=== PATIENT | female | born 1950 | race Caucasian/White ===

== ENCOUNTER 2017-12-25 16:14 | Emergency (ER) | payer MEDICARE, SELFPAY ==
[2017-12-25 16:15] VITALS: BP 148/107; PULSE 86; RESP 20; TEMP 36.8; O2SAT 98; BMI 23.6
--- NOTE | 2017-12-25 17:33 | CT_ITS ---
CT abdomen pelvis wo con CLINICAL INDICATION: Right flank pain, history of kidney stones ITS.REASON: FLANK PAIN ORDERING PHYSICIAN: Jorge Barrow MD PATIENT AGE: 67 years COMPARISON: 07/12/2016 TECHNIQUE: Axial images obtained with sagittal and coronal reformats. PROCEDURE: Oral Contrast: None IV Contrast: None . FINDINGS: No acute finding lower chest. There is a small hiatal hernia. The liver, gallbladder, spleen, adrenal glands, and pancreas have an unremarkable unenhanced CT appearance. There is right hydronephrosis. There are multiple right renal calculi in the lower pole of the right kidney. Multiple stones are present in the proximal right ureter largest of which measures 6 mm causing moderate right hydronephrosis and proximal hydroureter. There is mild thickening of the soft tissues lateral to the proximal right ureter. The mid and distal right ureter are not dilated with no distal ureteral stones evident. There are small stone fragments present proximal to the largest stone in the proximal right ureter. There is a hyperdensity involving the cortical aspect of the left kidney posteriorly 6 mm consistent with a hyperdense cyst. There is minimal stranding of the fat around the proximal right ureter. Unremarkable appendix. No intestinal obstruction or free air. Urinary bladder decompressed. No evidence of diverticulitis. No acute bony anomalies. IMPRESSION: 6 mm proximal right ureteral stone with small stone fragments proximal to this. This is causing moderate right hydronephrosis and proximal hydroureter. Scattered small stone fragments are present in the lower pole the right kidney. The stones appear fragmented when compared to the previous study except for the larger fragment in the proximal right ureter. Has the patient had interval lithotripsy? There is soft tissue thickening lateral to the proximal right ureter. If the patient has had recent lithotripsy, this could be related to a small amount of hemorrhage. Mild stranding of the proximal ureteral fat.
[2017-12-25 17:43] LABS: Microscopic, Urine URINE MICROSCOPIC (MICROSCOPIC)
[2017-12-25 17:44] LABS: Basophils # 0.1 K/mm3 (0-0.2); Basophils % 0.3 % (0.1-2.0); Eosinophils % 0.2 % (0.1-12.0); Hematocrit 44.2 % (37.0-47.0); Hemoglobin 14.4 g/dL (12.2-16.2); Lymphocytes # 1.7 K/mm3 (0.7-4.5); Lymphocytes % 8.9 K/mm3 (10-50); Mean Corpuscular HGB Conc 32.5 g/dL (31.8-35.4); Mean Corpuscular Hemoglobin 28.3 pg (27.0-31.2); Mean Corpuscular Volume 87.1 fl (81-99); Mean Platelet Volume 7.5 fl (7.4-10.4); Monocytes # 0.6 K/mm3 (0.1-1.0); Monocytes % 3.4 % (1.7-9.3); Neutrophils # 16.4 K/mm3 (1.8-7.8); Neutrophils % 87.2 % (37.0-80.0); Platelet Count 337 K/mm3 (142-424); Red Blood Count 5.07 M/mm3 (4.20-5.40); Red Cell Distribution Width 12.8 % (11.5-17.5); White Blood Count 18.8 K/mm3 (4.8-10.8)
[2017-12-25 17:48] LABS: MANUAL DIFFERENTIAL MANUAL DIFFERENTIAL (MANUAL DIFF)
[2017-12-25 17:49] LABS: Appearance,Urine SL CLOUDY (Clear); Bilirubin,Urine Negative (Negative); Blood, Urine 2+ (Negative); Color,Urine YELLOW (Yellow); Glucose,Urine (UA) Negative (Negative); Ketones,Urine TRACE (Negative); Leukocyte Esterase,Urine 2+ (Negative); Nitrate,Urine POSITIVE (Negative); PH,Urine 6.5 (5.0-8.5); Protein,Urine 2+ (Negative); Specific Gravity, Urine 1.025 (1.005-1.030); Urobilinogen,Urine 0.2 EU/dl (0.2)
[2017-12-25 17:57] LABS: Alanine Aminotransferase 28 U/L (12-78); Albumin Level 3.9 gm/dL (3.4-5.0); Alkaline Phosphatase 148 U/L (46-116); Anion Gap 13.2 mEq/L (5-15); Aspartate Amino Transferase 12 U/L (15-37); Bilirubin,Total 0.5 mg/dL (0.2-1.0); Blood Urea Nitrogen 15 mg/dL (7-18); Calcium 8.8 mg/dL (8.5-10.1); Carbon Dioxide 26 mmol/L (21.0-32.0); Chloride 106 mmol/L (98-107); Creatinine Clearance Estimated 48 mL/min (0-300); Creatinine,Serum 0.87 mg/dL (0.55-1.02); Estimated Glomerular Filt Rate 65 ml/min (>60); GFR (African American) 78 ML/MIN (>60); Globulin 3.8 gm/dl (1.3-3.2); Glucose 111 mg/dL (74-106); Potassium 4.2 mmoL/L (3.5-5.1); Sodium 141 mmol/L (136-145); Total Protein,Serum 7.7 gm/dL (6.4-8.2)
[2017-12-25 17:57] LABS: Bacteria,Urine 3+ /lpf; RBC,Urine Occasional #/hpf (0-3); Squamous Epithelial Cell,Urine Occasional #/hpf (0-5)
[2017-12-25 18:30] LABS: Lymphocytes % 5 % (10-50); Monocytes % 1 % (2-9); Neutrophils % 94 % (42-76); Total Cells Counted 100
[2017-12-25 18:31] LABS: Platelet Estimate Normal; RBC Morphology Normal
--- NOTE | 2017-12-25 18:56 | HMH.EDGENADL ---
ED Disposition Clinical Impression: Right ureteral calculus Urinary tract infection Qualifiers: Urinary tract infection type: acute pyelonephritis Qualified Code(s): N10 - Acute pyelonephritis Disposition: Xfer Short-Term Hosp Condition on Discharge: Fair Referrals: Brooklynn Torres MD [Primary Care Provider] - - Critical Care Critical Care Time: No Attestation: On 12/25/17, the high probability of a clinically significant, sudden or life threatening deterioration of the following system(s) required my full and direct attention, intervention and personal management. The time I documented below is in addition to time spent performing reported procedures but includes the following listed in this critical care notation. Medical Decision Making Vital Signs: 12/25/17 16:15 Temperature 98.2 F Temperature Source Oral Pulse Rate [Right Radial] 86 Respiratory Rate 20 Blood Pressure [Right Arm] 148/107 Blood Pressure Mean [Right Arm] 120 Blood Pressure Source [Right Arm] Automatic Cuff Blood Pressure Position [Right Arm] Sitting 02 Sat by Pulse Oximetry 98 Oxygen Delivery Method Room Air - Lab Data Lab Results 12/25/17 17:35: WBC 18.8 H, RBC 5.07, Hgb 14.4, Hct 44.2, MCV 87.1, MCH 28.3, MCHC 32.5, RDW 12.8, Plt Count 337, MPV 7.5, Neut % (Auto) 87.2 H, Lymph % (Auto) 8.9 L, [place] % (Auto) 3.4, Eos % (Auto) 0.2, Baso % (Auto) 0.3, Neut # (Auto) 16.4 H, Lymph # (Auto) 1.7, [place] # (Auto) 0.6, Eos # (Auto) 0.0, Baso # (Auto) 0.1, Total Counted 100, Neutrophils % (Manual) 94 H, Lymphocytes % (Manual) 5 L, Monocytes % (Manual) 1 L, Platelet Estimate Normal, RBC Morphology Normal 12/25/17 17:35: Sodium 141, Potassium 4.2, Chloride 106, Carbon Dioxide 26, Anion Gap 13.2, BUN 15, Creatinine 0.87, Estimated Creat Clear 48, Estimated GFR 65, Est GFR ( Amer) 78, Glucose 111 H, Calcium 8.8, Total Bilirubin 0.5, AST 12 L, ALT 28, Alkaline Phosphatase 148 H, Total Protein 7.7, Albumin 3.9, Globulin 3.8 H, Albumin/Globulin Ratio 1.0 L 12/25/17 17:39: Urine Color Yellow, Urine Appearance Sl cloudy, Urine pH 6.5, Ur Specific [place] 1.025, Urine Protein 2+, Urine Glucose (UA) Negative, Urine Ketones Trace, Urine Blood 2+, Urine Nitrate Positive, Urine Bilirubin Negative, Urine Urobilinogen 0.2, Ur Leukocyte Esterase 2+ A, Urine RBC Occasional, Urine WBC 5-10, Ur Squamous Epith Cells Occasional, Urine Bacteria 3+ Result diagrams: 12/25/17 17:35 12/25/17 17:35 Orders (Tests/Meds): ED MEDICATIONS Discontinued Medications Generic Name Dose Route Start Last Admin Trade Name Sathishq PRN Reason Stop Dose Admin Sodium Chloride 1,000 mls @ 999 mls/hr 12/25/17 17:45 12/25/17 17:46 Sod Chlor 0.9% 1000ml Bag IV 12/25/17 18:45 999 mls/hr .Q1H1M JEANETTE Administration Ceftriaxone Sodium 1 gm/ 50 mls @ 100 mls/hr 12/25/17 19:14 12/25/17 19:30 Sodium Chloride IV 12/25/17 19:43 100 mls/hr ONCE ONE Administration Ketorolac Tromethamine 30 mg 12/25/17 17:34 12/25/17 17:46 Toradol 30mg/Ml Vial IV 12/25/17 17:35 30 mg ONCE ONE Administration Morphine Sulfate 4 mg 12/25/17 19:14 12/25/17 19:30 Morphine 4mg/Ml Syringe IV 12/25/17 19:15 4 mg ONCE ONE Administration Ondansetron HCl 4 mg 12/25/17 17:34 12/25/17 17:46 Zofran 4mg/2ml Vial IV 12/25/17 17:35 4 mg ONCE ONE Administration Ondansetron HCl 4 mg 12/25/17 19:14 12/25/17 19:30 Zofran 4mg/2ml Vial IV 12/25/17 19:15 4 mg ONCE ONE Administration ORDERS Category Date Time Status Urine Culture Stat Micro 12/25/17 17:39 Received - CT Data CT Scan: Abdomen, Pelvis Time Received: 19:[address] Reviewed: Yes: I have viewed the radiologist's interpretation Findings Narrative: 6 mm proximal right ureteral stone with small stone fragments proximal to that, moderate hydronephrosis. - Justin Inquiry Pt receiving controlled substance: Yes Justin was queried for this patient: No Reason not queried -: Emergent pt c
--- NOTE | 2017-12-25 23:22 | PC.NURSE ---
[facility] CALLED ADVISING THEY HAD A BED SAVED FOR PT, THAT THEY WOULD CALL WITHIN HR AND 1/2, THAT THEY WERE WAITING ON THE HOSPITALIST TO CONFIRM PLACEMENT.
--- NOTE | 2017-12-26 04:04 | PC.NURSE ---
[facility] called with bed placement. pt here to take her .
[2017-12-26 04:08] VITALS: BP 100/48; PULSE 54; RESP 16; TEMP 36.8
== END 2017-12-26 04:09 | disposition short-term general hospital (02) ==
PROVIDERS: Emergency Provider Emergency Medicine; PCP Family Medicine
DX: N13.6 Pyonephrosis (principal); Z87.442 Personal history of urinary calculi; F17.210 Nicotine dependence, cigarettes, uncomplicated; Z88.2 Allergy status to sulfonamides
CPT/HCPCS: 74176; 80053; 81001; 85007; 85025; 87086; 87088; 87186; 96365; 96366; 96367; 96374; 96375; 96376; 99284; J2405

== ENCOUNTER → 2018-03-06 15:29 | Outpatient (CLI) | payer MEDICARE, SELFPAY ==
[2018-03-06 15:56] LABS: Basophils # 0.1 K/mm3 (0-0.2); Basophils % 0.5 % (0.1-2.0); Eosinophils # 0.2 K/mm3 (0.0-0.4); Eosinophils % 1.3 % (0.1-12.0); Hematocrit 42.9 % (37.0-47.0); Hemoglobin 13.9 g/dL (12.2-16.2); Lymphocytes # 2.8 K/mm3 (0.7-4.5); Lymphocytes % 22.9 K/mm3 (10-50); Mean Corpuscular HGB Conc 32.3 g/dL (31.8-35.4); Mean Corpuscular Hemoglobin 28.2 pg (27.0-31.2); Mean Corpuscular Volume 87.1 fl (81-99); Mean Platelet Volume 7.4 fl (7.4-10.4); Monocytes # 0.6 K/mm3 (0.1-1.0); Monocytes % 5.2 % (1.7-9.3); Neutrophils # 8.4 K/mm3 (1.8-7.8); Neutrophils % 70.2 % (37.0-80.0); Platelet Count 314 K/mm3 (142-424); Red Blood Count 4.92 M/mm3 (4.20-5.40); Red Cell Distribution Width 12.6 % (11.5-17.5)
[2018-03-06 17:06] LABS: Free T4 (Free Thyroxine) 2.05 ng/dl (0.76-1.46)
== END ==
PROVIDERS: PCP Family Medicine; Visit Provider Otolaryngology
DX: Z01.818 Encounter for other preprocedural examination (principal); D48.5 Neoplasm of uncertain behavior of skin; E04.9 Nontoxic goiter, unspecified
CPT/HCPCS: 36415; 84439; 84443; 85025; 93005

== ENCOUNTER → 2018-05-12 13:24 | Outpatient (CLI) | payer MEDICARE, SELFPAY ==
[2018-05-12 14:38] LABS: Free T4 (Free Thyroxine) 1.64 ng/dl (0.76-1.46); Thyroid Stimulating Hormone 0.01 uIU/ml (0.358-3.740)
[2018-05-13 15:23] LABS: Triiodothyronine (T3) Free 4.4 pg/mL (2.0-4.4)
== END ==
PROVIDERS: Visit Provider Otolaryngology
DX: E05.00 Thyrotoxicosis with diffuse goiter without thyrotoxic crisis or storm (principal)
CPT/HCPCS: 36415; 84439; 84443; 84481

== ENCOUNTER → 2018-06-05 14:33 | Outpatient (CLI) | payer MEDICARE, SELFPAY ==
[2018-06-05 17:32] LABS: Free T4 (Free Thyroxine) 1.41 ng/dl (0.76-1.46); Thyroid Stimulating Hormone 0.01 uIU/ml (0.358-3.740)
== END ==
PROVIDERS: Visit Provider Otolaryngology
DX: E05.00 Thyrotoxicosis with diffuse goiter without thyrotoxic crisis or storm (principal)
CPT/HCPCS: 36415; 84439; 84443

== ENCOUNTER → 2018-09-18 14:48 | Outpatient (CLI) | payer MEDICARE, SELFPAY ==
[2018-09-18 16:42] LABS: Free T4 (Free Thyroxine) 0.96 ng/dl (0.76-1.46); Thyroid Stimulating Hormone 0.03 uIU/ml (0.358-3.740)
[2018-09-22 11:14] LABS: Triiodothyronine (T3) Free 2.6 pg/mL (2.0-4.4)
== END ==
PROVIDERS: Visit Provider Otolaryngology
DX: E05.00 Thyrotoxicosis with diffuse goiter without thyrotoxic crisis or storm (principal)
CPT/HCPCS: 36415; 84439; 84443; 84481

== ENCOUNTER → 2019-03-03 14:24 | Outpatient (CLI) | payer MEDICARE, SELFPAY ==
--- NOTE | 2019-03-03 14:28 | XR_ITS ---
XR shoulder RT min 2V HISTORY: ITS.REASON: RT SHOULDER PAIN ORDERING PHYSICIAN: Arvind Anton MD PATIENT AGE: 68 years Comparison: None FINDINGS: No fracture or dislocation. No lytic or blastic change. There is normal mineralization. There is mild subacromial stenosis which may result in rotator cuff pathology. No other significant anomalies are evident. IMPRESSION: Mild right subacromial stenosis
== END ==
PROVIDERS: PCP Family Medicine; Visit Provider Family Medicine
DX: M25.511 Pain in right shoulder (principal)
CPT/HCPCS: 73030

== ENCOUNTER 2020-08-23 09:32 | Emergency (ER) | payer MEDICARE, SELFPAY ==
[2020-08-23 09:33] VITALS: BP 135/45; PULSE 68; RESP 19; TEMP 36.9; O2SAT 98; BMI 23.6
[2020-08-23 09:54] LABS: UTC Strep Screen (Rapid) Negative (Negative)
--- NOTE | 2020-08-23 10:26 | HMH.EDUTC ---
[facility] Disposition Clinical Impression: Viral syndrome Pharyngitis Qualifiers: Pharyngitis/tonsillitis etiology: unspecified etiology Qualified Code(s): J02.9 - Acute pharyngitis, unspecified Disposition: Home, Self-Care Condition on Discharge: Good Instructions: DI for Viral Syndrome Additional Instructions: Drink plenty of fluids. Take tylenol for pain or fever. Take the medications as directed. Follow up with your regular doctor. GO TO THE ER FOR ANY WORSENING SYMPTOMS FOLLOW THE DIRECTIONS ON THE COVID-19 HAND OUT THAT WE GAVE YOU REGARDING SELF-ISOLATION UNTIL YOU KNOW YOUR COVID-19 RESULTS Prescriptions: Azithromycin [Z-Jorge 250mg Tab*] 250 mg PO UD DOSE PK #6 tab Transmission Status: Received by [facility] Referrals: Brooklynn Torres MD [Primary Care Provider] - Time of Disposition: 10:31 Medical Decision Making - Medical Records Medical records reviewed: No: I reviewed the patient's medical records. - Justin Inquiry Pt receiving controlled substance: No Vital Signs: 08/23/20 09:33 08/23/20 10:38 Temperature 98.4 F 98.4 F Temperature Source Oral Oral Pulse Rate 68 Pulse Rate [Left Radial] 68 Respiratory Rate 19 19 Blood Pressure 135/45 L Blood Pressure [Right Arm] 135/45 L Blood Pressure Mean [Right Arm] 75 Blood Pressure Source [Right Arm] Automatic Cuff Blood Pressure Position Sitting Blood Pressure Position [Right Arm] Sitting 02 Sat by Pulse Oximetry 98 Oxygen Delivery Method Room Air Room Air - Lab Data Lab results reviewed: Yes: I reviewed the patient's lab results. Lab Results 08/23/20 09:53: Strep Scn Rapid Clinic Negative Orders (Tests/Meds): ORDERS Category Date Time Status Covid-19 Nasal PCR Sendout [place] Routine Lab 08/23/20 10:08 Ordered Strep Screen Confirmation Stat Micro 08/23/20 09:53 Stop Req [facility] HPI - General Stated complaint: sore throat,headache Time Seen by Provider: 08/23/20 09:35 Mode of Arrival: Ambulatory Source of Information: Patient Limitations: No Limitations Description of Symptoms (Recalled from Triage Doc. by RN): c/o headache and sore throat since Saturday HEENT Symptoms (Recalled from RN notes): Yes Resp Symptoms (Recalled from RN notes): No Skin Symptoms (Recalled from RN notes): No MS Symptoms (Recalled from RN notes): No Functional Status (Recalled from RN notes): wnl - History of Present Illness Provider Complaint: She c/o sore throat, sinus drainage, right ear pain, head ache and feeling bad for the past 2 days. - Related Data Previous Rx's Medication Instructions Recorded methimazole 5 mg tablet 5 mg PO DAILY #90 tab 09/22/18 Azithromycin [Z-Jorge 250mg Tab*] 250 mg PO UD DOSE PK #6 tab 08/23/20 Allergies Allergy/AdvReac Type Severity Reaction Status Date / Time Sulfa (Sulfonamide Allergy Unknown Verified 06/09/18 13:43 Antibiotics) - Worker's Comp Is this a Worker's Comp case?: No [facility] History - Hepatitis A Screen Drug use history?: No High risk sexual behaviors?: No History of sexually transmitted infection?: No Currently employed?: No Childcare worker?: No Do you have indoor plumbing?: Yes Do you have electricity?: Yes Attestation statement:: This patient has been screened for Hepatitis A risk factors. I have reviewed the patient's past medical history: Yes Medical History: Reports:: Kidney Stones Denies:: Cancer, Diabetes Mellitus Type 1, Diabetes Mellitus Type 2, Internal Pacemaker, MRSA, Seizures Other Medical History: Reports: Thyroid Disease. Denies: Blood Transfusion Reaction Laterality Cases: Left: Arthroscopy Shoulder Other Surgeries: Yes: Thyroidectomy, Tubal Ligation, Other. No: Pacemaker Amputation: No Fractures: No - Social History Smoking Status: Current every day smoker Tobacco Type: cigarettes # Packs/Day (cigarettes): 1 Alcohol Intake: never Alcohol Intake Frequency:: other Substance Use Type: denies use Occupational Status
[2020-08-23 10:38] VITALS: BP 135/45; PULSE 68; RESP 19; TEMP 36.9; O2SAT 98
--- NOTE | 2020-08-24 14:08 | PC.NURSE ---
PT CALLED AND RESULTS GIVEN OF COVID TEST
== END 2020-08-23 10:39 | disposition home or self-care (01) ==
PROVIDERS: Emergency Provider Nurse Practitioner Family; PCP Family Medicine
DX: Z20.828 Contact with and (suspected) exposure to other viral communicable diseases (principal); B34.9 Viral infection, unspecified; Z88.2 Allergy status to sulfonamides; Z87.442 Personal history of urinary calculi; F17.210 Nicotine dependence, cigarettes, uncomplicated
CPT/HCPCS: G0463; 87880; 99202; U0003

== ENCOUNTER 2020-08-28 11:09 | Emergency (ER) | payer MEDICARE, SELFPAY ==
[2020-08-28 11:20] VITALS: BP 139/73; PULSE 71; RESP 17; TEMP 36.7; O2SAT 96; BMI 24.5
--- NOTE | 2020-08-28 11:26 | XR_ITS ---
PROCEDURE: XR CHEST 2V CLINICAL HISTORY: WEAKNESS Smoking history COMPARISON: CR CXR CHEST(2 VIEWS-NOT PORTABLE) from 06/24/2014 FINDINGS: The cardiomediastinal silhouette and pulmonary vascularity are within normal limits. The lungs are clear without infiltrates, suspicious nodules, or pleural effusions. There are calcified left hilar nodes. There is a total left shoulder prosthesis noted. There is prominent degenerate change of the right shoulder with high-riding humeral head and marked subacromial stenosis. No acute bony abnormalities. IMPRESSION: No acute findings. Dictated by: Dr. Ge Mclean MD 08/28/2020 14:32 Dr. Ge Mclean MD in [place] 08/28/2020 14:32
--- NOTE | 2020-08-28 11:30 | ECG_ITS ---
APPROVED REPORT Exam: Resting ECG HR:60 bpm ECG Measurements Heart Rate 60 AXES VA 158 P 54 QRSd 78 QRS 25 QT 388 T 46 QTc 388 Conclusion Normal sinus rhythm Normal ECG Electronically signed by : Alfredito Alcantara, 09/02/2020 11:35:00
--- NOTE | 2020-08-28 11:42 | HMH.EDWEAK ---
ED Disposition Clinical Impression: Acute UTI (urinary tract infection), Acute kidney injury Disposition: Home, Self-Care Condition on Discharge: Good Instructions: DI for Urinary Tract Infection (UTI) Prescriptions: cephALEXin [Keflex 500mg Cap] 500 mg PO BID #14 cap Transmission Status: Pending to [facility] Referrals: Brooklynn Torres MD [Primary Care Provider] - - Critical Care Critical Care Time: No Attestation: On 08/28/20, the high probability of a clinically significant, sudden or life threatening deterioration of the following system(s) required my full and direct attention, intervention and personal management. The time I documented below is in addition to time spent performing reported procedures but includes the following listed in this critical care notation. Medical Decision Making - Medical Records Medical records reviewed: Yes: I reviewed the patient's medical records. - Justin Inquiry Pt receiving controlled substance: No Vital Signs: 08/28/20 11:20 Temperature 98.0 F Temperature Source Oral Pulse Rate [Right Radial] 71 Respiratory Rate 17 Blood Pressure [Right Arm] 139/73 Blood Pressure Mean [Right Arm] 95 02 Sat by Pulse Oximetry 96 Oxygen Delivery Method Room Air - Lab Data Lab Results 08/28/20 11:39: Urine Color Yellow, Urine Appearance Cloudy, Urine pH 6.0, Ur Specific [place] 1.025, Urine Protein Negative, Urine Glucose (UA) Negative, Urine Ketones Negative, Urine Blood Trace-l, Urine Nitrate Positive, Urine Bilirubin Negative, Urine Urobilinogen 0.2, Ur Leukocyte Esterase 2+ A, Urine RBC 3-5, Urine WBC 20-50, Ur Squamous Epith Cells 3-5, Amorphous Sediment 1+, Urine Bacteria 2+, Hyaline Casts Occasional, Urine Mucus 2+ 08/28/20 11:40: Troponin I < 0.01, TSH 0.87 08/28/20 11:40: WBC 16.5 H, RBC 5.21, Hgb 15.7, Hct 47.2 H, MCV 90.6, MCH 30.2, MCHC 33.3, RDW 13.1, Plt Count 367, MPV 7.8, Neut % (Auto) 78.2, Lymph % (Auto) 14.9, [place] % (Auto) 4.8, Eos % (Auto) 1.2, Baso % (Auto) 0.8, Neut # (Auto) 12.9 H, Lymph # (Auto) 2.5, [place] # (Auto) 0.8, Eos # (Auto) 0.2, Baso # (Auto) 0.1, Total Counted 100, Neutrophils % (Manual) 65, Lymphocytes % (Manual) 23, Monocytes % (Manual) 10 H, Eosinophils % (Manual) 2, Platelet Estimate Normal, RBC Morphology Normal 08/28/20 11:40: Sodium 139, Potassium 3.8, Chloride 104, Carbon Dioxide 27, Anion Gap 11.8, BUN 19 H, Creatinine 1.10 H, Estimated Creat Clear 44, Estimated GFR 49 L, Est GFR ( Amer) 59, Glucose 99, Calcium 9.9, Total Bilirubin 0.6, AST 28, ALT 26, Alkaline Phosphatase 121, Total Protein 7.7, Albumin 4.5, Globulin 3.2, Albumin/Globulin Ratio 1.4 08/28/20 11:40: Free T4 1.55 Result diagrams: 08/28/20 11:40 08/28/20 11:40 Orders (Tests/Meds): ED MEDICATIONS Generic Name Dose Route Start Last Admin Trade Name Freq PRN Reason Stop Dose Admin Ceftriaxone Sodium 1 gm/ 50 mls @ 100 mls/hr 08/28/20 12:15 08/28/20 12:18 Sodium Chloride IV 09/11/20 12:14 100 mls/hr Q24H JEANETTE Administration Protocol Discontinued Medications Generic Name Dose Route Start Last Admin Trade Name Freq PRN Reason Stop Dose Admin Sodium Chloride 1,000 mls @ 999 mls/hr 08/28/20 11:30 08/28/20 11:39 Sod Chlor 0.9% 1000ml Bag IV 08/28/20 12:30 999 mls/hr .Q1H1M JEANETTE Administration ORDERS Category Date Time Status XR chest 2V Stat Exams 08/28/20 11:26 Taken Troponin I Q3H Lab 08/28/20 14:30 Ordered Troponin I Q3H Lab 08/28/20 17:30 Ordered Urine Culture Stat Micro 08/28/20 11:39 Received - Radiology Data #1 Image(s): Chest Image Reviewed: Yes I reviewed the patient's radiology results, Yes I reviewed the patient's radiology image Preliminary Findings: Normal/NAD - ECG Data Tracing #1 Normal ventricular rate of 60 bpm. Normal TX interval. Normal QTC. Consultation was normal sinus rhythm with no ST changes. ECG initial impression date: 08/28/20 ECG initial impression time: 11:32 No
[2020-08-28 11:46] LABS: Microscopic, Urine URINE MICROSCOPIC (MICROSCOPIC)
[2020-08-28 11:48] LABS: Basophils # 0.1 K/mm3 (0-0.2); Basophils % 0.8 % (0.1-2.0); Eosinophils # 0.2 K/mm3 (0.0-0.4); Eosinophils % 1.2 % (0.1-12.0); Hematocrit 47.2 % (37.0-47.0); Hemoglobin 15.7 g/dL (12.2-16.2); Lymphocytes # 2.5 K/mm3 (0.7-4.5); Lymphocytes % 14.9 % (10-50); Mean Corpuscular HGB Conc 33.3 g/dL (31.8-35.4); Mean Corpuscular Hemoglobin 30.2 pg (27.0-31.2); Mean Corpuscular Volume 90.6 fl (81-99); Mean Platelet Volume 7.8 fl (7.4-10.4); Monocytes # 0.8 K/mm3 (0.1-1.0); Monocytes % 4.8 % (1.7-9.3); Neutrophils # 12.9 K/mm3 (1.8-7.8); Neutrophils % 78.2 % (37.0-80.0); Platelet Count 367 K/mm3 (142-424); Red Blood Count 5.21 M/mm3 (4.20-5.40); Red Cell Distribution Width 13.1 % (11.5-17.5); White Blood Count 16.5 K/mm3 (4.8-10.8)
[2020-08-28 11:48] LABS: Appearance,Urine CLOUDY (Clear); Bilirubin,Urine Negative (Negative); Blood, Urine TRACE-L (Negative); Color,Urine YELLOW (Yellow); Glucose,Urine (UA) Negative (Negative); Ketones,Urine Negative (Negative); Leukocyte Esterase,Urine 2+ (Negative); Nitrate,Urine POSITIVE (Negative); Protein,Urine Negative (Negative); Specific Gravity, Urine 1.025 (1.005-1.030); Urobilinogen,Urine 0.2 EU/dl (0.2)
[2020-08-28 11:52] LABS: MANUAL DIFFERENTIAL MANUAL DIFFERENTIAL (MANUAL DIFF)
[2020-08-28 11:53] LABS: Chloride 104 mmol/L (98-107); Potassium 3.8 mmoL/L (3.5-5.1); Sodium 139 mmol/L (136-145)
[2020-08-28 11:55] LABS: Blood Urea Nitrogen 19 mg/dl (7-17); Creatinine Clearance Estimated 44 mL/min (50-200); Estimated Glomerular Filt Rate 49 ml/min (>60); GFR (African American) 59 ML/MIN (>60)
[2020-08-28 11:56] LABS: Alanine Aminotransferase 26 U/L (12-78); Albumin Level 4.5 g/dl (3.5-5.0); Albumin/Globulin Ratio 1.4 (1.1-1.8); Alkaline Phosphatase 121 U/L (38-126); Anion Gap 11.8 mEq/L (5-15); Aspartate Amino Transferase 28 U/L (14-36); Bilirubin,Total 0.6 mg/dl (0.2-1.3); Calcium 9.9 mg/dl (8.4-10.2); Carbon Dioxide 27 mmol/L (22.0-30.0); Globulin 3.2 g/dL (1.3-3.2); Glucose 99 mg/dl (74-100); Total Protein,Serum 7.7 g/dl (6.3-8.2)
[2020-08-28 11:57] LABS: Amorphous Sediment,Urine 1+ /lpf; Bacteria,Urine 2+ /lpf; Hyaline Casts,Urine Occasional #/lpf (0); Mucus,Urine 2+ /lpf; WBC,Urine 20-50 #/hpf (0-3)
[2020-08-28 12:00] LABS: Eosinophils % 2 % (0-3); Lymphocytes % 23 % (10-50); Monocytes % 10 % (2-9); Neutrophils % 65 % (42-76); Platelet Estimate Normal; RBC Morphology Normal; Total Cells Counted 100
[2020-08-28 12:14] LABS: Troponin I < 0.01 ng/ml (0.00-0.034)
[2020-08-28 12:26] LABS: Free T4 (Free Thyroxine) 1.55 ng/dl (0.78-2.19)
[2020-08-28 12:27] LABS: Thyroid Stimulating Hormone 0.87 uIU/mL (0.465-4.68)
[2020-08-28 12:59] VITALS: BP 153/74; PULSE 75; RESP 15; TEMP 36.8; O2SAT 98
== END 2020-08-28 13:05 | disposition home or self-care (01) ==
PROVIDERS: Emergency Medicine; Emergency Provider Nurse Practitioner Family; PCP Family Medicine
DX: N30.00 Acute cystitis without hematuria (principal); N17.9 Acute kidney failure, unspecified; F17.210 Nicotine dependence, cigarettes, uncomplicated
CPT/HCPCS: 71046; 80053; 81001; 84439; 84443; 84484; 85007; 85025; 87086; 87088; 87186; 93005; 96365; 96367; 99283

== ENCOUNTER 2021-10-25 17:49 | Inpatient (IN) | payer MEDICARE, SELFPAY ==
[2021-10-25] VITALS (8 sets, daily range): BP systolic 123–156; BP diastolic 59–109; PULSE 59–75; RESP 16–18; TEMP 36.7–36.8; O2SAT 94–99; BMI 24.5; BMI 24.7
--- NOTE | 2021-10-25 18:06 | CT_ITS ---
PROCEDURE INFORMATION: Exam: CT Abdomen And Pelvis With Contrast Exam date and time: 10/25/2021 6:06 PM Age: 71 years old Clinical indication: Abdominal pain; Generalized TECHNIQUE: Imaging protocol: Computed tomography of the abdomen and pelvis with contrast. Radiation optimization: All CT scans at this facility use at least one of these dose optimization techniques: automated exposure control; mA and/or kV adjustment per patient size (includes targeted exams where dose is matched to clinical indication); or iterative reconstruction. Contrast material: ISOVUE; Contrast volume: 75 ml; Contrast route: IV; COMPARISON: ABDPELWO CT abdomen pelvis wo con 12/25/2017 5:44 PM FINDINGS: Lungs: Calcified granuloma at the left lung base. Mediastinal space: Small hiatal hernia with potential wall thickening lower esophagus. Liver: Normal. No mass. Gallbladder and bile ducts: No calcified stones. No ductal dilation. Pancreas: Normal enhancement. No ductal dilation. Spleen: Wedge-shaped hypodensity involving the mid spleen measuring approximately 4.2 x 6.5 cm with serpiginous hyperdensity near the hilum. Adrenal glands: No mass. Kidneys and ureters: Renal cysts measuring up to 11 mm. 18 mm nonobstructing right lower pole renal calcification. Stomach and bowel: No obstruction. No mucosal thickening. Appendix: No evidence of appendicitis. Intraperitoneal space: No free air. No significant fluid collection. Vasculature: No abdominal aortic aneurysm. Lymph nodes: No enlarged lymph nodes. Urinary bladder: No acute abnormality. Reproductive: No acute abnormality. Bones/joints: No acute fracture. Soft tissues: No soft tissue swelling. IMPRESSION: 1. Wedge-shaped hypodensity involving the mid spleen compatible with splenic infarction with serpiginous hyperdensity near the hilum which which I favor represents opacified vessels over active extravasation. 2. Small hiatal hernia with potential wall thickening lower esophagus which can be seen with infectious or infiltrating processes. Consider correlation with direct inspection. 3. 18 mm nonobstructing right lower pole renal calcification.
--- NOTE | 2021-10-25 18:26 | HMH.EDABDPAI ---
ED Disposition <Collin Johnson - Last Filed: 10/25/21 19:37> Condition on Discharge: Good - Critical Care Critical Care Time: No <Jaime Byrd - Last Filed: 10/25/21 20:57> Clinical Impression: Infarction of spleen, Tobacco use Disposition: Admitted As Inpatient Attestation: On 10/25/21, the high probability of a clinically significant, sudden or life threatening deterioration of the following system(s) required my full and direct attention, intervention and personal management. The time I documented below is in addition to time spent performing reported procedures but includes the following listed in this critical care notation. Medical Decision Making - Medical Records Medical records reviewed: Yes: I reviewed the patient's medical records. - Lab Data Lab results reviewed: Yes: I reviewed the patient's lab results. Result diagrams: 10/25/21 18:17 10/25/21 18:17 <Collin Johnson - Last Filed: 10/25/21 19:37> - Justin Inquiry Pt receiving controlled substance: No - Lab Data Result diagrams: 10/25/21 18:17 10/25/21 18:17 - CT Data CT Scan: Abdomen, Pelvis Time Received: 20:[address] Reviewed: Yes: I have viewed the radiologist's interpretation Preliminary Findings: Abnormal (spleenic infart) - ECG Data Tracing #1 Normal Sinus Rhythm: Yes Ischemic changes: non-specific ST-T wave changes - Physician Consults Physician Consulted: natividad Reason -: Admission <Jaime Byrd - Last Filed: 10/25/21 20:57> Vital Signs: 10/25/21 17:58 Temperature 98.3 F Temperature Source Oral Pulse Rate [Right Radial] 75 Respiratory Rate 16 Blood Pressure [Right Arm] 156/73 H Blood Pressure Mean [Right Arm] 100 Blood Pressure Source [Right Arm] Automatic Cuff Blood Pressure Position [Right Arm] Sitting 02 Sat by Pulse Oximetry 98 Oxygen Delivery Method Room Air - Lab Data Lab Results 10/25/21 18:17: WBC 13.7 H, RBC 5.14, Hgb 15.6, Hct 48.5 H, MCV 94.3, MCH 30.4, MCHC 32.2, RDW 13.1, Plt Count 330, MPV 8.3, Neut % (Auto) 75.6, Lymph % (Auto) 16.3, [place] % (Auto) 5.1, Eos % (Auto) 1.0, Baso % (Auto) 1.9, Neut # (Auto) 10.4 H, Lymph # (Auto) 2.3, [place] # (Auto) 0.7, Eos # (Auto) 0.1, Baso # (Auto) 0.3 H 10/25/21 18:17: PT 11.1, INR 0.98, APTT 24.3 10/25/21 18:17: Sodium 137, Potassium 3.7, Chloride 103, Carbon Dioxide 26, Anion Gap 11.7, BUN 16, Creatinine 1.00, Estimated Creat Clear 47, Estimated GFR 55 L, Est GFR ( Amer) 66, Glucose 127 H, Calcium 10.3 H, Total Bilirubin 1.0, AST 38 H, ALT 16, Alkaline Phosphatase 91, Total Protein 7.6, Albumin 4.5, Globulin 3.1, Albumin/Globulin Ratio 1.5 10/25/21 18:17: Lactate 1.3 10/25/21 20:06: Urine Color Yellow, Urine Appearance Sl cloudy, Urine pH 6.0, Ur Specific [place] 1.010, Urine Protein Negative, Urine Glucose (UA) Negative, Urine Ketones Negative, Urine Blood 1+, Urine Nitrate Positive, Urine Bilirubin Negative, Urine Urobilinogen 0.2, Ur Leukocyte Esterase 2+ A Orders (Tests/Meds): ED MEDICATIONS Generic Name Dose Route Start Last Admin Trade Name Freq PRN Reason Stop Dose Admin Sodium Chloride 1,000 mls @ 999 mls/hr 10/25/21 20:30 Sod Chlor 0.9% 1000ml Bag IV 10/25/21 21:30 .Q1H1M JEANETTE Discontinued Medications Generic Name Dose Route Start Last Admin Trade Name Freq PRN Reason Stop Dose Admin Iopamidol 75 ml 10/25/21 19:22 10/25/21 19:23 Iopamidol-370 (76%);100ml Bottle IV 10/25/21 19:23 75 ml ONCE ONE Administration Morphine Sulfate 4 mg 10/25/21 18:07 10/25/21 18:21 Morphine 4mg/Ml Syringe IV 10/25/21 18:08 4 mg ONCE ONE Administration Ondansetron HCl 4 mg 10/25/21 18:07 10/25/21 18:21 Ondansetron 4mg/2ml Vial IV 10/25/21 18:08 4 mg ONCE ONE Administration Sodium Chloride 10 ml 10/25/21 19:22 10/25/21 19:23 Sodium Chloride 0.9% 10ml Syr (Rad Only) IV 10/25/21 19:23 10 ml ONCE ONE Administration ORDERS Category Date Time Status Antiphosphatidylserine I
[2021-10-25 18:30] LABS: Basophils # 0.3 K/mm3 (0-0.2); Basophils % 1.9 % (0.1-2.0); Eosinophils # 0.1 K/mm3 (0.0-0.4); Hematocrit 48.5 % (37.0-47.0); Hemoglobin 15.6 g/dL (12.2-16.2); Lymphocytes # 2.3 K/mm3 (0.7-4.5); Lymphocytes % 16.3 % (10-50); Mean Corpuscular HGB Conc 32.2 g/dL (31.8-35.4); Mean Corpuscular Hemoglobin 30.4 pg (27.0-31.2); Mean Corpuscular Volume 94.3 fl (81-99); Mean Platelet Volume 8.3 fl (7.4-10.4); Monocytes # 0.7 K/mm3 (0.1-1.0); Monocytes % 5.1 % (1.7-9.3); Neutrophils # 10.4 K/mm3 (1.8-7.8); Neutrophils % 75.6 % (37.0-80.0); Platelet Count 330 K/mm3 (142-424); Red Blood Count 5.14 M/mm3 (4.20-5.40); Red Cell Distribution Width 13.1 % (11.5-17.5); White Blood Count 13.7 K/mm3 (4.8-10.8)
[2021-10-25 18:38] LABS: Activated Partial Thrombo Time 24.3 seconds (22.8-30.6); INR 0.98 (0.9-1.1); Prothrombin Time 11.1 seconds (10.1-12.5)
[2021-10-25 18:41] LABS: Alanine Aminotransferase 16 U/L (12-78); Albumin Level 4.5 g/dl (3.5-5.0); Albumin/Globulin Ratio 1.5 (1.1-1.8); Alkaline Phosphatase 91 U/L (38-126); Anion Gap 11.7 mEq/L (5-15); Aspartate Amino Transferase 38 U/L (14-36); Blood Urea Nitrogen 16 mg/dl (7-17); Calcium 10.3 mg/dl (8.4-10.2); Carbon Dioxide 26 mmol/L (22.0-30.0); Chloride 103 mmol/L (98-107); Creatinine Clearance Estimated 47 mL/min (50-200); Estimated Glomerular Filt Rate 55 ml/min (>60); GFR (African American) 66 ML/MIN (>60); Globulin 3.1 g/dL (1.3-3.2); Glucose 127 mg/dl (74-100); Lactic Acid 1.3 mmol/L (0.7-2.1); Potassium 3.7 mmoL/L (3.5-5.1); Sodium 137 mmol/L (136-145); Total Protein,Serum 7.6 g/dl (6.3-8.2)
--- NOTE | 2021-10-25 20:14 | PC.NURSE ---
Carson speaking with MICHAEL at this time.
[2021-10-25 20:22] LABS: Microscopic, Urine URINE MICROSCOPIC (MICROSCOPIC)
[2021-10-25 20:28] LABS: Coronavirus 19, PCR Not Detected (NotDetected); Influenza A, PCR Not Detected (NotDetected); Influenza B, PCR Not Detected (NotDetected)
--- NOTE | 2021-10-25 20:31 | PC.NURSE ---
Carson speaking with at this time.
--- NOTE | 2021-10-25 20:36 | ECG_ITS ---
APPROVED REPORT Exam: Resting ECG HR:50 bpm ECG Measurements Heart Rate 50 AXES NE 166 P 72 QRSd 76 QRS 59 QT 428 T 65 QTc 390 Conclusion Sinus bradycardia Otherwise normal ECG Electronically signed by : Jame Peoples MD 10/27/2021 12:38:13
[2021-10-25 20:45] LABS: Appearance,Urine SL CLOUDY (Clear); Bilirubin,Urine Negative (Negative); Blood, Urine 1+ (Negative); Color,Urine YELLOW (Yellow); Glucose,Urine (UA) Negative (Negative); Ketones,Urine Negative (Negative); Leukocyte Esterase,Urine 2+ (Negative); Nitrate,Urine POSITIVE (Negative); Protein,Urine Negative (Negative); Urobilinogen,Urine 0.2 EU/dl (0.2)
--- NOTE | 2021-10-25 21:02 | XR_ITS ---
PROCEDURE INFORMATION: Exam: XR Chest Exam date and time: 10/25/2021 9:02 PM Age: 71 years old Clinical indication: Abnormal findings; Patient HX: Spleen issue found on cat scan a few minutes ago. Cat scan was abdomen/pelvis. ; Additional info: Pain TECHNIQUE: Imaging protocol: XR of the chest. Views: 1 view. COMPARISON: CR XR CHEST 2V 08/28/2020 11:38 AM FINDINGS: Lungs: Chronic appearing interstitial coarsening. No consolidation. Pleural spaces: No pneumothorax. Heart/Mediastinum: No cardiomegaly. Bones/joints: Postsurgical changes to the left shoulder. No acute abnormality. IMPRESSION: No acute findings.
[2021-10-25 21:14] LABS: Amylase 115 U/L (30-110); Lipase 70 U/L (23-300)
[2021-10-25 21:21] LABS: INR 0.99 (0.9-1.1); Prothrombin Time 11.2 seconds (10.1-12.5)
[2021-10-25 21:28] LABS: Bacteria,Urine 1+ /lpf
--- NOTE | 2021-10-25 23:11 | PC.NURSE ---
PT ARRIVED TO [facility] VIA W/C FROM ED W/STAFF @ 1386
--- NOTE | 2021-10-26 | CA_ITS ---
APPROVED REPORT Bilateral Upper Extremity Venous Study for DVT. 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 Normal flow, augmentation and compression is seen. No evidence of Deep Vein Thrombosis. No abnormalities are demonstrated. SCV (R): Normal phasic flow is seen. Normal flow, augmentation and compression is seen. No evidence of Deep Vein Thrombosis. No abnormalities are demonstrated. Axillary (R): Normal phasic flow is seen. Normal flow, augmentation and compression is seen. No evidence of Deep Vein Thrombosis. No abnormalities are demonstrated. Brachial (R): Normal phasic flow is seen. Normal flow, augmentation and compression is seen. No evidence of Deep Vein Thrombosis. No abnormalities are demonstrated. Basilic (R): Normal phasic flow is seen. Normal flow, augmentation and compression is seen. No evidence of Deep Vein Thrombosis. No abnormalities are demonstrated. Cephalic (R): Normal phasic flow is seen. Normal flow, augmentation and compression is seen. No evidence of Deep Vein Thrombosis. No abnormalities are demonstrated. Radial (R): Normal phasic flow is seen. Normal flow, augmentation and compression is seen. No evidence of Deep Vein Thrombosis. No abnormalities are demonstrated. Ulnar (R): Normal phasic flow is seen. Normal flow, augmentation and compression is seen. No evidence of Deep Vein Thrombosis. No abnormalities are demonstrated. IJV (L): Normal phasic flow is seen. Normal flow, augmentation and compression is seen. No evidence of Deep Vein Thrombosis. No abnormalities are demonstrated. SCV (L): Normal phasic flow is seen. Normal flow, augmentation and compression is seen. No evidence of Deep Vein Thrombosis. No abnormalities are demonstrated. Axillary (L): Normal phasic flow is seen. Normal flow, augmentation and compression is seen. No evidence of Deep Vein Thrombosis. No abnormalities are demonstrated. Brachial (L): Normal phasic flow is seen. Normal flow, augmentation and compression is seen. No evidence of Deep Vein Thrombosis. No abnormalities are demonstrated. Basilic (L): Normal phasic flow is seen. Normal flow, augmentation and compression is seen. No evidence of Deep Vein Thrombosis. No abnormalities are demonstrated. Cephalic (L): Normal phasic flow is seen. Normal flow, augmentation and compression is seen. No evidence of Deep Vein Thrombosis. No abnormalities are demonstrated. Radial (L): Normal phasic flow is seen. Normal flow, augmentation and compression is seen. No evidence of Deep Vein Thrombosis. No abnormalities are demonstrated. Ulnar (L): Normal phasic flow is seen. Normal flow, augmentation and compression is seen. No evidence of Deep Vein Thrombosis. No abnormalities are demonstrated. Findings Imaging reveals a widely patent Internal Jugular Vein, Deep Venous System and Superficial Venous System bilaterally. No evidence of intraluminal venous thrombosis bilaterally. Spontaneous phasic flow is visualized. Negative for DVT. Conclusion Imaging reveals a widely patent Internal Jugular Vein, Deep Venous System and Superficial Venous System bilaterally. No evidence of intraluminal venous thrombosis bilaterally. Spontaneous phasic flow is visualized. Negative for DVT. Electronically signed by : Rahul Polanco MD 10/26/2021 14:30:51
--- NOTE | 2021-10-26 | CA_ITS ---
APPROVED REPORT EXAM: Comprehensive 2D, Doppler, and color-flow Echocardiogram Spring Fitter: Danika Maldonado RT(R) Ht: 5 ft 1 in Wt: 131lbs BSA: 1.58 BP: 147/47 mmHg Indications: Splenic infarct, smoker 2D Dimensions LVOT 1.83 cm (M/F) 1.5-2.5 LA Volume 38.80 mL LA Volume Index 24.71 mL/m2 (M/F) 16-34 M-Mode Dimensions RVDd 2.35 cm (0.9-2.6) LA Diam 2.98 cm (1.9-4.0) LVDd 4.41 cm (3.5-5.7) Ao Diam 2.33 cm (2.0-3.7) LVDs 3.80 cm (3.5-5.7) IVSd 0.65 cm (0.6-1.1) PWd 0.84 cm (0.6-1.1) EF (Teich) 55.60% FS 13.80% EDV (Teich) 88.20 mL ESV (Teich) 62.00 mL LV Diastology E Decel Time 180.00 (160-240 msec) E/A Ratio 1.0 MED E' 7.60 (< 7 cm/sec) E'/MED E' Ratio 11.64 (>14) LAT E' 9.50 (<10 cm/sec) E/LAT E' Ratio 9.32 (>14) Mitral Valve MV E Max Morales. 88.00 (40-130 cm/s) MV A Velocity 92.00 (40-130 cm/s) E/A Ratio 0.96 MV Decel. Time 180.00 (160-240 ms) MV PHT 53.00 ms Tricuspid Valve TR P. Velocity 268.00 cm/s RAP Estimate 10.00 mmHg RVSP 38.80 mmHg Left Ventricle Left atrium is mildly enlarged, left ventricle is normal size, visually estimated ejection fraction 55% with no regional wall motion abnormality, diastolic parameters are inconclusive. Right Ventricle Right atrium and right ventricle are normal size and contractility. Aortic Valve Aortic valve is minimally thickened and fibrosed, there is no aortic stenosis or aortic insufficiency. Mitral Valve Mitral valve grossly normal, there is trace mitral regurgitation. Tricuspid Valve Tricuspid valve grossly normal, there is trace tricuspid regurgitation, tricuspid regurgitation jet velocity is inadequate for calculation of the right ventricular systolic pressure. Pulmonic Valve Pulmonic valve is poorly visualized. Great Vessels Aortic root is normal size. Inferior vena cava is poorly visualized Pericardium No significant pericardial effusion noted. Conclusion 1. Mildly enlarged left atrium, normal left ventricular size, visually estimated ejection fraction 55% with no regional wall motion abnormality, diastolic parameters are inconclusive. 2. Trace mitral and tricuspid regurgitation. 3. No significant pericardial effusion noted. Electronically signed by : Anuj Sorto MD 10/26/2021 18:49:58
--- NOTE | 2021-10-26 | CA_ITS ---
APPROVED REPORT Bilateral Lower Extremity Venous Study for DVT. Commercial Lawn Specialist: LOTTIE Indications Current Smoker splenic infarct, abdominal pain, smoker Risk Factors Current Smoker Vein Imaging CFV (R): compressive, spontaneous, phasic, augmentation FEM (R): compressive, spontaneous, phasic, augmentation POP (R): compressive, spontaneous, phasic, augmentation PTV (R): Compressible GSV (R): compressive, spontaneous, phasic, augmentation Peroneals (R):Compressible CFV (L): compressive, spontaneous, phasic, augmentation FEM (L): compressive, spontaneous, phasic, augmentation POP (L): compressive, spontaneous, phasic, augmentation PTV (L): Compressible GSV (L): compressive, spontaneous, phasic, augmentation Peroneals (L):Compressible Findings No evidence of DVT or superficial thrombophlebitis in the veins scanned of the right lower extremity. No evidence of DVT or superficial thrombophlebitis in the veins scanned of the left lower extremity. Conclusion No evidence of DVT or superficial thrombophlebitis in the veins scanned of the right lower extremity. No evidence of DVT or superficial thrombophlebitis in the veins scanned of the left lower extremity. Electronically signed by : Rahul Polanco MD 10/26/2021 14:29:18
[2021-10-26 04:00] VITALS: BP 147/47; PULSE 63; RESP 16; TEMP 36.8; O2SAT 98
[2021-10-26 05:00] VITALS: BMI 24.7
--- NOTE | 2021-10-26 05:41 | PC.NURSE ---
Pt has c/o of pain x2 in abdomen, admin meds per MAR with relief. Pt is A/O x3, can ambulate to bathroom to void. No c/o of N/V thus far in shift. Call light within reach.
--- NOTE | 2021-10-26 06:27 | PC.NURSE ---
DR REESE NOTIFIED OF CONSULT.
[2021-10-26 06:46] LABS: Basophils # 0.1 K/mm3 (0-0.2); Basophils % 0.5 % (0.1-2.0); Eosinophils # 0.2 K/mm3 (0.0-0.4); Eosinophils % 1.3 % (0.1-12.0); Hematocrit 42.5 % (37.0-47.0); Lymphocytes # 2.5 K/mm3 (0.7-4.5); Lymphocytes % 19.2 % (10-50); Mean Corpuscular HGB Conc 31.9 g/dL (31.8-35.4); Mean Corpuscular Hemoglobin 30.5 pg (27.0-31.2); Mean Corpuscular Volume 95.7 fl (81-99); Mean Platelet Volume 9.9 fl (7.4-10.4); Monocytes # 0.9 K/mm3 (0.1-1.0); Monocytes % 7.3 % (1.7-9.3); Neutrophils # 9.2 K/mm3 (1.8-7.8); Neutrophils % 71.6 % (37.0-80.0); Platelet Count 271 K/mm3 (142-424); Red Blood Count 4.44 M/mm3 (4.20-5.40); Red Cell Distribution Width 13.2 % (11.5-17.5); White Blood Count 12.8 K/mm3 (4.8-10.8)
--- NOTE | 2021-10-26 06:49 | HMH.GSCON ---
*Admission Date: 10/25/21 *Reason for consult:: Splenic infarction *History of present illness: This is a 71-year-old female who presented to emergency department with increasing abdominal pain. CT scan revealed changes consistent with splenic infarct and the surgical service was consulted. Review of Systems - Constitutional Denies chills - *Cardiovascular Denies chest pain - *Respiratory Denies cough - *Gastrointestinal Reports abdominal pain [facility] History Medical History: Reports:: Kidney Stones Denies:: Cancer, Diabetes Mellitus Type 1, Diabetes Mellitus Type 2, Internal Pacemaker, MRSA, Seizures *Have you ever received a pneumonia vaccine?: No *Have you received a flu vaccine this season?: No Other Medical History: Reports: Thyroid Disease. Denies: Blood Transfusion Reaction Laterality Cases: Left: Arthroscopy Shoulder Other Surgeries: Yes: Thyroidectomy, Tubal Ligation, Other. No: Pacemaker Amputation: No Fractures: No - *Social History Smoking Status: Current every day smoker Tobacco Type: cigarettes # Packs/Day (cigarettes): 1 Alcohol Intake: never Alcohol Intake Frequency:: other Substance Use Type: denies use *Occupational Status:: retired Housing: house Household Members: spouse *Travel in the last 8 weeks: None Family Hx:: No significant family history Meds Allergies Allergy/AdvReac Type Severity Reaction Status Date / Time Sulfa (Sulfonamide Allergy Unknown Verified 10/26/21 01:17 Antibiotics) Exam Vital signs and Labs for Last 24 Hours: Temp Pulse Resp BP Pulse Ox 98.2 F 63 16 147/47 H 98 10/26/21 04:00 10/26/21 04:00 10/26/21 04:00 10/26/21 04:00 10/26/21 04:00 Laboratory Results - last 24 hr 10/25/21 18:17: WBC 13.7 H, RBC 5.14, Hgb 15.6, Hct 48.5 H, MCV 94.3, MCH 30.4, MCHC 32.2, RDW 13.1, Plt Count 330, MPV 8.3, Neut % (Auto) 75.6, Lymph % (Auto) 16.3, [place] % (Auto) 5.1, Eos % (Auto) 1.0, Baso % (Auto) 1.9, Neut # (Auto) 10.4 H, Lymph # (Auto) 2.3, [place] # (Auto) 0.7, Eos # (Auto) 0.1, Baso # (Auto) 0.3 H 10/25/21 18:17: PT 11.1, INR 0.98, APTT 24.3 10/25/21 18:17: Sodium 137, Potassium 3.7, Chloride 103, Carbon Dioxide 26, Anion Gap 11.7, BUN 16, Creatinine 1.00, Estimated Creat Clear 47, Estimated GFR 55 L, Est GFR ( Amer) 66, Glucose 127 H, Calcium 10.3 H, Total Bilirubin 1.0, AST 38 H, ALT 16, Alkaline Phosphatase 91, Total Protein 7.6, Albumin 4.5, Globulin 3.1, Albumin/Globulin Ratio 1.5 10/25/21 18:17: Lactate 1.3 10/25/21 18:17: Amylase 115 H, Lipase 70 10/25/21 20:06: Urine Color Yellow, Urine Appearance Sl cloudy, Urine pH 6.0, Ur Specific [place] 1.010, Urine Protein Negative, Urine Glucose (UA) Negative, Urine Ketones Negative, Urine Blood 1+, Urine Nitrate Positive, Urine Bilirubin Negative, Urine Urobilinogen 0.2, Ur Leukocyte Esterase 2+ A, Urine RBC 3-5, Urine WBC 5-10, Ur Squamous Epith Cells 3-5, Urine Bacteria 1+ 10/25/21 20:15: SARS-CoV-2 (PCR) Not detected, Influenza A Untype (PCR) Not detected, Influenza Type B (PCR) Not detected 10/25/21 20:48: PT 11.2, INR 0.99 I & O for Last 24 hours: Intake & Output 10/23/21 10/24/21 10/25/21 10/26/21 11:59 11:59 11:59 11:59 Intake Total 1000 / 1000 Balance 1000 / 1000 Weight 131 lb 1.601 oz - Constitutional no acute distress - *Routine Respiratory Exam Absent: respiratory distress - *Routine Cardiovascular Exam Present: RRR - *Routine Abdominal Exam Present: tenderness Results - Labs 10/25/21 18:17 10/25/21 18:17 Laboratory Results - last 24 hr 10/25/21 18:17: WBC 13.7 H, RBC 5.14, Hgb 15.6, Hct 48.5 H, MCV 94.3, MCH 30.4, MCHC 32.2, RDW 13.1, Plt Count 330, MPV 8.3, Neut % (Auto) 75.6, Lymph % (Auto) 16.3, [place] % (Auto) 5.1, Eos % (Auto) 1.0, Baso % (Auto) 1.9, Neut # (Auto) 10.4 H, Lymph # (Auto) 2.3, [place] # (Auto) 0.7, Eos # (Auto) 0.1, Baso # (Auto) 0.3 H 10/25/21 18:17: PT 11.1, INR 0.98, APTT 24.3 10/25/21 18:17: Sodium 137, Potassium 3.7, Chloride 103, Car
[2021-10-26 06:51] LABS: Chloride 110 mmol/L (98-107); Potassium 3.8 mmoL/L (3.5-5.1); Sodium 138 mmol/L (136-145)
[2021-10-26 06:54] LABS: Amylase 102 U/L (30-110); Anion Gap 10.8 mEq/L (5-15); Blood Urea Nitrogen 11 mg/dl (7-17); Calcium 8.3 mg/dl (8.4-10.2); Carbon Dioxide 21 mmol/L (22.0-30.0); Creatinine Clearance Estimated 48 mL/min (50-200); Estimated Glomerular Filt Rate 62 ml/min (>60); GFR (African American) 74 ML/MIN (>60); Glucose 102 mg/dl (74-100); HDL Cholesterol 49 mg/dl (40-60); Lipase 77 U/L (23-300)
[2021-10-26 06:55] LABS: Chol/HDL Ratio 3.1 (1-3.5); Cholesterol 152 mg/dl (140-200); Triglycerides 93 mg/dl (30-150); VLDL Cholesterol 19 mg/dL (0-40)
[2021-10-26 07:06] LABS: Direct LDL Cholesterol 87.11 mg/dL (100-129); Hemoglobin 13.6 g/dL (12.2-16.2)
[2021-10-26 08:00] VITALS: BP 126/59; PULSE 63; RESP 16; TEMP 36.7; O2SAT 96
--- NOTE | 2021-10-26 08:38 | HMH.HP ---
*Admission Date: 10/25/21 <GeneGe osheaa 10/26/21 09:17> *Chief complaint: Splenic Infarct <GeneDayan 10/26/21 09:17> *History of present illness: Mrs. Price is a 71yo white female with history of thyroidectomy in 2016 and kidney stones. She reports being fairly healthy since she was last seen in the office of [facility] in February of 2019. She has had no recent infections or health concerns. She presented to the [facility] ED yesterday evening with complaint of abdominal pain which had started the night before. She described the pain as starting on the left side and progressing to diffuse abdominal pain which was associated with nausea. The pain was constant and she had been unable to get any relief, and so when she began to notice some abdominal distention, she decided to seek evaluation. Upon arrival, bloodwork showed elevated WBC of 13.7. BUN and Creatinine were normal with EGFR of 55. Amylase was mildly elevated at 115 and Lipase was normal. UA showed 1+ blood, 2+ leuks, and was positive for nitrates. There were no acute findings on CXR. CT of the abdomen and pelvis with contrast showed: wedge-shaped hypodensity involving the mid spleen compatible with splenic infarction with serpiginous hyperdensity near the hilum which which is favored to represent opacified vessels over active extravasation; small hiatal hernia with potential wall thickening of the lower esophagus which can be seen with infectious or infiltrating processes, consider correlation with direct inspection; and an 18 mm non-obstructing right lower pole renal calcification. She was admitted for further evaluation and management and surgery was consulted. She is currently resting comfortably with and daughter at the bedside. She continues with diffuse abdominal pain which she reports is tolerable with prn pain medication. She remains nauseated although she does not feel any urge to vomit. She is thirsty and would like some water. <Dayan Mills 10/26/21 09:17> [facility] History Medical History: Reports:: Kidney Stones Denies:: Cancer, Diabetes Mellitus Type 1, Diabetes Mellitus Type 2, Internal Pacemaker, MRSA, Seizures <Dayan Mills 10/26/21 09:17> *Have you ever received a pneumonia vaccine?: No <Dayan Mills 10/26/21 09:17> *Have you received a flu vaccine this season?: No <Ge Mills10/26/21 09:17> Other Medical History: Reports: Thyroid Disease. Denies: Blood Transfusion Reaction <GeneDayan - 10/26/21 09:17> Laterality Cases: Left: Arthroscopy Shoulder <GeneDayan - 10/26/21 09:17> Other Surgeries: Yes: Thyroidectomy, Tubal Ligation, Other. No: Pacemaker <Ge Mills10/26/21 09:17> Amputation: No <Ge Mills10/26/21 09:17> Fractures: No <Ge Mills10/26/21 09:17> - *Social History Smoking Status: Current every day smoker <Ge Mills10/26/21 09:17> Tobacco Type: cigarettes <Gene10/26/21 09:17> # Packs/Day (cigarettes): 1 <Ge Mills10/26/21 09:17> Alcohol Intake: never <Ge Mills10/26/21 09:17> Alcohol Intake Frequency:: other <Gene10/26/21 09:17> Substance Use Type: denies use <Gene10/26/21 09:17> *Occupational Status:: retired <Ge Mills10/26/21 09:17> Housing: house <Gene10/26/21 09:17> Household Members: spouse <Ge Mills10/26/21 09:17> *Travel in the last 8 weeks: None <Ge Mills10/26/21 09:17> Family Hx:: No significant family history <Ge Mills10/26/21 09:17> Review of Systems - Constitutional Denies body ache(s), Denies chills, Denies fatigue, Denies fever(s), Denies headache(s) <Dayan Mills 10/26/21 09:17> - Eyes Denies change in vision <Dayan Mills 10/26/21 09:17> - ENT Denies headache(s), Denies nasal congestion, Denies sore throat <Dayan Mills 10/26/21 09:17> - *Cardiovascular Denies chest pain, Denies chest pain with activity, Denies shortness of breath, Denies shortness of breath with activity, Denies generalized swe
--- NOTE | 2021-10-26 10:31 | HMH.PHAINT ---
MEDICATION RECONCILIATION COMPLETE. PATIENT STATES SHE DOES NOT TAKE ANYTHING AT HOME, BUT IS A PATIENT OF DR ZAPATA.
--- NOTE | 2021-10-26 10:32 | P.CONPHA_ITS ---
[facility] Pharmacy VTE Monitoring - Patient Demographics Admission date: 10/25/21 Report Date: 10/26/21 Time: 10:32 Allergies/Adverse Reactions: Patient Allergies Sulfa (Sulfonamide Antibiotics) Allergy (Unknown, Verified 10/26/21 01:17) Height: 1.55 m Weight: 59.466 kg Patient Problems: Current Active Problems Right ureteral calculus (Acute) Acute UTI (urinary tract infection) (Acute) Infarction of spleen (Acute) Tobacco use (Acute) Abnormal CT scan, esophagus (Acute) Elevated blood pressure reading (Acute) - VTE Risk Labs: VTE Related Lab Results Hgb 13.6 g/dL (12.2-16.2) D 10/26/21 06:04 Hct 42.5 % (37.0-47.0) 10/26/21 06:04 Plt Count 271 K/mm3 (142-424) 10/26/21 06:04 PT 11.2 seconds (10.1-12.5) 10/25/21 20:48 INR 0.99 (0.9-1.1) 10/25/21 20:48 APTT 24.3 seconds (22.8-30.6) 10/25/21 18:17 BUN 11 mg/dl (7-17) D 10/26/21 06:04 Creatinine 0.90 mg/dl (0.52-1.04) 10/26/21 06:04 Estimated Creat Clear 48 mL/min (50-200) 10/26/21 06:04 Was VTE Risk Assessment Performed: Yes VTE Score: 1 VTE Risk Level: Very Low Risk Clinical Trial Participant: No - Prophylaxis VTE Prophylaxis Ordered?: Yes Types of VTE Prophylaxis: TEDS Knee High Location of Applied Device: Bilateral Lower Extremeties
[2021-10-26 16:00] VITALS: BP 146/73; PULSE 68; RESP 18; TEMP 36.7; O2SAT 95
[2021-10-26 20:00] VITALS: BP 113/53; PULSE 78; RESP 16; TEMP 37; O2SAT 95
[2021-10-27 04:00] VITALS: BP 127/51; PULSE 65; RESP 16; TEMP 36.9; O2SAT 96
--- NOTE | 2021-10-27 04:43 | PC.NURSE ---
pt has rested well this shift, has complained of abdominal pain one time this shift and was treated per JAN, has ambulated with standby assist to bathroom, remains on room air with O2 sats 95-96%
[2021-10-27 05:11] VITALS: BMI 25.0
[2021-10-27 06:52] LABS: Basophils # 0.1 K/mm3 (0-0.2); Basophils % 0.7 % (0.1-2.0); Eosinophils # 0.2 K/mm3 (0.0-0.4); Eosinophils % 1.3 % (0.1-12.0); Hematocrit 39.8 % (37.0-47.0); Hemoglobin 12.3 g/dL (12.2-16.2); Lymphocytes # 2.1 K/mm3 (0.7-4.5); Lymphocytes % 15.2 % (10-50); Mean Corpuscular Hemoglobin 30.1 pg (27.0-31.2); Mean Corpuscular Volume 96.9 fl (81-99); Mean Platelet Volume 8.7 fl (7.4-10.4); Monocytes # 0.8 K/mm3 (0.1-1.0); Monocytes % 5.9 % (1.7-9.3); Neutrophils # 10.6 K/mm3 (1.8-7.8); Neutrophils % 76.9 % (37.0-80.0); Platelet Count 265 K/mm3 (142-424); Red Cell Distribution Width 13.2 % (11.5-17.5); White Blood Count 13.8 K/mm3 (4.8-10.8)
[2021-10-27 06:58] LABS: Chloride 112 mmol/L (98-107); Sodium 138 mmol/L (136-145)
[2021-10-27 06:59] LABS: Potassium 3.7 mmoL/L (3.5-5.1)
[2021-10-27 07:01] LABS: Blood Urea Nitrogen 9 mg/dl (7-17); Creatinine Clearance Estimated 48 mL/min (50-200); Estimated Glomerular Filt Rate 62 ml/min (>60); GFR (African American) 74 ML/MIN (>60); Glucose 87 mg/dl (74-100)
[2021-10-27 07:15] LABS: Anion Gap 8.7 mEq/L (5-15); Carbon Dioxide 21 mmol/L (22.0-30.0)
[2021-10-27 08:00] VITALS: BP 119/59; PULSE 66; RESP 18; TEMP 36.6; O2SAT 95
--- NOTE | 2021-10-27 08:27 | HMH.ACPN2 ---
<Marilu Walker - Last Filed: 10/27/21 08:27> Internal Medicine - PN: Subj *Date: 10/27/21 *Time: 08:27 Interval history: Patient states she feels well as long as she has pain medication. When the medicine wears off she begins having pain in her left upper quadrant that radiates across her abdomen to the right. She states she was able to sleep and did eat a small amount of food this morning. Exam Vital signs and Labs for Last 24 Hours: Temp Pulse Resp BP Pulse Ox 98.5 F 65 16 127/51 L 96 10/27/21 04:00 10/27/21 04:00 10/27/21 04:00 10/27/21 04:00 10/27/21 04:00 Laboratory Results - last 24 hr 10/25/21 20:06: Urine Color Yellow, Urine Appearance Sl cloudy, Urine pH 6.0, Ur Specific [place] 1.010, Urine Protein Negative, Urine Glucose (UA) Negative, Urine Ketones Negative, Urine Blood 1+, Urine Nitrate Positive, Urine Bilirubin Negative, Urine Urobilinogen 0.2, Ur Leukocyte Esterase 2+ A, Urine RBC 3-5, Urine WBC 5-10, Ur Squamous Epith Cells 3-5, Urine Bacteria 1+ 10/27/21 06:04: WBC 13.8 H, RBC 4.10 L, Hgb 12.3, Hct 39.8, MCV 96.9, MCH 30.1, MCHC 31.0 L, RDW 13.2, Plt Count 265, MPV 8.7, Neut % (Auto) 76.9, Lymph % (Auto) 15.2, [place] % (Auto) 5.9, Eos % (Auto) 1.3, Baso % (Auto) 0.7, Neut # (Auto) 10.6 H, Lymph # (Auto) 2.1, [place] # (Auto) 0.8, Eos # (Auto) 0.2, Baso # (Auto) 0.1 10/27/21 06:04: Sodium 138, Potassium 3.7, Chloride 112 H, Carbon Dioxide 21 L, Anion Gap 8.7, BUN 9, Creatinine 0.90, Estimated Creat Clear 48, Estimated GFR 62, Est GFR ( Amer) 74, Glucose 87, Calcium 8.0 L I & O for Last 24 hours: Intake & Output 10/24/21 10/25/21 10/26/21 10/27/21 11:59 11:59 11:59 11:59 Intake Total 1000 / 1000 931 / 931 Balance 1000 / 1000 931 / 931 Weight 131 lb 1.601 oz 132 lb 3.2 oz Microbiology Reports for the Last 24 Hours: Microbiology 10/25/21 20:06 Urine,Clean Catch Urine Culture - Preliminary Gram Negative Rods - Constitutional no acute distress - *Routine Respiratory Exam Present: CTA bilaterally - *Routine Cardiovascular Exam Present: RRR - *Routine Abdominal Exam Present: soft, normoactive bowel sounds, tenderness (Left upper quadrant) - *Routine Extremities Exam Absent: cyanosis ( left upper quadrant), clubbing, edema - *Routine Skin Exam Present: warm. Absent: rash - *Routine Neurological Exam Present: alert, oriented X3 Assessment and Plan (1) Infarction of spleen Status: Acute Category: Medical Code(s): D73.5 - Infarction of spleen (2) Acute UTI (urinary tract infection) Status: Acute Category: Medical Code(s): N39.0 - Urinary tract infection, site not specified (3) Elevated blood pressure reading Status: Acute Category: Medical Code(s): R03.0 - Elevated blood-pressure reading, without diagnosis of hypertension (4) Right ureteral calculus Status: Acute Category: Medical Code(s): N20.1 - Calculus of ureter (5) Abnormal CT scan, esophagus Status: Acute Category: Medical Code(s): R93.3 - Abnormal findings on diagnostic imaging of other parts of digestive tract - Assessment and plan all Dx Assessment and Plan for all problems:: Still awaiting urine culture results. We will continue IV antibiotics. Venous Dopplers were negative and echo showed an EF of 55% with trace mitral and tricuspid regurgitation. Will discuss further care with Dr. Anton. <Arvind Anton - Last Filed: 10/27/21 08:47> Internal Medicine - PN: Subj *Date: 10/27/21 *Time: 08:46 Exam Vital signs and Labs for Last 24 Hours: Temp Pulse Resp BP Pulse Ox 98.5 F 65 16 127/51 L 96 10/27/21 04:00 10/27/21 04:00 10/27/21 04:00 10/27/21 04:00 10/27/21 04:00 Laboratory Results - last 24 hr 10/25/21 20:06: Urine Color Yellow, Urine Appearance Sl cloudy, Urine pH 6.0, Ur Specific [place] 1.010, Urine Protein Negative, Urine Glucose (UA) Negative, Urine Ketones Negative, Urine Blood 1+, Urine
[2021-10-27 08:29] LABS: Homocyst(e)ine 15.8 umol/L (0.0-19.2)
--- NOTE | 2021-10-27 09:32 | P.PN_ITS ---
Subjective Patient reports: no new complaints, feels better Progress Note: A&P (1) Infarction of spleen Status: Acute Assessment and plan: She states that she feels better and is expecting to be discharged today. She plans to follow-up with her primary care provider. Hypercoagulable work-up pending Decision with regard to anticoagulation as per primary service (2) Acute UTI (urinary tract infection) Status: Acute (3) Elevated blood pressure reading Status: Acute (4) Right ureteral calculus Status: Acute (5) Abnormal CT scan, esophagus Status: Acute Exam Vital signs and Labs for Last 24 Hours: Temp Pulse Resp BP Pulse Ox 98.5 F 65 16 127/51 L 96 10/27/21 04:00 10/27/21 04:00 10/27/21 04:00 10/27/21 04:00 10/27/21 04:00 Laboratory Results - last 24 hr 10/25/21 20:06: Urine Color Yellow, Urine Appearance Sl cloudy, Urine pH 6.0, Ur Specific [place] 1.010, Urine Protein Negative, Urine Glucose (UA) Negative, Urine Ketones Negative, Urine Blood 1+, Urine Nitrate Positive, Urine Bilirubin Negative, Urine Urobilinogen 0.2, Ur Leukocyte Esterase 2+ A, Urine RBC 3-5, Urine WBC 5-10, Ur Squamous Epith Cells 3-5, Urine Bacteria 1+ 10/25/21 20:43: Homocysteine 15.8 10/27/21 06:04: WBC 13.8 H, RBC 4.10 L, Hgb 12.3, Hct 39.8, MCV 96.9, MCH 30.1, MCHC 31.0 L, RDW 13.2, Plt Count 265, MPV 8.7, Neut % (Auto) 76.9, Lymph % (Auto) 15.2, [place] % (Auto) 5.9, Eos % (Auto) 1.3, Baso % (Auto) 0.7, Neut # (Auto) 10.6 H, Lymph # (Auto) 2.1, [place] # (Auto) 0.8, Eos # (Auto) 0.2, Baso # (Auto) 0.1 10/27/21 06:04: Sodium 138, Potassium 3.7, Chloride 112 H, Carbon Dioxide 21 L, Anion Gap 8.7, BUN 9, Creatinine 0.90, Estimated Creat Clear 48, Estimated GFR 62, Est GFR ( Amer) 74, Glucose 87, Calcium 8.0 L I & O for Last 24 hours: Intake & Output 10/24/21 10/25/21 10/26/21 10/27/21 11:59 11:59 11:59 11:59 Intake Total 1000 / 1000 931 / 931 Balance 1000 / 1000 931 / 931 Weight 131 lb 1.601 oz 132 lb 3.2 oz Microbiology Reports for the Last 24 Hours: Microbiology 10/25/21 20:06 Urine,Clean Catch Urine Culture - Preliminary Gram Negative Rods - Constitutional no acute distress - *Routine Respiratory Exam Absent: respiratory distress - *Routine Cardiovascular Exam Absent: tachycardia - *Routine Abdominal Exam Present: soft, tenderness
[2021-10-28 05:07] LABS: Anti-Thrombin III Antigen 81 % (72-124); Antithrombin Activity 93 % (75-135); Factor VIII Activity 188 % (56-140); Protein C Functional 114 % (73-180); Protein S, Free 93 % (61-136); Protein S, Total 86 % (60-150); Protein S-Functional 75 % (63-140)
--- NOTE | 2021-11-01 22:01 | HMH.DCSUM ---
General - General Admission date:: 10/25/21 Discharge date: 10/27/21 HPI HPI: Mrs. Price is a 71yo white female with history of thyroidectomy in 2016 and kidney stones. She reports being fairly healthy since she was last seen in the office of [facility] in February of 2019. She has had no recent infections or health concerns. She presented to the [facility] ED yesterday evening with complaint of abdominal pain which had started the night before. She described the pain as starting on the left side and progressing to diffuse abdominal pain which was associated with nausea. The pain was constant and she had been unable to get any relief, and so when she began to notice some abdominal distention, she decided to seek evaluation. Upon arrival, bloodwork showed elevated WBC of 13.7. BUN and Creatinine were normal with EGFR of 55. Amylase was mildly elevated at 115 and Lipase was normal. UA showed 1+ blood, 2+ leuks, and was positive for nitrates. There were no acute findings on CXR. CT of the abdomen and pelvis with contrast showed: wedge-shaped hypodensity involving the mid spleen compatible with splenic infarction with serpiginous hyperdensity near the hilum which which is favored to represent opacified vessels over active extravasation; small hiatal hernia with potential wall thickening of the lower esophagus which can be seen with infectious or infiltrating processes, consider correlation with direct inspection; and an 18 mm non-obstructing right lower pole renal calcification. She was admitted for further evaluation and management and surgery was consulted. She is currently resting comfortably with and daughter at the bedside. She continues with diffuse abdominal pain which she reports is tolerable with prn pain medication. She remains nauseated although she does not feel any urge to vomit. She is thirsty and would like some water. Hospital Course Hospital Course: There was no clear etiology for her splenic infarct. An echo and venous Dopplers were both ordered. She was started on Rocephin for UTI and oral pain medication. Surgery was consulted and she was seen by Dr. Torres. He recommended doing a hypercoagulable work-up, but did not feel any need for acute surgical intervention. He felt she may require radiographic drainage if she developed an abscess. The patient did well as long as she had pain medication. She was able to rest and eat. Her venous Dopplers were negative and her echo showed an EF of 55% with trace mitral and tricuspid regurgitation. She was stable to be discharged home on oral antibiotics, a daily aspirin, and Balm for pain control. She will follow-up in the office in 2 weeks. Of note, her urine grew out E. coli which was sensitive to cephalosporins. Her hypercoagulable work-up did reveal an elevated factor VIII activity level but was otherwise negative. Objective Vital signs: Temp Pulse Resp BP Pulse Ox 98 F 66 18 119/59 L 95 10/27/21 08:00 10/27/21 08:00 10/27/21 08:00 10/27/21 08:00 10/27/21 08:00 Narrative: - Constitutional no acute distress - *Routine Respiratory Exam Present: CTA bilaterally - *Routine Cardiovascular Exam Present: RRR - *Routine Abdominal Exam Present: soft, normoactive bowel sounds, tenderness (Left upper quadrant) - *Routine Extremities Exam Absent: cyanosis ( left upper quadrant), clubbing, edema - *Routine Skin Exam Present: warm. Absent: rash - *Routine Neurological Exam Present: alert, oriented X3 Results Labs on day of discharge: Labs from last 24 hours 10/25/21 20:43 Factor V Leiden Interp Comment DS: Diagnosis - Discharge Diagnosis (1) Infarction of spleen Status: Acute (2) Acute UTI (urinary tract infection) Status: Acute (3) Elevated blood pressure reading Status: Acute (4) Right ureteral calculus Status: Acute (5) Abnormal CT scan, esophagus Status: Acute Discharge
[2021-11-24 06:26] LABS: Protein C Antigen 97 % (60-150)
== END 2021-10-27 09:37 | disposition home or self-care (01) | DRG 815 ==
LOC: ER 18:14 → 2ND 20:53
PROVIDERS: Emergency Medicine; Admitting Provider Family Medicine; Emergency Provider Emergency Medicine; PCP Family Medicine; Visit Provider Family Medicine
DX: D73.5 Infarction of spleen (principal); N39.0 Urinary tract infection, site not specified; N20.1 Calculus of ureter; Z20.822 Contact with and (suspected) exposure to COVID-19; F17.210 Nicotine dependence, cigarettes, uncomplicated; Z87.442 Personal history of urinary calculi; R93.3 Abnormal findings on diagnostic imaging of other parts of digestive tract
CPT/HCPCS: 36415; 71045; 74177; 80048; 80053; 80061; 81001; 81241; 82150; 83090; 83605; 83690; 85025; 85240; 85300; 85301; 85302; 85305; 85306; 85610; 85730; 86148; 87086; 87088; 87186; 93005; 93306; 93970; 96365; 96375; 99284; C9803; J2405; Q9967; U0003; U0005

== ENCOUNTER → 2021-11-15 10:37 | Outpatient (CLI) | payer MEDICARE, SELFPAY ==
--- NOTE | 2021-11-15 10:51 | US_ITS ---
FINAL REPORT CLINICAL HISTORY: SPLENIC INFARCT COMPARISON: CT dated October 25, 2021 FINDINGS: Ultrasound images of the left upper quadrant were obtained. The left kidney measures 9.6 cm in length. There is an hypoechoic area in the mid spleen measuring 3.8 x 3.2 cm worrisome for an infarct. IMPRESSION: 3.8 x 3.2 cm hypoechoic area in the mid spleen worrisome for infarct. Reviewed, Interpreted and Dictated by Matt Chakraborty III, MD Transcribed by Dontrell Emery Authenticated by Matt Chakraborty III, MD on 11/15/2021 01:43:41 PM [facility]
== END ==
PROVIDERS: PCP Family Medicine; Visit Provider Family Medicine
DX: R09.89 Other specified symptoms and signs involving the circulatory and respiratory systems (principal)
CPT/HCPCS: 76705; 93880

== ENCOUNTER → 2021-12-20 12:12 | Outpatient (CLI) | payer MEDICARE, SELFPAY ==
[2021-12-20 17:46] LABS: Anion Gap 16.1 mEq/L (5-15); Blood Urea Nitrogen 17 mg/dl (7-17); Carbon Dioxide 26 mmol/L (22.0-30.0); Chloride 103 mmol/L (98-107); Estimated Glomerular Filt Rate 62 ml/min (>60); GFR (African American) 74 ML/MIN (>60); Glucose 98 mg/dl (74-100); Potassium 4.1 mmoL/L (3.5-5.1); Sodium 141 mmol/L (136-145)
[2021-12-20 17:57] LABS: Basophils # 0.2 K/mm3 (0-0.2); Eosinophils # 0.2 K/mm3 (0.0-0.4); Eosinophils % 1.5 % (0.1-12.0); Hemoglobin 16.6 g/dL (12.2-16.2); Lymphocytes # 3.2 K/mm3 (0.7-4.5); Lymphocytes % 20.4 % (10-50); Mean Corpuscular HGB Conc 33.8 g/dL (31.8-35.4); Mean Corpuscular Hemoglobin 30.6 pg (27.0-31.2); Mean Corpuscular Volume 90.4 fl (81-99); Mean Platelet Volume 7.6 fl (7.4-10.4); Monocytes # 0.7 K/mm3 (0.1-1.0); Monocytes % 4.5 % (1.7-9.3); Neutrophils # 11.5 K/mm3 (1.8-7.8); Neutrophils % 72.7 % (37.0-80.0); Platelet Count 407 K/mm3 (142-424); Red Blood Count 5.42 M/mm3 (4.20-5.40); Red Cell Distribution Width 12.9 % (11.5-17.5); White Blood Count 15.8 K/mm3 (4.8-10.8)
[2021-12-20 18:00] LABS: MANUAL DIFFERENTIAL MANUAL DIFFERENTIAL (MANUAL DIFF)
[2021-12-20 21:23] LABS: Eosinophils % 1 % (0-3); Lymphocytes % 26 % (10-50); Neutrophils % 72 % (42-76); Platelet Estimate Normal; Stomatocytes 1+; Total Cells Counted 100
== END ==
PROVIDERS: Internal Medicine Cardiovascular Disease; PCP Family Medicine; Visit Provider Internal Medicine
DX: D73.5 Infarction of spleen (principal); I34.0 Nonrheumatic mitral (valve) insufficiency; I74.9 Embolism and thrombosis of unspecified artery; R94.31 Abnormal electrocardiogram [ECG] [EKG]; Z72.0 Tobacco use; Z01.812 Encounter for preprocedural laboratory examination; Z11.52 Encounter for screening for COVID-19
CPT/HCPCS: 80048; 85007; 85025; C9803; U0003; U0005

== ENCOUNTER 2021-12-22 07:19 | Day surgery (SDC) | payer MEDICARE, SELFPAY ==
[2021-12-22] VITALS (7 sets, daily range): BP systolic 95–173; BP diastolic 53–103; PULSE 50–83; RESP 18–19; O2SAT 92–96; BMI 24.5
--- NOTE | 2021-12-22 07:25 | CA_ITS ---
APPROVED REPORT EXAM: Comprehensive 2D, Doppler, and color-flow Echocardiogram Strip Picker: RT Dinora(R) Ht: 5 ft 1 in Wt: 130lbs BSA: 1.57 BP: 140/86 mmHg Indications: splenic infarct, smoker, abn EKG Procedure After obtaining informed consent, patient underwent transesophageal echo in the [facility]. Type of Sedation : Conscious Sedation Sedation was administered by Bryce Cartwright C.R.N.A. Transesophageal probe was inserted and advanced into esophagus without difficulty by Dr. Milagros Mario. The MARILYN was performed without complications. Throughout the procedure, the blood pressure, pulse oximetry, cardiac rhythm, and rate were monitored. The patient tolerated the procedure without adverse effects. Recovery from conscious sedation was uneventful and vital signs were stable. Left Ventricle Left ventricle is normal size, visually estimated ejection fraction 55% in the obtained views. Right Ventricle Right ventricle is mildly enlarged with normal contractility. Atria Left atrium is mildly enlarged, left atrial appendage free of thrombus. There is poor appendage flow by spectral Doppler. Agitated saline contrast study did not identify intracardiac shunt. Right atrium is mildly enlarged. Intra-atrial septum is intact Aortic Valve Aortic valve is minimally thickened and fibrosed, there is no aortic stenosis or aortic insufficiency Mitral Valve Mitral valve grossly normal, there is mild mitral regurgitation. Pulmonary vein Doppler is normal. Tricuspid Valve Tricuspid valve is grossly normal, there is mild tricuspid regurgitation. Pulmonic Valve Pulmonic valve is grossly normal, there is trace pulmonic insufficiency. Great Vessels Aortic root is normal size. Ascending, arch and descending thoracic aorta there is no aneurysm or dissection, nonmobile atheromatous plaque seen in the descending thoracic aorta. Inferior vena cava is poorly visualized. Pericardium No significant pericardial effusion noted. Conclusion 1. Normal left ventricular size preserved left ventricular systolic function, visually estimated ejection fraction 55% with no obvious regional wall motion abnormality. 2. Agitated saline contrast study did not identify intracardiac shunt. 3. Mild mitral and tricuspid regurgitation. 4. No significant pericardial effusion noted. 5. Nonmobile atheromatous plaque seen in the descending thoracic aorta. 6. Mildly enlarged right ventricle with normal contractility. Electronically signed by : Anuj Sorto MD 12/22/2021 10:43:55
--- NOTE | 2021-12-22 08:59 | SUR.PHASEII ---
see loop chart for post procedure charting
--- NOTE | 2021-12-22 09:28 | P.PCN_ITS ---
[facility] Loop Recorder Date: 12/22/21 Time: 09:30 Procedure Performed:: Implantation of loop recorder Indication:: History of splenic infarct Evaluate for atrial fibrillation Palpitations Technique:: Patient was brought to the cardiac Change Release Manager. After informed consent obtained, 1% lidocaine with epinephrine was used to anesthetize the site along the left anterior aspect of the chest near the sternal border. Using the preformed scalpel, an incision was made and using the supplied preloaded apparatus, the loop recorder was placed subcutaneously without difficulty. Following the deployment of the loop recorder interrogation of the device was performed to ensure appropriate voltage was being detected (0.19 mV). Once this was verified, Steri-Strips were placed over the incision and the patient was prepped to discharge home. Patient tolerated the procedure well with minimal discomfort. Impression:: Successful implantation of loop recorder Serial Number:: [employer]ous [id number] Serial #[id number] Plan:: Routine postop care
--- NOTE | 2021-12-22 11:48 | P.PN_ITS ---
[facility] Anesthesia Checklist - Patient Identification Patient Identification: Arm Band, Verbal (Name & ) - Structural Data Admitted From: Home Planned Operative Procedure/s: MARILYN Consent for Planned Operative Procedure(s) Verified: Yes Verified Documents: Surgical Consent - NPO Status Verified Time NPO: 00:00 - Additional verifications Anesthesia Reactions: No Hx Blood Transfusions: No Blood Transfusion Reaction: No - Airway Assessment C-Spine Mobility Assessed: Yes TMJ Mobility Assessed: Yes Dentition: Partials - Neurological Assessment Level of Consciousness: Awake, Alert, Appropriate - Anesthesia Plan Anesthesia Risk discussed: Yes ASA Class: III Anesthesia Type: MAC [facility] History I have reviewed the patient's past medical history: Yes Medical History: Reports:: Coronary Artery Disease, Hyperlipidemia, Hypertension, Kidney Stones Denies:: Cancer, Diabetes Mellitus Type 1, Diabetes Mellitus Type 2, Internal Pacemaker, MRSA, Seizures *Have you ever received a pneumonia vaccine?: No *Have you received a flu vaccine this season?: No Other Medical History: Reports: Thyroid Disease. Denies: Blood Transfusion R eaction Anesthesia experience/problems:: none Laterality Cases: Left: Arthroscopy Shoulder Other Surgeries: Yes: Thyroidectomy, Tubal Ligation, Other. No: Pacemaker Amputation: No Fractures: No - *Social History Smoking Status: Current every day smoker Tobacco Type: cigarettes # Packs/Day (cigarettes): 1 Alcohol Intake: never Alcohol Intake Frequency:: other Substance Use Type: denies use *Occupational Status:: retired Housing: house Household Members: spouse *Travel in the last 8 weeks: None Family Hx:: Diabetes, Stroke
== END 2021-12-22 10:28 | disposition home or self-care (01) ==
LOC: CATHLAB 07:20
PROVIDERS: Internal Medicine; PCP Family Medicine; Visit Provider Internal Medicine Cardiovascular Disease
DX: D73.5 Infarction of spleen (principal); E78.5 Hyperlipidemia, unspecified; I34.0 Nonrheumatic mitral (valve) insufficiency; R94.31 Abnormal electrocardiogram [ECG] [EKG]; F17.210 Nicotine dependence, cigarettes, uncomplicated; Z79.899 Other long term (current) drug therapy
CPT/HCPCS: 33285; 93312; J2704

== ENCOUNTER → 2022-07-04 09:00 | Outpatient (CLI) | payer MEDICARE, SELFPAY ==
[2022-07-04 10:03] LABS: Basophils # 0.1 K/mm3 (0-0.2); Basophils % 1.1 % (0.1-2.0); Eosinophils # 0.3 K/mm3 (0.0-0.4); Eosinophils % 2.8 % (0.1-12.0); Hematocrit 48.6 % (37.0-47.0); Hemoglobin 14.7 g/dL (12.2-16.2); Lymphocytes # 3.2 K/mm3 (0.7-4.5); Lymphocytes % 30.9 % (10-50); Mean Corpuscular HGB Conc 30.4 g/dL (31.8-35.4); Mean Corpuscular Hemoglobin 29.1 pg (27.0-31.2); Mean Corpuscular Volume 95.7 fl (81-99); Mean Platelet Volume 8.2 fl (7.4-10.4); Monocytes # 0.5 K/mm3 (0.1-1.0); Monocytes % 4.5 % (1.7-9.3); Neutrophils # 6.3 K/mm3 (1.8-7.8); Neutrophils % 60.6 % (37.0-80.0); Platelet Count 353 K/mm3 (142-424); Red Blood Count 5.08 M/mm3 (4.20-5.40); Red Cell Distribution Width 13.4 % (11.5-17.5); White Blood Count 10.4 K/mm3 (4.8-10.8)
[2022-07-04 11:34] LABS: Thyroid Stimulating Hormone 3.73 uIU/mL (0.465-4.68)
[2022-07-04 12:50] LABS: Albumin Level 4.2 g/dl (3.5-5.0); Alkaline Phosphatase 112 U/L (38-126); Anion Gap 11.6 mEq/L (5-15); Aspartate Amino Transferase 30 U/L (14-36); Bilirubin,Direct 0.3 mg/dl (0.0-0.4); Bilirubin,Indirect 0.3 mg/dL (0.0-0.9); Bilirubin,Total 0.6 mg/dl (0.2-1.3); Bilirubin,Unconjugated 0.3 mg/dL (0.0-1.1); Blood Urea Nitrogen 16 mg/dl (7-17); Calcium 9.6 mg/dl (8.4-10.2); Carbon Dioxide 26 mmol/L (22.0-30.0); Chloride 107 mmol/L (98-107); Chol/HDL Ratio 2.5 (1-3.5); Cholesterol 138 mg/dl (140-200); Estimated Glomerular Filt Rate 54 ml/min (>60); GFR (African American) 66 ML/MIN (>60); Glucose 92 mg/dl (74-100); HDL Cholesterol 55 mg/dl (40-60); Potassium 4.6 mmoL/L (3.5-5.1); Sodium 140 mmol/L (136-145); Total Protein,Serum 7.1 g/dl (6.3-8.2); Triglycerides 149 mg/dl (30-150); VLDL Cholesterol 30 mg/dL (0-40)
[2022-07-04 13:04] LABS: Alanine Aminotransferase 20 U/L (12-78)
[2022-07-04 13:05] LABS: Free T4 (Free Thyroxine) 1.14 ng/dl (0.78-2.19)
[2022-07-05 09:02] LABS: Direct LDL Cholesterol 54 mg/dL (100-129)
== END ==
PROVIDERS: PCP Family Medicine; Visit Provider Physician Assistant
DX: D73.5 Infarction of spleen (principal); R06.00 Dyspnea, unspecified; Z72.0 Tobacco use; Z95.818 Presence of other cardiac implants and grafts; I11.9 Hypertensive heart disease without heart failure; E11.9 Type 2 diabetes mellitus without complications; I63.9 Cerebral infarction, unspecified
CPT/HCPCS: 36415; 80048; 80061; 80076; 84439; 84443; 85025

== ENCOUNTER → 2022-07-10 09:19 | Outpatient (CLI) | payer MEDICARE, SELFPAY ==
--- NOTE | 2022-07-10 09:19 | US_ITS ---
FINAL REPORT CLINICAL HISTORY: hx of partial thyroidectomy COMPARISON: April 29, 2017 FINDINGS: THYROID ULTRASOUND There is a small right thyroid consistent with history of partial right thyroidectomy. The left lobe of the thyroid is somewhat enlarged with a heterogeneous echotexture and measures 4.3 x 2.5 x 1.9 cm. There is an 8 x 7 x 5 mm solid, hypoechoic TI-RADS 4 nodule in the left lobe of the thyroid. There is a 16 x 14 x 13 mm solid, isoechoic TI-RADS 3 poorly marginated nodule in the left lobe of the thyroid. Direct comparison to the prior exam is difficult but findings appear stable. IMPRESSION: Partial right thyroidectomy. Somewhat enlarged left thyroid with 2 nodules as described. Findings are stable as compared to prior. Recommend follow-up ultrasound in 12 months. Reviewed, Interpreted and Dictated by Matt Chakraborty III, MD Transcribed by Dontrell Emery Authenticated and [facility]
== END ==
PROVIDERS: PCP Family Medicine; Visit Provider Physician Assistant
DX: E89.0 Postprocedural hypothyroidism (principal)
CPT/HCPCS: 76536

== ENCOUNTER 2022-09-09 13:08 | Emergency (ER) | payer MEDICARE, SELFPAY ==
[2022-09-09] VITALS (20 sets, daily range): BP systolic 104–173; BP diastolic 44–88; PULSE 43–96; RESP 15–20; TEMP 36.8–37.2; O2SAT 96–100; BMI 25.4
--- NOTE | 2022-09-09 13:31 | CT_ITS ---
PROCEDURE INFORMATION: Exam: CT Abdomen And Pelvis Without Contrast Exam date and time: 09/09/2022 2:36 PM Age: 72 years old Clinical indication: Abdominal pain; Flank; Right upper quadrant (ruq); Additional info: Concern for nephrolitiasis TECHNIQUE: Imaging protocol: Computed tomography of the abdomen and pelvis without contrast. Radiation optimization: All CT scans at this facility use at least one of these dose optimization techniques: automated exposure control; mA and/or kV adjustment per patient size (includes targeted exams where dose is matched to clinical indication); or iterative reconstruction. COMPARISON: CT ABDOMEN PELVIS W CON 10/25/2021 7:11 PM FINDINGS: Lungs: Visualized portions of the lung bases are normal. Liver: Normal. No mass. Gallbladder and bile ducts: Normal. No calcified stones. No ductal dilation. Pancreas: Normal. No ductal dilation. Spleen: Normal. No splenomegaly. Adrenal glands: Normal. No mass. Kidneys and ureters: Large staghorn calcification within the distended renal pelvis on the right measuring nearly 10 mm. Hydronephrosis related to 2 calcifications proximal right ureter measuring approximately 7 mm and 7 mm. Probable cortical cyst left kidney posteriorly. Stomach and bowel: Moderate amount stool within the large bowel. Appendix: Appendix normal. Intraperitoneal space: No acute intra-abdominal process. No inflammatory process. No obstruction. No free fluid within the pelvis or within the dependent portions of the peritoneum. Vasculature: Unremarkable. No abdominal aortic aneurysm. Lymph nodes: Unremarkable. No enlarged lymph nodes. Urinary bladder: Unremarkable as visualized. Reproductive: Unremarkable as visualized. Bones/joints: Osseous structures are unremarkable. No fracture. Soft tissues: Unremarkable. IMPRESSION: 1. Large staghorn calcification within the distended renal pelvis on the right measuring nearly 10 mm. Hydronephrosis related to 2 calcifications proximal right ureter measuring approximately 7 mm and 7 mm. 2. No acute intra-abdominal process. No inflammatory process. No obstruction. 3. No free fluid within the pelvis or within the dependent portions of the peritoneum. 4. Moderate amount stool within the large bowel. 5. Appendix normal. COMMENTS: Consistent with the [employer]'s Incidental Findings Committee white paper (J Am Keo Radiol 2018): Any incidental renal lesion less than 1 cm or classified as too small to characterize, or any incidental cystic renal lesion characterized as simple-appearing, is likely benign. No follow-up imaging is recommended for these lesions per consensus recommendations based on imaging criteria.
--- NOTE | 2022-09-09 13:32 | HMH.EDGENADL ---
Discharge Plan Disposition Patient Disposition: Xfer Short-Term Hosp Prescriptions Prescriptions: No Action clopidogrel 75 mg tablet 75 mg PO DAILY rosuvastatin 20 mg tablet 20 mg PO DAILY coenzyme Q10 [Co Q-10] 200 mg capsule 200 mg PO DAILY aspirin [Adult Low Dose Aspirin] 81 mg tablet,delayed release (DR/EC) 81 mg PO DAILY Qty: 30 2RF Referrals Follow up/Referrals: Brooklynn Torres MD [Primary Care Provider] - See instructions Clinical Impressions Clinical Impression: Right ureteral calculus, Pyelonephritis Stand Alone Forms Stand Alone Forms: Transfer Record - ED Discharge ED Provider: Arian Ragland General Adult HPI General Chief complaint: PAIN Stated complaint: Right side pain Time Seen by Provider: 09/09/22 13:15 Mode of Arrival: Ambulatory Source of Information: Patient Limitations: No Limitations Description of Symptoms (Recalled from ER Triage Doc. by RN): c/o right side pain with nausea that started yesterday History of Present Illness HPI narrative: Patient is a 72-year-old female with past medical history of nephrolithiasis who presents with concern for right-sided flank pain. She says that she has been having a dull pain on the right side for the last few days but says that last night it got substantially worse. She says that it feels now like a stabbing pain. She denies any hematuria. Denies any dysuria or frequency. The pain does not radiate from the right side. She says that it is located more in her abdomen as opposed to her back like it was during her previous kidney stones. She says that she does feel little bit nauseous. Denies any vomiting. Denies any constipation or diarrhea. Related Data Home Medications Medication Instructions Recorded Confirmed clopidogrel 75 mg tablet 75 mg PO DAILY 12/11/21 07/03/22 coenzyme Q10 200 mg capsule (Co 200 mg PO DAILY 12/11/21 07/03/22 Q-10) rosuvastatin 20 mg tablet 20 mg PO DAILY 12/11/21 07/03/22 Previous Rx's Medication Instructions Recorded aspirin 81 mg tablet,delayed 81 mg PO DAILY #30 tabs 12/11/21 release (Adult Low Dose Aspirin) Allergies Allergy/AdvReac Type Severity Reaction Status Date / Time Sulfa (Sulfonamide Allergy Unknown Verified 07/03/22 11:26 Antibiotics) [facility] Medical History Abnormal electrocardiography Mitral regurgitation Family History Other No significant family history Social History (Updated 07/03/22 @ 12:15 by LUCY Dos Santos) Smoking Status: Current every day smoker tobacco type: cigarettes packs per day: 1 second hand exposure: Yes alcohol intake: never counseling provided: none substance use type: denies use current occupational status: retired Travel in the last 8 weeks: Inside the [place] household members: spouse housing: house current occupational exposures/hazards: No caffeine: No ROS Obtained: Yes All systems reviewed & no additional complaints except as documented A 14 point review of system was obtained otherwise negative except per HPI Physical Exam General General appearance: alert and in no apparent distress Head Head exam: atraumatic, normocephalic and normal inspection Eye Eye exam: Present normal appearance, PERRL and EOMI ENT ENT exam: Present normal exam, normal oropharynx, mucous membranes moist, TM's normal bilaterally and normal external ear exam Neck Neck exam: Present normal inspection, full ROM and trachea midline; Absent meningismus or lymphadenopathy Chest Chest inspection: Present normal inspection and symmetric chest wall rise; Absent tenderness Respiratory Respiratory exam: Present normal lung sounds bilaterally; Absent respiratory distress Cardiovascular Cardiovascular exam: Present regular rate and normal rhythm; Absent JVD Abdominal Exam Abdominal exam: Present soft and
--- NOTE | 2022-09-09 13:54 | PC.NURSE ---
Anabela Pacheco RN called rad for them to powershare the images to [facility] of pt's CT
[2022-09-09 14:04] LABS: Basophils # 0.1 K/mm3 (0-0.2); Basophils % 1.3 % (0.1-2.0); Eosinophils # 0.3 K/mm3 (0.0-0.4); Eosinophils % 2.8 % (0.1-12.0); Hematocrit 46.4 % (37.0-47.0); Hemoglobin 14.8 g/dL (12.2-16.2); Lymphocytes # 2.6 K/mm3 (0.7-4.5); Lymphocytes % 26.5 % (10-50); Mean Corpuscular Hemoglobin 29.4 pg (27.0-31.2); Mean Corpuscular Volume 92.1 fl (81-99); Mean Platelet Volume 7.9 fl (7.4-10.4); Monocytes # 0.6 K/mm3 (0.1-1.0); Monocytes % 5.6 % (1.7-9.3); Neutrophils # 6.3 K/mm3 (1.8-7.8); Neutrophils % 63.7 % (37.0-80.0); Platelet Count 353 K/mm3 (142-424); Red Blood Count 5.04 M/mm3 (4.20-5.40); Red Cell Distribution Width 13.4 % (11.5-17.5); White Blood Count 9.9 K/mm3 (4.8-10.8)
[2022-09-09 14:09] LABS: Chloride 105 mmol/L (98-107); Sodium 142 mmol/L (136-145)
[2022-09-09 14:10] LABS: Potassium 4.2 mmoL/L (3.5-5.1)
[2022-09-09 14:11] LABS: Microscopic, Urine URINE MICROSCOPIC (MICROSCOPIC)
[2022-09-09 14:12] LABS: Alanine Aminotransferase 12 U/L (12-78); Albumin Level 4.4 g/dl (3.5-5.0); Albumin/Globulin Ratio 1.3 (1.1-1.8); Alkaline Phosphatase 116 U/L (38-126); Anion Gap 15.2 mEq/L (5-15); Aspartate Amino Transferase 26 U/L (14-36); Bilirubin,Total 0.7 mg/dl (0.2-1.3); Blood Urea Nitrogen 20 mg/dl (7-17); Calcium 9.5 mg/dl (8.4-10.2); Carbon Dioxide 26 mmol/L (22.0-30.0); Creatinine Clearance Estimated 48 mL/min (50-200); Estimated Glomerular Filt Rate 54 ml/min (>60); GFR (African American) 66 ML/MIN (>60); Globulin 3.3 g/dL (1.3-3.2); Glucose 90 mg/dl (74-100); Lipase 66 U/L (23-300); Total Protein,Serum 7.7 g/dl (6.3-8.2)
[2022-09-09 14:15] LABS: Bilirubin,Urine Negative (Negative); Blood, Urine 2+ (Negative); Color,Urine YELLOW (Yellow); Glucose,Urine (UA) Negative (Negative); Ketones,Urine Negative (Negative); Leukocyte Esterase,Urine 3+ (Negative); Nitrate,Urine POSITIVE (Negative); Protein,Urine 1+ (Negative); Specific Gravity, Urine 1.025 (1.005-1.030); Urobilinogen,Urine 0.2 EU/dl (0.2)
[2022-09-09 14:16] LABS: Appearance,Urine Cloudy (Clear)
[2022-09-09 14:27] LABS: Bacteria,Urine 4+ /lpf; Squamous Epithelial Cell,Urine Occasional #/hpf (0-5)
--- NOTE | 2022-09-09 14:44 | PC.NURSE ---
call out to [facility] to speak with urology. [facility] reports they will call back
--- NOTE | 2022-09-09 14:51 | PC.NURSE ---
[facility] returned call, speaking with SHERWIN at this time.
--- NOTE | 2022-09-09 15:01 | PC.NURSE ---
[facility] HERN[facility]NDEZ spoke with , they are requesting a cath urine specimen and for a return call with results.
[2022-09-09 16:26] LABS: Microscopic, Urine URINE MICROSCOPIC (MICROSCOPIC)
[2022-09-09 16:34] LABS: Appearance,Urine SL CLOUDY (Clear); Bilirubin,Urine Negative (Negative); Blood, Urine 2+ (Negative); Color,Urine YELLOW (Yellow); Glucose,Urine (UA) Negative (Negative); Ketones,Urine Negative (Negative); Leukocyte Esterase,Urine 2+ (Negative); Nitrate,Urine POSITIVE (Negative); PH,Urine 5.5 (5.0-8.5); Protein,Urine 2+ (Negative); Specific Gravity, Urine >= 1.030 (1.005-1.030); Urobilinogen,Urine 0.2 EU/dl (0.2)
[2022-09-09 16:47] LABS: Bacteria,Urine 4+ /lpf; WBC,Urine 20-50 #/hpf (0-3)
--- NOTE | 2022-09-09 18:24 | PC.NURSE ---
contacted lab to see about 3rd repeat urine specimen for pt.
[2022-09-09 18:31] LABS: Microscopic, Urine URINE MICROSCOPIC (MICROSCOPIC)
[2022-09-09 18:46] LABS: Appearance,Urine CLEAR (Clear); Bilirubin,Urine Negative (Negative); Blood, Urine 2+ (Negative); Color,Urine YELLOW (Yellow); Glucose,Urine (UA) Negative (Negative); Ketones,Urine TRACE (Negative); Leukocyte Esterase,Urine 3+ (Negative); Nitrate,Urine POSITIVE (Negative); Protein,Urine TRACE (Negative); Urobilinogen,Urine 0.2 EU/dl (0.2)
--- NOTE | 2022-09-09 19:15 | PC.NURSE ---
Was informed during report that [facility] advised they are on divert at this time
--- NOTE | 2022-09-09 19:34 | PC.NURSE ---
Waiting for call back from Dr. Elkins with [facility]
--- NOTE | 2022-09-09 19:51 | PC.NURSE ---
[facility] advised that had no beds available at this time but would page urology and give us a call back
--- NOTE | 2022-09-09 19:53 | PC.NURSE ---
Spoke with [facility]. Was advised they would give us a call back when they have the hospitalist on the line but the only availability would be [facility].
--- NOTE | 2022-09-09 20:12 | PC.NURSE ---
Dr. Ragland speaking with Dr. Elkins with [facility]
--- NOTE | 2022-09-09 20:24 | PC.NURSE ---
Dr. Ragland speaking with Aliyah, PIPE ASSEMBLY WORKER with [facility]
--- NOTE | 2022-09-09 20:28 | PC.NURSE ---
Pt accepted at [facility] by hospitalist. Waiting on return call from urology. Dr. Ragland updating family.
--- NOTE | 2022-09-09 20:42 | PC.NURSE ---
Dr. Ragland speaking with urologist at [facility]
== END 2022-09-09 22:56 | disposition short-term general hospital (02) ==
PROVIDERS: Emergency Provider Student in an Organized Health Care Education/Training Program; PCP Family Medicine
DX: N13.6 Pyonephrosis (principal); R94.31 Abnormal electrocardiogram [ECG] [EKG]; R11.0 Nausea; I34.0 Nonrheumatic mitral (valve) insufficiency; F17.210 Nicotine dependence, cigarettes, uncomplicated; Z79.02 Long term (current) use of antithrombotics/antiplatelets; Z79.82 Long term (current) use of aspirin; Z79.899 Other long term (current) drug therapy; Z88.2 Allergy status to sulfonamides
CPT/HCPCS: 51702; 74176; 80053; 81001; 83690; 85025; 87086; 87088; 87186; 96361; 96374; 96375; 99284; J0696; J2405

== ENCOUNTER 2023-01-29 12:00 | Emergency (ER) | payer MEDICARE, SELFPAY ==
[2023-01-29 12:07] VITALS: BP 131/106; PULSE 59; RESP 18; TEMP 36.8; O2SAT 98; BMI 25.6
--- NOTE | 2023-01-29 12:13 | XR_ITS ---
FINAL REPORT CLINICAL HISTORY: left sided rib pain FINDINGS: 4 views of the left ribs were obtained. There is no acute fracture. The visualized lungs are clear. No pneumothorax is identified. IMPRESSION: No rib fracture or pneumothorax identified. Reviewed, Interpreted and Dictated by Liberty Ivory MD Transcribed by Dontrell Emery Authenticated and [facility]
--- NOTE | 2023-01-29 12:21 | PC.NURSE ---
Called radiology regarding scans not being read; they are going to look for preliminary reports at this time
--- NOTE | 2023-01-29 12:53 | HMH.EDGENADL ---
Discharge Plan Disposition Patient Disposition: Home, Self-Care Condition: Good Prescriptions Prescriptions: New hydrocodone-acetaminophen 5-325 mg tablet 1 tab PO Q6H PRN (Reason: pain) Qty: 14 0RF No Action clopidogrel 75 mg tablet 75 mg PO DAILY rosuvastatin 20 mg tablet 20 mg PO DAILY coenzyme Q10 [Co Q-10] 200 mg capsule 200 mg PO DAILY aspirin [Adult Low Dose Aspirin] 81 mg tablet,delayed release (DR/EC) 81 mg PO DAILY Qty: 30 2RF Referrals Follow up/Referrals: Brooklynn Torres MD [Primary Care Provider] - See instructions Activity Restrictions/Add. Instructions Additional Instructions/Restrictions: [place] as needed for pain. Additional instructions for RIB INJURIES: See your physician as soon as possible for further evaluation. Hold a pillow against your injured ribs to help with pain when coughing or sneezing. Sleep with several pillows to help support you in the most comfortable position. Take deep breaths frequently. Use incentive spirometer 4-5 times a day. Return immediately if shortness of breath, intolerable pain, coughing of blood, abdominal pain or vomiting. Additional instructions for CONTROLLED SUBSTANCES: You have been prescribed a medication that is a controlled substance. Controlled substances include pain medications known as opiates and sedative nerve medications known as benzodiazepines. Tramadol, fioricet, and gabapentin are also controlled substances. Some common opiates include: Codeine (such as Tylenol #3) Hydrocodone (Vicodin, Lortab, Lorcet, [place]) Oxycodone (Percocet, Percodan, Oxycodone, Oxy IR) Some common benzodiazepines include: Diazepam (Valium) Lorazepam (Ativan) Alprazolam (Xanax) Clonazepam (Klonopin) Oxazepam (Serax) All of these controlled substances are highly addictive and frequently abused. Misuse can and frequently does lead to addiction as well as overdose and . Medication should be stored in a locked cabinet or other secure storage unit. Do not store the medication in a motor vehicle. Short term supplies, 3 days or less, are prescribed because of the highly addictive nature of the medication. Any of the controlled substance medication NOT taken should be disposed of properly and NOT SAVED. The recommended method of disposing of unused medications is: Place the medicines in a sealable plastic bag. If the medicine is a solid, crush it or add water to dissolve it. Add something undesirable (cat litter, coffee grounds, etc.) Dispose of sealed bag in household trash Do not flush or pour unused medicines down a sink or drain. Controlled substances should not be shared, given away or sold. Because of the addictive nature and frequent abuse, these medications are sometimes stolen. These medications should be kept in a safe place where they cannot be stolen. Do not keep them in your car or purse. Lost or stolen prescriptions for controlled substances WILL NOT BE REFILLED in this emergency department, regardless of whether a police report was filed. Clinical Impressions Clinical Impression: Rib injury Discharge ED Provider: Jorge Barrow General Adult HPI General Chief complaint: PAIN Stated complaint: AO@home 01/28 LT rib pain Time Seen by Provider: 01/29/23 12:46 Mode of Arrival: Ambulatory Source of Information: Patient Limitations: No Limitations Description of Symptoms (Recalled from ER Triage Doc. by RN): pt presents to ED c/o left sided rib pain. pt states that she leaned over the crib last night to put a baby to bed and hurt her left ribs. History of Present Illness HPI narrative: Patient states that last night she bent over a crib and leaned on and injured her left anterior lower inframammary ribs on the edge of the crib. She says it felt like something moved in her ribs. Since then she has pain in that area. Could not sleep last night. Says that sometimes it hurts to move, sometim
[2023-01-29 13:10] VITALS: BP 155/67; PULSE 57; RESP 18; TEMP 36.6; O2SAT 97
== END 2023-01-29 13:10 | disposition home or self-care (01) ==
PROVIDERS: Emergency Provider Emergency Medicine; PCP Family Medicine
DX: R07.81 Pleurodynia (principal); X50.9XXA Other and unspecified overexertion or strenuous movements or postures, initial encounter
CPT/HCPCS: 71101; 99284

== ENCOUNTER → 2023-07-16 12:21 | Outpatient (CLI) | payer MEDICARE, SELFPAY ==
[2023-07-16 12:29] LABS: Microscopic, Urine URINE MICROSCOPIC (MICROSCOPIC)
--- NOTE | 2023-07-16 12:37 | XR_ITS ---
FINAL REPORT CLINICAL HISTORY: KIDNEY STONE-- rt side pain COMPARISON: None FINDINGS: SINGLE VIEW ABDOMEN A single view of the abdomen was obtained. There is a nonobstructive bowel gas pattern. There are no abnormally dilated loops of small bowel. There is a 39 mm right renal stone present. There is a moderate amount of stool present in the colon. IMPRESSION: Nonobstructive bowel gas pattern. 39 mm right renal stone present. Reviewed, Interpreted and Dictated by Matt Chakraborty III, MD Transcribed by Monique Douglas Authenticated and [facility]
[2023-07-16 13:12] LABS: Appearance,Urine CLEAR (Clear); Bilirubin,Urine Negative (Negative); Blood, Urine 1+ (Negative); Color,Urine YELLOW (Yellow); Glucose,Urine (UA) Negative (Negative); Ketones,Urine Negative (Negative); Leukocyte Esterase,Urine 3+ (Negative); Nitrate,Urine POSITIVE (Negative); Protein,Urine TRACE (Negative); Urobilinogen,Urine 0.2 EU/dl (0.2)
[2023-07-16 13:25] LABS: Bacteria,Urine 3+ /lpf; WBC,Urine TNTC #/hpf (0-3)
== END ==
PROVIDERS: PCP Family Medicine; Visit Provider Urology
DX: N20.0 Calculus of kidney (principal); B95.2 Enterococcus as the cause of diseases classified elsewhere
CPT/HCPCS: 74018; 81001; 87086; 87088; 87186

== ENCOUNTER → 2023-07-29 12:51 | Outpatient (CLI) | payer MEDICARE, SELFPAY ==
--- NOTE | 2023-07-29 12:54 | XR_ITS ---
FINAL REPORT CLINICAL HISTORY: RENAL STONE F/U, SURGERY 1 WEEK AGO FINDINGS: A single supine view of the abdomen was obtained. There is no prior for comparison. The bowel gas pattern is nonspecific but nonobstructive. A right ureteral stent is in place. There are large stones in the inferior pole of the right kidney. Largest stone measures up to 2.7 cm. There is a conglomerate of stones adjacent to the proximal aspect of the stent measuring 2.3 cm. There are likely small stones adjacent to the distal stent. There are no left renal stones. IMPRESSION: Right nephrolithiasis with right ureteral stent in place. Reviewed, Interpreted and Dictated by Liberty Ivory MD Transcribed by Dontrell Emery Authenticated and [facility]
== END ==
PROVIDERS: PCP Family Medicine; Visit Provider Urology
DX: N20.0 Calculus of kidney (principal)
CPT/HCPCS: 74018

== ENCOUNTER → 2023-08-12 11:33 | Outpatient (CLI) | payer MEDICARE, SELFPAY ==
--- NOTE | 2023-08-12 11:40 | XR_ITS ---
FINAL REPORT CLINICAL HISTORY: RENAL STONE COMPARISON: 07/29/2023 FINDINGS: ABDOMEN SINGLE VIEW / KUB A single view of the abdomen was obtained with a coned down view of the pelvis. There is a nonspecific bowel gas pattern. There is a large stone in the lower pole the right kidney measuring 23 mm. There are several smaller right renal stones measuring less than 5 mm. Right ureteral stent is present. IMPRESSION: Several right renal stones, largest measuring 23 mm. Reviewed, Interpreted and Dictated by Matt Chakraborty III, MD Transcribed by Rosemary Mackenzie Authenticated and [facility][1]
== END ==
PROVIDERS: PCP Family Medicine; Visit Provider Urology
DX: N20.0 Calculus of kidney (principal)
CPT/HCPCS: 74018

== ENCOUNTER → 2023-08-20 15:16 | Outpatient (CLI) | payer MEDICARE, SELFPAY ==
[2023-08-20 15:25] LABS: Microscopic, Urine URINE MICROSCOPIC (MICROSCOPIC)
--- NOTE | 2023-08-20 15:37 | XR_ITS ---
FINAL REPORT TECHNIQUE: Chest PA & Lateral CLINICAL HISTORY: PRE OP TESTING, surgery 20th for kidney stones FINDINGS: 2 views of the chest were performed. A loop recorder device is present. The heart size is normal. The mediastinum is within normal limits. There is no acute cardiopulmonary process. There are no pleural effusions. There is no pneumothorax. There is postoperative change involving the left shoulder. IMPRESSION: No acute cardiopulmonary process. Reviewed, Interpreted and Dictated by Matt Chakraborty III, MD Transcribed by Dontrell Emery Authenticated and [facility]
[2023-08-20 16:02] LABS: Basophils # 0.1 K/mm3 (0-0.2); Basophils % 0.8 % (0.1-2.0); Eosinophils # 0.3 K/mm3 (0.0-0.4); Eosinophils % 2.9 % (0.1-12.0); Hematocrit 42.7 % (37.0-47.0); Hemoglobin 14.3 g/dL (12.2-16.2); Lymphocytes # 2.9 K/mm3 (0.7-4.5); Mean Corpuscular HGB Conc 33.4 g/dL (31.8-35.4); Mean Corpuscular Hemoglobin 31.3 pg (27.0-31.2); Mean Corpuscular Volume 93.6 fl (81-99); Mean Platelet Volume 8.4 fl (7.4-10.4); Monocytes # 0.4 K/mm3 (0.1-1.0); Monocytes % 3.7 % (1.7-9.3); Neutrophils # 7.3 K/mm3 (1.8-7.8); Neutrophils % 66.5 % (37.0-80.0); Platelet Count 307 K/mm3 (142-424); Red Blood Count 4.57 M/mm3 (4.20-5.40); Red Cell Distribution Width 13.4 % (11.5-17.5); White Blood Count 10.9 K/mm3 (4.8-10.8)
--- NOTE | 2023-08-20 16:10 | ECG_ITS ---
APPROVED REPORT Exam: Resting ECG HR:57 bpm ECG Measurements Heart Rate 57 AXES IL 164 P 75 QRSd 82 QRS 61 QT 386 T 48 QTc 381 Conclusion SINUS BRADYCARDIA BORDERLINE ECG UNCONFIRMED REPORT Electronically signed by : Jame Peoples MD 08/21/2023 07:53:57
[2023-08-20 16:28] LABS: Appearance,Urine CLEAR (Clear); Bilirubin,Urine Negative (Negative); Blood, Urine 3+ (Negative); Color,Urine YELLOW (Yellow); Glucose,Urine (UA) Negative (Negative); Ketones,Urine TRACE (Negative); Leukocyte Esterase,Urine 2+ (Negative); Nitrate,Urine POSITIVE (Negative); Protein,Urine 2+ (Negative); Specific Gravity, Urine >= 1.030 (1.005-1.030)
[2023-08-20 16:29] LABS: Chloride 103 mmol/L (98-107); Potassium 4.3 mmoL/L (3.5-5.1); Sodium 138 mmol/L (136-145)
[2023-08-20 16:31] LABS: Blood Urea Nitrogen 20 mg/dl (7-17); Estimated Glomerular Filt Rate 34 ml/min (>60); GFR (African American) 41 ML/MIN (>60)
[2023-08-20 16:32] LABS: Alanine Aminotransferase 23 U/L (12-78); Albumin Level 4.5 g/dl (3.5-5.0); Albumin/Globulin Ratio 1.6 (1.1-1.8); Alkaline Phosphatase 85 U/L (38-126); Anion Gap 16.3 mEq/L (5-15); Aspartate Amino Transferase 27 U/L (14-36); Bilirubin,Total 0.5 mg/dl (0.2-1.3); Calcium 9.5 mg/dl (8.4-10.2); Carbon Dioxide 23 mmol/L (22.0-30.0); Globulin 2.8 g/dL (1.3-3.2); Glucose 123 mg/dl (74-100); Total Protein,Serum 7.3 g/dl (6.3-8.2)
[2023-08-20 16:40] LABS: RBC,Urine 50-100 #/hpf (0-3); WBC,Urine 20-50 #/hpf (0-3)
[2023-08-20 16:41] LABS: Bacteria,Urine 2+ /lpf
== END ==
PROVIDERS: PCP Family Medicine; Visit Provider Urology
DX: N20.0 Calculus of kidney (principal); Z01.818 Encounter for other preprocedural examination
CPT/HCPCS: 36415; 71046; 80053; 81001; 85025; 87086; 93005

== ENCOUNTER 2023-08-29 13:40 | Emergency (ER) | payer MEDICARE, SELFPAY ==
[2023-08-29] VITALS (7 sets, daily range): BP systolic 100–153; BP diastolic 47–73; PULSE 57–92; RESP 17–19; TEMP 36.7–36.8; O2SAT 96–99; BMI 26.6
--- NOTE | 2023-08-29 13:56 | CT_ITS ---
PROCEDURE INFORMATION: Exam: CT Abdomen And Pelvis With Contrast Exam date and time: 08/29/2023 3:16 PM Age: 73 years old Clinical indication: Abdominal pain; Generalized; Additional info: Kidney stone S/P stent, b/l flank pain TECHNIQUE: Imaging protocol: Computed tomography of the abdomen and pelvis with contrast. Radiation optimization: All CT scans at this facility use at least one of these dose optimization techniques: automated exposure control; mA and/or kV adjustment per patient size (includes targeted exams where dose is matched to clinical indication); or iterative reconstruction. Contrast material: ISOVUE 370; Contrast volume: 75 ml; Contrast route: IV; REPORTING DATA: Count of CT and Cardiac NM exams in prior 12 months: This patient has received [address] and 0 known cardiac nuclear medicine studies in the 12 months prior to the current study. COMPARISON: CT ABDOMEN PELVIS WO CON 09/09/2022 2:[address] abdomen and pelvis dated 10/25/2021 FINDINGS: Lungs: Lung bases are unremarkable. Liver: No focal hepatic lesions. Gallbladder and bile ducts: Gallbladder is distended without radiopaque cholelithiasis. No biliary ductal dilation. Pancreas: No peripancreatic fluid stranding. No main pancreatic ductal dilation. Spleen: Small triangular hypodensity in the lower pole of the spleen suspicious for splenic infarct. A similar, but larger infarct was present on CT abdomen and pelvis dated 10/25/2021 Adrenal glands: The adrenal glands are normal. Kidneys and ureters: Interval placement of right ureteral stent. Nephrograms are symmetric. Staghorn right nephrolithiasis noted. No hydroureteronephrosis on either side. No solid lesions. Stomach and bowel: No bowel wall thickening or distention. Appendix: A normal appendix is identified. Intraperitoneal space: There is no evidence of free intraperitoneal or pelvic fluid. Vasculature: Unremarkable. No abdominal aortic aneurysm. Lymph nodes: No lymphadenopathy. Urinary bladder: Punctate calcifications layering in the urinary bladder. Reproductive: Unremarkable as visualized. Bones/joints: No acute osseous abnormality. Soft tissues: Unremarkable. IMPRESSION: 1. Triangular hypodensity in the lower pole of the spleen suspicious for splenic infarct. A similar, but larger infarct was present on CT abdomen and pelvis dated 10/25/2021 2. Interval placement of right ureteral stent. Right staghorn calculus is not substantially changed. Previously seen right ureteral calculi are now layering in the urinary bladder
--- NOTE | 2023-08-29 13:58 | HMH.EDGENADL ---
Discharge Plan Disposition Patient Disposition: Home, Self-Care Prescriptions Prescriptions: New Eliquis 5 mg tablet 5 mg PO BID 30 Days Qty: 60 0RF cefdinir 300 mg capsule 300 mg PO BID 10 Days Qty: 20 0RF No Action clopidogrel 75 mg tablet 75 mg PO DAILY rosuvastatin 20 mg tablet 20 mg PO DAILY coenzyme Q10 [Co Q-10] 200 mg capsule 200 mg PO DAILY aspirin [Adult Low Dose Aspirin] 81 mg tablet,delayed release (DR/EC) 81 mg PO DAILY Qty: 30 2RF hydrocodone-acetaminophen 5-325 mg tablet 1 tab PO Q6H PRN (Reason: pain) Qty: 14 0RF Referrals Follow up/Referrals: Brooklynn Torres MD [Primary Care Provider] - See instructions Activity Restrictions/Add. 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 We will presume that this is new and you will still need to be on anticoagulation. Please do not start retaking your aspirin or Plavix until you discuss further with Dr. Torres and only take your Eliquis for anticoagulation purposes. We have added Omnicef onto your antibiotic regimen please follow-up with your urine culture with Dr. Torres in 2 to 3 days. If you start having worsening right-sided pain associated with your recent stent placement please follow-up with your urologist in [place]. Clinical Impressions Clinical Impression: Splenic infarct, UTI (urinary tract infection), Flank pain Discharge ED Provider: Scotty Enciso General Adult HPI <Scotty Enciso MD - Last Filed: 08/29/23 14:51> General Chief complaint: Abdominal Pain Stated complaint: side pain, no accident Time Seen by Provider: 08/29/23 13:42 Mode of Arrival: Ambulatory Source of Information: Patient and Relative Limitations: No Limitations Description of Symptoms (Recalled from ER Triage Doc. by RN): 73 yo F presents to ED with c/o left sided pain. symptoms began yesterday. pt has hx of kidney stones and kidney infections. History of Present Illness HPI narrative: Patient is a 73-year-old female with past medical history of innumerable ureterolithiasis status post multiple interventions who presents emergency department for evaluation of flank pain. Patient had a ureteral stent placed on the right on Saturday due to having multiple ureterolithiasis on the right. Patient has been prescribed Flomax and Augmentin for which she has been compliant. Over the last 24 hours patient has had worsening bilateral flank pain left greater than right. No other acute complaints at this time. Related Data Home Medications Medication Instructions Recorded Confirmed clopidogrel 75 mg tablet 75 mg PO DAILY 12/11/21 07/03/22 coenzyme Q10 200 mg capsule (Co 200 mg PO DAILY 12/11/21 07/03/22 Q-10) rosuvastatin 20 mg tablet 20 mg PO DAILY 12/11/21 07/03/22 Previous Rx's Medication Instructions Recorded aspirin 81 mg tablet,delayed 81 mg PO DAILY #30 tabs 12/11/21 release (Adult Low Dose Aspirin) hydrocodone 5 mg-acetaminophen 325 1 tab PO Q6H PRN pain #14 tabs 01/29/23 mg tablet apixaban 5 mg tablet (Eliquis) 5 mg PO BID 30 days #60 tabs 08/29/23 cefdinir 300 mg capsule 300 mg PO BID 10 days #20 caps 08/29/23 Allergies Allergy/AdvReac Type Severity Reaction Status Date / Time Sulfa (Sulfonamide Allergy Unknown Verified 08/29/23 13:55 Antibiotics) [facility] <Scotty Enciso MD - Last Filed: 08/29/23 14:51> [facility] Disclaimer: The information contained in this section may have been updated after the patient was seen, as this information can be updated by other users. Medical History Abnormal electrocardiography Mitral regurgitation Family History Other No significant family history Social History (Reviewed
[2023-08-29 14:01] LABS: Microscopic, Urine URINE MICROSCOPIC (MICROSCOPIC)
[2023-08-29 14:03] LABS: Appearance,Urine CLEAR (Clear); Blood, Urine 3+ (Negative); Color,Urine YELLOW (Yellow); Glucose,Urine (UA) Negative (Negative); Ketones,Urine Negative (Negative); Leukocyte Esterase,Urine 2+ (Negative); Nitrate,Urine Negative (Negative); Protein,Urine 2+ (Negative); Specific Gravity, Urine >= 1.030 (1.005-1.030); Urobilinogen,Urine 0.2 EU/dl (0.2)
--- NOTE | 2023-08-29 14:06 | PC.NURSE ---
Pt provided with warm blanket and pillow
[2023-08-29 14:10] LABS: Bilirubin,Urine 1+ (Negative)
[2023-08-29 14:16] LABS: Basophils # 0.1 K/mm3 (0-0.2); Basophils % 0.6 % (0.1-2.0); Eosinophils # 0.2 K/mm3 (0.0-0.4); Eosinophils % 1.6 % (0.1-12.0); Hematocrit 41.8 % (37.0-47.0); Hemoglobin 14.4 g/dL (12.2-16.2); Lymphocytes % 25.7 % (10-50); Mean Corpuscular HGB Conc 34.6 g/dL (31.8-35.4); Mean Corpuscular Hemoglobin 31.4 pg (27.0-31.2); Mean Platelet Volume 7.9 fl (7.4-10.4); Monocytes # 0.5 K/mm3 (0.1-1.0); Monocytes % 4.5 % (1.7-9.3); Neutrophils # 7.9 K/mm3 (1.8-7.8); Neutrophils % 67.6 % (37.0-80.0); Platelet Count 360 K/mm3 (142-424); Red Cell Distribution Width 13.5 % (11.5-17.5); White Blood Count 11.6 K/mm3 (4.8-10.8)
[2023-08-29 14:24] LABS: Alanine Aminotransferase 23 U/L (12-78); Albumin Level 4.2 g/dl (3.5-5.0); Albumin/Globulin Ratio 1.4 (1.1-1.8); Alkaline Phosphatase 87 U/L (38-126); Anion Gap 14.8 mEq/L (5-15); Aspartate Amino Transferase 28 U/L (14-36); Bilirubin,Total 0.5 mg/dl (0.2-1.3); Blood Urea Nitrogen 17 mg/dl (7-17); Calcium 9.1 mg/dl (8.4-10.2); Carbon Dioxide 23 mmol/L (22.0-30.0); Chloride 106 mmol/L (98-107); Creatinine Clearance Estimated 53 mL/min (50-200); Estimated Glomerular Filt Rate 49 ml/min (>60); GFR (African American) 59 ML/MIN (>60); Globulin 2.9 g/dL (1.3-3.2); Glucose 113 mg/dl (74-100); Lipase 128 U/L (23-300); Potassium 3.8 mmoL/L (3.5-5.1); Sodium 140 mmol/L (136-145); Total Protein,Serum 7.1 g/dl (6.3-8.2)
[2023-08-29 14:28] LABS: RBC,Urine 20-50 #/hpf (0-3); Squamous Epithelial Cell,Urine Occasional #/hpf (0-5)
[2023-08-29 14:29] LABS: Bacteria,Urine Trace /lpf
--- NOTE | 2023-08-29 15:40 | PC.NURSE ---
rounded on pt at this time, updated pt on POC. pt resting in bed comfortably. call mcarthur in [place].
--- NOTE | 2023-08-29 16:19 | PC.NURSE ---
dr. brasher speaking with dr. león
--- NOTE | 2023-08-29 16:35 | PC.NURSE ---
attempted to call the office for followup appointment for pt, no answer.
--- NOTE | 2023-08-29 16:39 | PC.NURSE ---
dr romelia clemens for confirmation of d/c appointment
== END 2023-08-29 17:16 | disposition home or self-care (01) ==
PROVIDERS: Emergency Provider Emergency Medicine; PCP Family Medicine
DX: D73.5 Infarction of spleen (principal); N39.0 Urinary tract infection, site not specified; R10.30 Lower abdominal pain, unspecified; M54.59 Other low back pain; F17.210 Nicotine dependence, cigarettes, uncomplicated
CPT/HCPCS: 74177; 80053; 81001; 83690; 85025; 96361; 96365; 96375; 99285; J0131; J0696; J2405; Q9967

== ENCOUNTER → 2023-10-01 15:41 | Outpatient (CLI) | payer MEDICARE, SELFPAY ==
[2023-10-01 15:54] LABS: Microscopic, Urine URINE MICROSCOPIC (MICROSCOPIC)
--- NOTE | 2023-10-01 16:03 | XR_ITS ---
FINAL REPORT CLINICAL HISTORY: RENAL STONE, right stone COMPARISON: None FINDINGS: The visualized intestinal gas pattern appears unremarkable without evidence to suggest obstruction. There are lower pole nodes present in the right kidney measuring up to 8 mm in size. There is right pelvic calcification identified likely phleboliths. No calcifications are seen overlying the left kidney. IMPRESSION: Right renal nephrolithiasis. Reviewed, Interpreted and Dictated by Brooklynn Thompson MD Transcribed by Monique Douglas Authenticated and [facility]
[2023-10-01 16:53] LABS: Appearance,Urine CLEAR (Clear); Bilirubin,Urine Negative (Negative); Blood, Urine Negative (Negative); Color,Urine YELLOW (Yellow); Glucose,Urine (UA) Negative (Negative); Ketones,Urine Negative (Negative); Leukocyte Esterase,Urine TRACE (Negative); Nitrate,Urine Negative (Negative); Protein,Urine Negative (Negative); Specific Gravity, Urine 1.025 (1.005-1.030); Urobilinogen,Urine 0.2 EU/dl (0.2)
[2023-10-01 17:54] LABS: Squamous Epithelial Cell,Urine Occasional #/hpf (0-5)
== END ==
PROVIDERS: PCP Family Medicine; Visit Provider Urology
DX: N20.0 Calculus of kidney (principal)
CPT/HCPCS: 74018; 81001

== ENCOUNTER 2024-01-22 15:14 | Outpatient (CLI) | payer MEDICARE, SELFPAY ==
[2024-01-22 15:42] LABS: Chloride 106 mmol/L (98-107); Sodium 140 mmol/L (136-145)
[2024-01-22 15:43] LABS: Potassium 4.2 mmoL/L (3.5-5.1)
[2024-01-22 15:45] LABS: Alanine Aminotransferase 20 U/L (12-78); Albumin Level 4.4 g/dl (3.5-5.0); Alkaline Phosphatase 98 U/L (38-126); Anion Gap 9.2 mEq/L (5-15); Aspartate Amino Transferase 27 U/L (14-36); Bilirubin,Direct 0.1 mg/dl (0.0-0.4); Bilirubin,Indirect 0.7 mg/dL (0.0-0.9); Bilirubin,Total 0.8 mg/dl (0.2-1.3); Bilirubin,Unconjugated 0.6 mg/dL (0.0-1.1); Blood Urea Nitrogen 19 mg/dl (7-17); Carbon Dioxide 29 mmol/L (22.0-30.0); Cholesterol 217 mg/dl (140-200); Estimated Glomerular Filt Rate 44 ml/min (>60); GFR (African American) 53 ML/MIN (>60); Triglycerides 177 mg/dl (30-150); VLDL Cholesterol 35 mg/dL (0-40)
[2024-01-22 15:46] LABS: Calcium 9.9 mg/dl (8.4-10.2); Chol/HDL Ratio 3.5 (1-3.5); Glucose 100 mg/dl (74-100); HDL Cholesterol 62 mg/dl (40-60)
[2024-01-22 16:21] LABS: Direct LDL Cholesterol 110.89 mg/dL (100-129)
== END 2024-01-22 23:59 ==
LOC: LAB 15:14
PROVIDERS: PCP Family Medicine; Visit Provider Nurse Practitioner
DX: D73.5 Infarction of spleen (principal); R06.00 Dyspnea, unspecified; I10 Essential (primary) hypertension; E78.5 Hyperlipidemia, unspecified; Z79.899 Other long term (current) drug therapy
CPT/HCPCS: 36415; 80048; 80061; 80076

== ENCOUNTER 2024-02-12 13:49 | Outpatient (CLI) | payer MEDICARE, SELFPAY ==
--- NOTE | 2024-02-12 13:56 | US_ITS ---
FINAL REPORT TECHNIQUE: Ultrasound images of the thyroid were obtained. CLINICAL HISTORY: thyroid nodule FINDINGS: The right lobe of the thyroid is surgically absent. The left lobe of the thyroid measures 4.09 x 2.66 x 1.81 cm. It is normal in echogenicity. There is an 8 x 6 x 5 cm solid, hypoechoic lesion in the left lobe which is stable from prior exam, TI-RADS category 4. There is enlargement of the lower pole of the left lobe with a poorly defined nodule measuring 20 x 16 mm which was not well-visualized on prior exam but likely stable. This is solid and isoechoic, TR 3. IMPRESSION: TI-RADS category 3 and 4 left lobe nodules. Recommend follow-up. Reviewed, Interpreted and Dictated by Matt Chakraborty III, MD Transcribed by Jessi Thornton Authenticated and . [facility]
--- NOTE | 2024-02-12 14:34 | CA_ITS ---
APPROVED REPORT EXAM: Comprehensive 2D, Doppler, and color-flow Echocardiogram Equipment Sales Specialist: Sandhya Almonte, RCS, RVS Ht: 5 ft 1 in Wt: 127lbs BSA: 1.56 HR: 45 bpm BP: 127/55 mmHg Rhythm: Bradycardia Indications: Loop recoeder, Abn EKG, Dyspnea, Smoker, HTN, Murmurs 2D Dimensions Aortic Root 2.86 cm F: 2.7 - 3.3 LA Volume 50.20 mL Left Atrium 3.23 cm F: 2.7 - 3.8 LA Volume Index 32.18 mL/m2 (M/F) 16-34 RVID Base (AP4) 3.68 cm (M/F) 2.5-4.1 EF AP4 61.90 % LVOT 1.66 cm (M/F) 1.5-2.5 GL Strain -22.3 % M-Mode Dimensions RVDd 2.34 cm (0.9-2.6) LVDd 5.12 cm (3.5-5.7) Ao Diam 2.96 cm (2.0-3.7) LVDs 3.35 cm (3.5-5.7) IVSd 0.84 cm (0.6-1.1) PWd 0.87 cm (0.6-1.1) EF (Teich) 63.30% EPSs 0.44 cm FS 34.60% EDV (Teich) 124.90 mL TAPSE 1.94 (<1.7) ESV (Teich) 45.80 mL LV Diastology E Decel Time 197 (160-240 msec) E/A Ratio 1.3 MED E' 7.8 (>= 7 cm/sec) MED A' 7.20 cm/s E'/MED E' Ratio 12.54 (<= 14) LAT E' 9.4 (>= 10 cm/sec) LAT A' 5.00 cm/s E/LAT E' Ratio 10.40 (<= 14) Aortic Valve LVOT Max 101.0 (70-110 cm/s) ORION Index 1.25 cm2/m2 LVOT VTI 26.53 cm AoV Peak Morales. 121.0 (50-130 cm/s) AI PHT 674.00 ms AO Mean GR. 2.60 (<5 mmHg) AO VTI 29.5 (18-25 cm) ORION (VTI) 1.95 (2.5-4.5 cm2) Mitral Valve MV E Max Morales. 98.0 (40-130 cm/s) MV A Velocity 73.0 (40-130 cm/s) E/A Ratio 1.34 MV Decel. Time 197 (160-240 ms) MV Mean Gr. 1.00 (<2mmHg) Pulmonary Valve MA End VMAX 168.0 cm/s Tricuspid Valve TR P. Velocity 247.00 cm/s RAP Estimate 10.00 mmHg RVSP 34.40 mmHg Left Ventricle The left ventricle is normal size. The left ventricular systolic function is normal. The left ventricular ejection fraction is within the normal range. There is normal left ventricular wall thickness. There is normal LV segmental wall motion. The left ventricular diastolic function is normal. LVEF is 60%. Right Ventricle The right ventricle is normal size. The right ventricular systolic function is normal. Atria Left atrium is mildly dilated. Right atrium is mildly dilated. There is no Doppler evidence of interatrial shunt. Aortic Valve The aortic valve is mildly thickened. Mild aortic regurgitation. There is no aortic valvular stenosis. Mitral Valve The mitral valve leaflets are mildly thickened. No evidence of mitral valve stenosis. Mild mitral regurgitation. Tricuspid Valve The tricuspid valve leaflets are thin and pliable. Mild tricuspid regurgitation. RVSP is 25-30 mmHg. Pulmonic Valve The pulmonary valve is normal in structure. Trace pulmonic regurgitation. Great Vessels The aortic root is normal in size. The ascending aorta is normal in size. IVC is normal in size and collapses >50% with inspiration. Pericardium Trivial, anterior pericardial effusion present. There are no echo indications of tamponade. Other Information Study Quality: Fair Conclusion Normal biventricular systolic function. Mild biatrial dilation. Mild MR, mild AI, mild TR. Trivial, anterior pericardial effusion present. There are no echo indications of tamponade. Electronically signed by : Faina Arguello MD 02/15/2024 00:36:20
== END 2024-02-12 23:59 ==
LOC: RAD 13:50
PROVIDERS: PCP Family Medicine; Visit Provider Nurse Practitioner
DX: D73.5 Infarction of spleen (principal); R06.00 Dyspnea, unspecified; I10 Essential (primary) hypertension; E04.1 Nontoxic single thyroid nodule
CPT/HCPCS: 76536; 93306

== ENCOUNTER 2024-03-24 15:08 | Outpatient (CLI) | payer MEDICARE, SELFPAY ==
[2024-03-24 15:20] LABS: Basophils # 0.1 K/mm3 (0-0.2); Basophils % 1.2 % (0.1-2.0); Eosinophils # 0.2 K/mm3 (0.0-0.4); Eosinophils % 1.8 % (0.1-12.0); Hematocrit 46.1 % (37.0-47.0); Lymphocytes # 3.5 K/mm3 (0.7-4.5); Lymphocytes % 28.8 % (10-50); Mean Corpuscular HGB Conc 32.5 g/dL (31.8-35.4); Mean Corpuscular Hemoglobin 30.9 pg (27.0-31.2); Mean Corpuscular Volume 95.1 fl (81-99); Mean Platelet Volume 8.2 fl (7.4-10.4); Monocytes # 0.5 K/mm3 (0.1-1.0); Monocytes % 4.3 % (1.7-9.3); Neutrophils # 7.7 K/mm3 (1.8-7.8); Platelet Count 338 K/mm3 (142-424); Red Blood Count 4.84 M/mm3 (4.20-5.40); Red Cell Distribution Width 13.8 % (11.5-17.5)
[2024-03-24 16:22] LABS: Alanine Aminotransferase 17 U/L (12-78); Albumin Level 4.5 g/dl (3.5-5.0); Alkaline Phosphatase 90 U/L (38-126); Anion Gap 13.7 mEq/L (5-15); Aspartate Amino Transferase 27 U/L (14-36); Bilirubin,Direct 0.2 mg/dl (0.0-0.4); Bilirubin,Indirect 0.6 mg/dL (0.0-0.9); Bilirubin,Total 0.8 mg/dl (0.2-1.3); Bilirubin,Unconjugated 0.7 mg/dL (0.0-1.1); Blood Urea Nitrogen 17 mg/dl (7-17); Calcium 9.8 mg/dl (8.4-10.2); Carbon Dioxide 27 mmol/L (22.0-30.0); Chloride 103 mmol/L (98-107); Estimated Glomerular Filt Rate 54 ml/min (>60); GFR (African American) 66 ML/MIN (>60); Glucose 88 mg/dl (74-100); Magnesium 1.9 mg/dl (1.6-2.3); Potassium 4.7 mmoL/L (3.5-5.1); Sodium 139 mmol/L (136-145); Total Protein,Serum 7.4 g/dl (6.3-8.2)
== END 2024-03-24 23:59 | disposition home or self-care (01) ==
LOC: LAB 15:09
PROVIDERS: PCP Family Medicine; Visit Provider Internal Medicine
DX: I10 Essential (primary) hypertension (principal); R06.00 Dyspnea, unspecified; D73.5 Infarction of spleen; Z95.818 Presence of other cardiac implants and grafts; E04.1 Nontoxic single thyroid nodule; F17.210 Nicotine dependence, cigarettes, uncomplicated
CPT/HCPCS: 36415; 80048; 80076; 83735; 85025

== ENCOUNTER 2024-08-07 12:56 | Outpatient (CLI) | payer MEDICARE, SELFPAY ==
--- NOTE | 2024-08-07 13:05 | XR_ITS ---
FINAL REPORT CLINICAL HISTORY: RT FLANK PAIN, HX OF KIDNEY STONES FINDINGS: A single view of the abdomen was obtained. There is a nonobstructive bowel gas pattern. There are no abnormally dilated loops of small bowel. There is a moderate amount of retained stool. IMPRESSION: 1. Nonobstructive bowel gas pattern. 2. Moderate amount of retained stool. Reviewed, Interpreted and Dictated by Red Chacon MD Transcribed by Jessi Thornton Authenticated and [facility]
== END 2024-08-07 23:59 | disposition home or self-care (01) ==
LOC: RAD 12:57
PROVIDERS: PCP Family Medicine; Visit Provider Urology
DX: N20.0 Calculus of kidney (principal)
CPT/HCPCS: 74018

== ENCOUNTER 2025-01-18 17:13 | Emergency (ER) | payer MEDICARE, SELFPAY ==
[2025-01-18 17:58] VITALS: BP 102/74; PULSE 52; RESP 16; TEMP 36.8; O2SAT 99; BMI 24.5
[2025-01-18 18:00] VITALS: BP 143/73; PULSE 60; O2SAT 97
[2025-01-18 18:15] VITALS: BP 143/73; PULSE 52; O2SAT 97
[2025-01-18 18:21] LABS: Coronavirus 19, PCR Not Detected (NotDetected); Influenza A, PCR Not Detected (NotDetected); Influenza B, PCR Not Detected (NotDetected)
--- NOTE | 2025-01-18 18:24 | ED_ITS ---
<Statement entered by Elham Willett MD - 01/18/25 23:36> I was consulted by the BRAYDON, and we discussed the complexity of the problems being addressed. I approved the treatment and management plan for this patient's care in the emergency department, thus performing a substantive portion of the medical decision making. Elham Willett MD, NARENDRA, FACEP Discharge Plan Disposition Patient Disposition: Home, Self-Care Condition: Good Prescriptions Prescriptions: New doxycycline hyclate 100 mg capsule 100 mg PO BID 10 Days Qty: 20 0RF prednisone 50 mg tablet 50 mg PO DAILY 5 Days Qty: 5 0RF albuterol sulfate 90 mcg/actuation HFA aerosol inhaler 1 inh inhalation Q4H PRN (Reason: shortness of breath or wheezing) Qty: 8.5 0RF bslzseyarjhhuac-xpukjyfvc-VT [Bromfed DM] 2-30-10 mg/5 mL syrup 5 ml PO Q4H PRN (Reason: sinus symptoms) Qty: 118 0RF No Action Eliquis 5 mg tablet 5 mg PO BID 90 Days Qty: 180 3RF Referrals Follow up/Referrals: Brooklynn Torres MD [Primary Care Provider] - See instructions Activity Restrictions/Add. Instructions Additional Instructions/Restrictions: As we discussed I have sent in steroids a metered-dose inhaler antibiotics and a cough medicine. Please take antibiotics till they are gone. If you have continued new or worsening signs or symptoms follow-up with your PCP within 48 hours or return to the ER as needed. Clinical Impressions Clinical Impression: Respiratory tract infection, Acute exacerbation of chronic obstructive pulmonary disease Print Language Print Language: Palauan Discharge ED Provider: Elham Willett General Adult HPI General Chief complaint: Weakness Stated complaint: Cough,congestion,wheezing,poor eyesight Time Seen by Provider: 01/18/25 18:24 Mode of Arrival: Ambulatory Source of Information: Patient Description of Symptoms (Recalled from ER Triage Doc. by RN): Pt. presents to the ED with weakness, fatigue, cough, runny nose, and wheezing. She states her grandson had the flu last week and she suspects she had the flu but is unable to get her energy back and feels her weakness is getting worse. Denies known fevers and pain. History of Present Illness HPI narrative: Patient presents for evaluation of 1 week of cough congestion wheezing. Patient reports that her grandson had the flu last week and suspects that she may have had an acute infection however she is not feeling better. Patient does smoke does not have a known diagnosis of COPD she states. She denies a chest pain hemoptysis hematochezia melena nausea vomiting or diarrhea. Related Data Previous Rx's ?Medication ?Instructions ?Recorded apixaban 5 mg tablet (Eliquis) 5 mg PO BID 90 days #180 tabs 02/25/24 albuterol sulfate 90 mcg/actuation 1 inh inhalation Q4H PRN shortness 01/18/25 aerosol inhaler of breath or wheezing #8.5 grams tsxrgsadouojtta-danvkhwwbgqreuk-IE 5 ml PO Q4H PRN sinus symptoms 01/18/25 2 mg-30 mg-10 mg/5 mL oral syrup #118 mL (Bromfed DM) doxycycline hyclate 100 mg capsule 100 mg PO BID 10 days #20 caps 01/18/25 prednisone 50 mg tablet 50 mg PO DAILY 5 days #5 tabs 01/18/25 Allergies Allergy/AdvReac Type Severity Reaction Status Date / Time Sulfa (Sulfonamide Allergy Unknown Unknown Verified 01/18/25 17:56 Antibiotics) allergy reaction [facility] Disclaimer: The information contained in this section may have been updated after the patient was seen, as this information can be updated by other users. Medical History Mitral regurgitation Abnormal electrocardiography Family History Other No significant family history Social History Smoking Status: Never smoker second hand exposure: Yes alcohol intake: never counseling provided: none substance use type: denies use current occupational status: retired Travel in the last 8 weeks: Inside the [place] household members: spouse housing: house current occupational exposures/hazards: No caffeine: No Have you lived/traveled outside US in past 30 days?: No Contact w/someone who lives/traveled outside US past 30 days?: No Exposure to someone with infectious disease in past 14 days?: No Do you have a fever (greater than 100.4 F or 38 C)?: No Have you tested positive for COVID-19: No Exposed to someone with COVID-19 in past 14 days?: No Do you have a sore throat?: No Do you have a cough?: No Do you have any weakness?: No Do you have any diarrhea?: No Are you experiencing any unusual bleeding?: No Do you have any muscle aches/pain?: No Do you have any abdominal pain?: No Are you experiencing loss of taste or smell?: No Other Medical History Have you received the Flu Vaccine for this season: No Have you received the Pneumonia Vaccine: No ROS Obtained: Yes Systems reviewed as appropriate & no additional complaints except as documented Physical Exam General General appearance: alert and in no apparent distress Respiratory Respiratory exam: Present normal lung sounds bilaterally Cardiovascular Cardiovascular exam: Present regular rate Neurological Exam Neurological exam: Present alert and oriented X3 Medical Decision Making Medical Records Medical records reviewed: Yes I reviewed the patient's medical records. Screening: Per USPSTF and CDC recommendations, given the prevalence of disease in our region, it is our hospital?s policy to screen for HIV and viral Hepatitis for all patients aged 18 and over and those with ongoing risk factors. Justin Inquiry Pt receiving controlled substance: No Vital Signs: 01/18/25 17:58 01/18/25 18:00 01/18/25 18:15 Temperature 98.2 F Temperature Source Oral Pulse Rate 60 52 L Pulse Rate [Right Brachial] 52 L Respiratory Rate 16 Blood Pressure 143/73 H 143/73 H Blood Pressure [Right Arm] 102/74 L Blood Pressure Mean 96 Blood Pressure Mean [Right Arm] 83 Blood Pressure Source [Right Arm] Automatic Cuff Blood Pressure Position [Right Arm] Sitting 02 Sat by Pulse Oximetry 99 97 97 Oxygen Delivery Method Room Air 01/18/25 19:53 Temperature 98.3 F Temperature Source Oral Pulse Rate 70 Pulse Rate [Right Brachial] Respiratory Rate 18 Blood Pressure 143/73 H Blood Pressure [Right Arm] Blood Pressure Mean Blood Pressure Mean [Right Arm] Blood Pressure Source [Right Arm] Blood Pressure Position [Right Arm] 02 Sat by Pulse Oximetry Oxygen Delivery Method Room Air Lab Data Lab results reviewed: Yes I reviewed the patient's lab results. Lab Results 01/18/25 17:49: SARS-CoV-2 (PCR) Not detected, Influenza A Untype (PCR) Not detected, Influenza Type B (PCR) Not detected 01/18/25 18:27: WBC 8.5, RBC 4.72, Hgb 14.2, Hct 42.3, MCV 89.6, MCH 30.1, MCHC 33.6, RDW 13.2, Plt Count 278, MPV 10.4, Neut % (Auto) 57.2, Lymph % (Auto) 36.4, [place] % (Auto) 5.1, Eos % (Auto) 0.1, Baso % (Auto) 0.6, Neut # (Auto) 4.8, Lymph # (Auto) 3.1, [place] # (Auto) 0.4, Eos # (Auto) 0.0, Baso # (Auto) 0.1, PT 10.5, INR 0.93, Sodium 141, Potassium 4.3, Chloride 110 H, Carbon Dioxide 25, Anion Gap 10.3, BUN 18 H, Creatinine 0.90, Estimated Creat Clear 45, Estimated GFR 61, Est GFR ( Amer) 74, Glucose 105 H, Calcium 8.7, Total Bilirubin 0.7, AST 25, ALT 19, Alkaline Phosphatase 72, NT-Pro-B Natriuret Pep 261, Total Protein 6.8, Albumin 4.1, Globulin 2.7, Albumin/Globulin Ratio 1.5, Procalcitonin 0.045 01/18/25 18:43: VBG pH 7.39, VBG pCO2 39.3, VBG pO2 40.6 H, VBG HCO3 23.4, VBG Total CO2 24.6, VBG O2 Saturation 78.9 H, VBG Base Excess -1.6, VBG Lactic Acid 1.2 01/18/25 18:27 01/18/25 18:27 Orders (Tests/Meds): ED MEDICATIONS Discontinued Medications Generic Name Dose Route Start Last Admin Trade Name Sathishq PRN Reason Stop Dose Admin Albuterol/Ipratropium 9 ml 01/18/25 18:30 01/18/25 19:14 Ipratropium/Albuterol 3 Ml Neb IH 01/18/25 18:31 9 ml ONCE ONE Administration Dexamethasone Sodium Phosphate 10 mg 01/18/25 18:30 01/18/25 19:14 Dexamethasone 4mg/Ml 5ml Mdv IV 01/18/25 18:31 10 mg ONCE ONE Administration Magnesium Sulfate 2 gm in 50 mls @ 50 mls/hr 01/18/25 19:34 01/18/25 20:03 Magnesium Sulfate 2gm/50ml Premix IV 01/18/25 20:33 Not Given ONCE ONE ORDERS Category Date Time Status Chest XR 2 view (NOT portable) [XR chest 2V] Stat Exams 01/18/25 18:31 Completed BNP [NT Pro Brain Natriuretic Pep.] Stat Lab 01/18/25 18:27 Completed CBC w/Auto Diff [Complete Blood Count Auto Diff] Stat Lab 01/18/25 18:27 Completed CMP [Comprehensive Metabolic Panel] Stat Lab 01/18/25 18:27 Completed INR [Prothrombin Time INR] Stat Lab 01/18/25 18:27 Completed Procalcitonin Stat Lab 01/18/25 18:27 Completed Rapid PCR Covid and Flu A/B Stat Lab 01/18/25 17:49 Completed VBG [Venous Blood Gas] Stat RT 01/18/25 18:43 Completed Medical Decision Narrative: In summary patient is a 74-year-old female who presents to the emergency department for evaluation of cough congestion and malaise. Patient is hemodynamically stable upon arrival, afebrile. Zickel exam is remarkable for a well-nourished well-developed 74-year-old female who does not currently appear to be in acute distress. Patient actually has end expiratory wheezes in all 4 frye however she has air entry heard to the bases. She has no increased work of breathing or accessory muscle use. Heart sounds are normal patient is normal sinus rhythm on the bedside monitor abdomen soft nontender no rebound or guarding or rigidity. There is no dependent edema noted.. Differential diagnosis includes COPD exacerbation versus viral or bacterial respiratory tract infection etc. Initial workup will be conducted with hematologic labs respiratory panel plain film chest x-ray. Initial interventions include DuoNeb Decadron 2 g of IV magnesium. Initial workup reviewed by me and shows that her white count is normal with no neutrophilic shift normal H&H INR VBG shows a pH of 7.39 with a pCO2 of 39.3 and the remainder of her hematologic labs are nonactionable. Respiratory panel is negative for COVID and flu. My informal interpretation of her plain film chest x-ray shows no acute processes.. Upon repeat evaluation patient actually reports improvement in her cough and reauscultation of her lung shows no wheezing now with clear breath sounds. Given this I had a shared decision-making discussion with the patient regarding her GARZA findings, suggestions and I have offered the patient a prednisone metered-dose inhaler and an antibiotic to cover for atypical infection given the length of time she been having symptoms. Patient is verbalizing understanding and agreement given that patient to be prescribed doxycycline and short course of steroids and metered-dose inhaler with close follow-up with her PCP within 48 hours if she has continued new or worsening signs or symptoms. Critical Care Critical Care Time Critical Care Time: Yes Attestation: On 01/18/25, the high probability of a clinically significant, sudden or life threatening deterioration of the following system(s) required my full and direct attention, intervention and personal management. The time I documented below is in addition to time spent performing reported procedures but includes the following listed in this critical care notation. Total Time Total Critical Care Time: 35
--- NOTE | 2025-01-18 18:31 | XR_ITS ---
PROCEDURE INFORMATION: Exam: XR Chest Exam date and time: 01/18/2025 6:46 PM Age: 74 years old Clinical indication: Dyspnea; Additional info: Dyspnea, exposure for TECHNIQUE: Imaging protocol: Radiologic exam of the chest. Views: 2 views. COMPARISON: CR XR CHEST 2V 20/08/2023 15:41 FINDINGS: Tubes, catheters and devices: Anterior chest wall device. Lungs: Bilateral apical scarring. Pleural spaces: Unremarkable. No pleural effusion. No pneumothorax. Heart/Mediastinum: Unremarkable. No cardiomegaly. Bones/joints: Postsurgical changes of left glenohumeral joint. Hardware appears intact. IMPRESSION: No acute findings.
[2025-01-18 18:38] LABS: Basophils # 0.1 K/mm3 (0-0.2); Basophils % 0.6 % (0.1-2.0); Eosinophils % 0.1 % (0.1-12.0); Hematocrit 42.3 % (37.0-47.0); Hemoglobin 14.2 g/dL (12.2-16.2); Lymphocytes # 3.1 K/mm3 (0.7-4.5); Lymphocytes % 36.4 % (10-50); Mean Corpuscular HGB Conc 33.6 g/dL (31.8-35.4); Mean Corpuscular Hemoglobin 30.1 pg (27.0-31.2); Mean Corpuscular Volume 89.6 fl (81-99); Mean Platelet Volume 10.4 fl (7.4-10.4); Monocytes # 0.4 K/mm3 (0.1-1.0); Monocytes % 5.1 % (1.7-9.3); Neutrophils # 4.8 K/mm3 (1.8-7.8); Neutrophils % 57.2 % (37.0-80.0); Platelet Count 278 K/mm3 (142-424); Red Blood Count 4.72 M/mm3 (4.20-5.40); Red Cell Distribution Width 13.2 % (11.5-17.5); White Blood Count 8.5 K/mm3 (4.8-10.8)
--- NOTE | 2025-01-18 18:43 | PC.NURSE ---
REPIRATORY AWARE OF VBG ORDER
[2025-01-18 18:45] LABS: INR 0.93 (0.9-1.1); Prothrombin Time 10.5 seconds (10.1-12.5)
[2025-01-18 18:49] LABS: Lactate Venous 1.2 mmol/L (0.4-2.0); VBG Base Excess -1.6 mmol/L (-2.4-2.3); VBG HCO3 23.4 mmol/L (23-30); VBG Oxygen Saturation 78.9 % (50-70); VBG PCO2 39.3 mmol/L (35-51); VBG PH 7.39 mmol/L (7.31-7.41); VBG PO2 40.6 mmol/L (28-40); VBG Total CO2 24.6 mmol/L (23-27)
[2025-01-18 19:01] LABS: Alanine Aminotransferase 19 U/L (12-78); Albumin Level 4.1 g/dl (3.5-5.0); Albumin/Globulin Ratio 1.5 (1.1-1.8); Alkaline Phosphatase 72 U/L (38-126); Anion Gap 10.3 mEq/L (5-15); Aspartate Amino Transferase 25 U/L (14-36); Bilirubin,Total 0.7 mg/dl (0.2-1.3); Blood Urea Nitrogen 18 mg/dl (7-17); Calcium 8.7 mg/dl (8.4-10.2); Carbon Dioxide 25 mmol/L (22.0-30.0); Chloride 110 mmol/L (98-107); Creatinine Clearance Estimated 45 mL/min (50-200); Estimated Glomerular Filt Rate 61 ml/min (>60); GFR (African American) 74 ML/MIN (>60); Globulin 2.7 g/dL (1.3-3.2); Glucose 105 mg/dl (74-100); Potassium 4.3 mmoL/L (3.5-5.1); Sodium 141 mmol/L (136-145); Total Protein,Serum 6.8 g/dl (6.3-8.2)
[2025-01-18 19:10] LABS: NT Pro Brain Natriuretic Pep. 261 pg/mL (0-450)
[2025-01-18] MEDS: DEXAMETHASONE 4MG/ML 5ML MDV 10 MG IV (19:14)
[2025-01-18] MEDS: IPRATROPIUM/ALBUTEROL 3 ML NEB 9 ML IH (19:14)
[2025-01-18 19:18] LABS: Procalcitonin 0.045 ng/mL (0.0-2.0)
[2025-01-18 19:53] VITALS: BP 143/73; PULSE 70; RESP 18; TEMP 36.8; O2SAT 98
== END 2025-01-18 20:03 | disposition home or self-care (01) ==
PROVIDERS: Physician Assistant; Emergency Provider Student in an Organized Health Care Education/Training Program; PCP Family Medicine
DX: J44.1 Chronic obstructive pulmonary disease with (acute) exacerbation (principal); J98.8 Other specified respiratory disorders; R53.1 Weakness; R53.83 Other fatigue; R05.9 Cough, unspecified; R06.2 Wheezing; R09.89 Other specified symptoms and signs involving the circulatory and respiratory systems; Z20.828 Contact with and (suspected) exposure to other viral communicable diseases
CPT/HCPCS: 71046; 80053; 82803; 83880; 84145; 85025; 85610; 87636; 96365; 96374; 99291; J1100; J7620

== ENCOUNTER 2025-04-26 11:46 | Outpatient (CLI) | payer MEDICARE, SELFPAY ==
--- OUTSIDE RECORDS SUMMARY | 2025-04-26 11:50 | XMS_ITS | Encounter Summary ---
Author Organization [facility] Address [address] [place] [address] Care Team Providers Care Engineer Intern Name Role Phone Angel Torres MD Primary Care Provider [phone] Reason for Referral * Diagnostic X-Ray (Routine) - Closed Specialty Diagnoses / Procedures Referred By Contac t Referred To Contact Diagnoses Uric acid nephrolithiasis Procedures X-ray abdomen KUB 1 view Sam Hernandez MD [address] [place] [address] Phone: tel: fax: Referral ID Status Reason Start Date Expiration Date Visits Re quested Visits Authorized [id number] Closed 08/23/2023 02/19/2024 1 1 Encounter Details Date Type Department Care Team (Late st Contact Info) Description 08/23/2023 Outside Orders [facility] Admitting [address] [place] [phone] Sam Hernandez MD [address] [facility] [place] [address] Uric acid nephrolithiasis (Primary Dx) Social History Tobacco Use Types Packs/Day Years Used Date Smoking Tobacco: Every Day Cigarettes 1 50 Smokeless Tobacco: Never Alcohol Use Standard Drinks/Week Comments Never 0 (1 standard drink = 0.6 oz pur e alcohol) Comments No Sex and Gender Information Value Date Recorded Sex Assigned at Not on file Legal Sex Female 5:41 PM CDT Gender Identity Not on file Sexual Orientation Not on file COVID-19 Exposure Response Date Recorded In the last 10 days, have yo u been in contact with someone who was confirmed or suspected to have Coronavirus/COVID-19? No / Unsure 08/23/2023 11:16 AM EDT documented as of this encounter Plan of Treatment Not on file documented as of this encounter Results * X-ray abdomen KUB 1 view (08/23/2023 10:35 AM EDT) Anatomical Region Laterality Modality Abdomen X-Ray 08/23/2023 11:1 1 AM EDT Impressions 08/23/2023 11:47 AM EDT New right ureteral stent. Interval decrease in size in the right renal stone with stones along the course of the right ureteral stent presumably related to lithotripsy. Images reviewed, interpreted, and dictated by Liberty Ivory MD Narrative 08/23/2023 11:47 AM EDT KUB INDICATION: Preoperative evaluation for renal stones. COMPARISON: 07/17/2023. FINDINGS: A supine view of the abdomen was obtained. There has been interval placement of a right ureteral stent. The large renal stone seen previously has decreased in size now measuring 2.4 cm in greatest dimension. There are likely small stones along the course of the proximal stent and there may be a stone at the distal stent. The bowel gas pattern is nonspecific. No acute osseous abnormality is identified. Procedure Note Liberty Ivory MD - 08/23/2023 KUB INDICATION: Preoperative evaluation for renal stones. COMPARISON: 07/17/2023. FINDINGS: A supine view of the abdomen was obtained. There has been interval placement of a right ureteral stent. The large renal stone seen previously has decreased in size now measuring 2.4 cm in greatest dimension. There are likely small stones along the course of the proximal stent and there may be a stone at the distal stent. The bowel gas pattern is nonspecific. No acute osseous abnormality is identified. IMPRESSION: New right ureteral stent. Interval decrease in size in the right renal stone with stones along the course of the right ureteral stent presumably related to lithotripsy. Images reviewed, interpreted, and dictated by Liberty Ivory MD us Sam Hernandez MD [facility] ORDERABLE S Final Result documented in this encounter Visit Diagnoses Diagnosis Uric acid nephrolithiasis- Primary Uric acid nephrolithiasis documented in this encounter Care Teams Engineer Intern Relationship Specialty Start Date End Date Angel Torres MD [address] [place] [address] PCP - General Family Medicine 07/17/23 documented as of this encounter
--- OUTSIDE RECORDS SUMMARY | 2025-04-26 11:50 | XMS_ITS | Referral Summary ---
Author Organization [facility] Address [address] [place] [address] Care Team Providers Care Medical Insurance Claims Processor Name Role Phone Angel Torres MD Primary Care Provider [phone] Allergies Active Allergy Reactions Criticality Noted Date Comments Sulfa (Sulfonamide Antibiotics) Hives High 12/06 Medications nitrofurantoin, macrocrystal-monoh ydrate, (MACROBID) 100 MG capsule Take 1 capsule (100 mg total) by mouth 2 (two) times daily. 07/19/20 23 Active ondansetron (ZOFRAN-ODT) 8 MG disintegrating tablet Take 1 tablet (8 mg total) by mouth 3 (three) times daily. 07/17/20 23 Active sulfamethoxazole-t rimethoprim (BACTRIM DS) 800-160 mg per tablet Take 1 tablet (160 mg of trimethoprim total) by mouth 2 (two) times daily. Active HYDROCODONE-ACETAM INOPHEN ORAL Q6H 01/30/20 23 Active scopolamine (TRANSDERM-SCOP) 1 mg over 3 days patch 1 patch (1.5 mg total) by Transdermal (Scopolamine) route every third day Applied last night . Active amoxicillin-clavul anate (AUGMENTIN) 875-125 mg per tablet Take 1 tablet by mouth 2 (two) times daily. Active fluconazole (DIFLUCAN) 50 MG tablet Take 1 tablet (50 mg total) by mouth daily. Active Active Problems Problem Noted Date Diagnosed Date Hx of blood clots 08/02/2023 PONV (postoperative nausea and vomiting) 023 Nicotine abuse 07/23/2023 Social History Tobacco Use Types Packs/Day Years Used Date Smoking Tobacco: Every Day Cigarettes 1 50 Smokeless Tobacco: Never Tobacco Cessation:Ready to Q uit: No; Counseling Given: No Alcohol Use Standard Drinks/Week Comments Never 0 (1 standard drink = 0.6 oz pur e alcohol) Interpersonal Safety Answer Date Record ed Family or friends hurt you Not on file 11/22 Family or friends insult you Not on file Family or friends threaten you Not on file 0 11/22/2023 Family or friends scream or curse at you Not on file 11/22/2023 Housing Stability Answer Date Recorded Living situation today Not on file Living situation problems Not on file 2023 Food Insecurity Answer Date Recorded Food run out past 12 months Not on file 11/04 Food did not last past 12 months Not on file 11/22/2023 Employment Answer Date Recorded Help finding and keeping a job Not on file 0 11/22/2023 Family and Community Support Answer John e Recorded Help with Day to Day Activities Not on file 11/22/2023 Feeling Lonely or Isolated Not on file 11/22 Educational Attainment Answer Date Singh rded Speak language other than Mexican at home Not on file 11/22/2023 Want help with school or training Not on file 11/22/2023 Depression Answer Date Recorded PHQ-2 Risk Not on file 11/22/2023 Disabilities Answer Date Recorded Difficulty concentrating Not on file 024 Difficulty doing errands alone Not on file 0 11/22/2023 Substance Use Answer Date Recorded Used prescription meds for non-medical reasons N ot on file 11/22/2023 Used illegal drugs past 12 months Not on file 11/22/2023 Comments No Sex and Gender Information Value Date Recorded Sex Assigned at Not on file Legal Sex Female 5:41 PM CDT Gender Identity Not on file Sexual Orientation Not on file Last Filed Vital Signs Vital Sign Reading Time Taken Comments Blood Pressure 140/68 08/23/2023 1:35 PM EDT Pulse 58 08/23/2023 1:35 PM EDT Temperature 36.6 C (97.8 F) 08/23/2023 1:09 PM EDT Respiratory Rate 16 08/23/2023 1:35 PM EDT Oxygen Saturation 98% 08/23/2023 1:35 PM EDT Inhaled Oxygen Concentration - - Weight 59 kg (130 lb) 08/23/2023 11:31 AM EDT Height 152.4 cm (5') 08/23/2023 11:31 AM EDT Body Mass Index 25.39 08/23/2023 11:31 AM EDT Plan of Treatment Not on file Medical Devices Implanted Type Area Supervisor Smoke Control Device Identifier Shelf Expiration Date Model / Serial / Lot Stent Uret Percflx + 4.8frx22 [id number] - [id number] Implanted:Qty : 1 on 07/23/2023 by Sam Hernandez MD at [facility] IMPLANTS Right: Ureter [employer] [id number] 09/20/2025 [id number] Stent Uret Percflx + [id number] - [id number] Implanted:Qty : 1 on 08/02/2023 by Sam Hernandez MD at [facility] IMPLANTS Right: Ureter [employer] [id number] 01/30/2026 [id number] / [id number] Stent Uret Percflx + 4.8frx24 [id number] - [id number] Implanted:Qty : 1 on 08/23/2023 by Sam Hernandez MD at [facility] IMPLANTS Right: Ureter [employer] [id number] 01/13/2026 [id number] / / [id number] [place] [id number] MEDICARE PART A B Care Teams Medical Insurance Claims Processor Relationship Specialty Start Date End Date Angel Torres MD [address] [place] [address] PCP - General Family Medicine 07/17/23
--- OUTSIDE RECORDS SUMMARY | 2025-04-26 11:50 | XMS_ITS | Encounter Summary ---
Author Organization [facility] [employer] Address [address] [place] [address] Care Team Providers Care Slide Maker Name Role Phone Angel Torres MD Primary Care Provider [phone] [phone] Reason for Referral * Diagnostic X-Ray (Routine) - Closed Specialty Diagnoses / Procedures Referred By Contac t Referred To Contact Diagnoses Uric acid nephrolithiasis Procedures X-ray abdomen KUB [place] [address] [place] [address]. [address] [place] [address] Phone: tel: fax: Referral ID Status Reason Start Date Expiration Date Visits Re quested Visits Authorized [id number] Closed 07/17/2023 01/13/2024 1 1 * Diagnostic X-Ray (Routine) - Closed Specialty Diagnoses / Procedures Referred By Contrayray mayberry Referred To Contact Diagnoses Uric acid nephrolithiasis Procedures X-ray [place] [address] [place] [address]. [address] [place] [address] Phone: tel: fax: Referral ID Status Reason Start Date Expiration Date Visits Re quested Visits Authorized [id number] Closed 07/17/2023 01/13/2024 1 1 Encounter Details Date Type Department Care Team (Late st Contact Info) Description 07/17/2023 Outside Orders [facility] Ad[facility] [address] [place] [address] Sam Hernandez MD [address] [place] [address]. [address] [place] [address] Uric acid nephrolithiasis (Primary Dx) Social History Tobacco Use Types Packs/Day Years Used Date Smoking Tobacco: Never Assessed Comments Unknown Sex and Gender Information Value Date Recorded Sex Assigned at Not on file Legal Sex Female 5:41 PM CDT Gender Identity Not on file Sexual Orientation Not on file COVID-19 Exposure Response Date Recorded In the last 10 days, have yo u been in contact with someone who was confirmed or suspected to have Coronavirus/COVID-19? No / Unsure 07/17/2023 3:49 PM EDT documented as of this encounter Plan of Treatment Not on file documented as of this encounter Results * X-ray chest PA and lateral (07/17/2023 4:44 PM EDT) Anatomical Region Laterality Modality Chest X-Ray 07/17/2023 5:51 PM EDT Impressions 07/17/2023 5:57 PM EDT No evidence of acute infiltrate. Images reviewed, interpreted, and dictated by Red Chacon MD Narrative 07/17/2023 5:57 PM EDT TWO-VIEW CHEST HISTORY: Kidney stones. FINDINGS: Cardiac silhouette is of normal size. Loop recording device is noted within the left hemithorax. Left shoulder prosthesis is present. Lungs are clear. Procedure Note Red Chacon MD - 07/17/2023 TWO-VIEW CHEST HISTORY: Kidney stones. FINDINGS: Cardiac silhouette is of normal size. Loop recording device is noted within the left hemithorax. Left shoulder prosthesis is present. Lungs are clear. IMPRESSION: No evidence of acute infiltrate. Images reviewed, interpreted, and dictated by Red Chacon MD us Sam Hernandez MD IMG DIAGNOSTIC IMAGING ORDERABLE S Final Result * X-ray abdomen KUB 1 view (07/17/2023 4:43 PM EDT) Anatomical Region Laterality Modality Abdomen X-Ray 07/17/2023 10:5 3 PM EDT Impressions 07/17/2023 11:02 PM EDT A 3.5 cm right renal stone, as described. Images reviewed, interpreted, and dictated by Red Chacon MD Narrative 07/17/2023 11:02 PM EDT ABDOMEN SINGLE VIEW COMPARISON: Abdomen from 09 January 2018. HISTORY: Kidney stone. FINDINGS: Single view of the abdomen demonstrates a large, lobular density in the projection of the lower pole of the right kidney. This density measures 3.5 x 2.5 cm, and is consistent with a large kidney stone, new since previous. Previously noted right ureteral stent has been removed. No left kidney stones are seen. Procedure Note Red Chacon MD - 07/17/2023 ABDOMEN SINGLE VIEW COMPARISON: Abdomen from 09 January 2018. HISTORY: Kidney stone. FINDINGS: Single view of the abdomen demonstrates a large, lobular density in the projection of the lower pole of the right kidney. This density measures 3.5 x 2.5 cm, and is consistent with a large kidney stone, new since previous. Previously noted right ureteral stent has been removed. No left kidney stones are seen. IMPRESSION: A 3.5 cm right renal stone, as described. Images reviewed, interpreted, and dictated by Red Chacon MD us Sam Hernandez MD IMG DIAGNOSTIC IMAGING ORDERABLE S Final Result * ECG 12 lead (07/17/2023 4:06 PM EDT) VENTRICULAR RATE EKG/MIN 54 BPM GE MUSE ATRIAL RATE (MCT) 54 BPM GE MUSE AK Interval 152 ms GE MUSE QRS-INTERVAL (MSEC) 72 ms GE MUSE QT Interval 438 ms GE MUSE QTC Interval 415 ms GE MUSE P [place] 64 degrees GE MUSE R AXIS (MCT) 19 degrees GE MUSE T Wave [place] 51 degrees GE MUSE [place] Diagnosis Sinus bradycardia Otherwise normal ECG No previous ECGs available Confirmed by Sesar Weston George ([id number]) on 07/22/2023 1:36:02 PM GE MUSE 07/17/2023 4:06 PM EDT 07/22/2023 1:36 PM EDT us Sam Hernandez MD ECG ORDERABLES Final Result GE MUSE * (ABNORMAL) Comprehensive metabolic panel (07/17/2023 3:58 PM EDT) Sodium 141 136 - 145 meq/L 07/17/2023 5:27 PM EDT [facility] Potassium 3.8 3.5 - 5.1 meq/L 07/17/2023 5:27 PM EDT [facility] Chloride 103 98 - 107 meq/L 07/17/2023 5:27 PM EDT [facility] CO2 27 21 - 32 meq/L 07/17/2023 5:27 PM EDT [facility] Calcium 8.9 8.5 - 10.1 mg/dL 07/17/2023 5:27 PM EDT [facility] Glucose 89 74 - 99 mg/dL 07/17/2023 5:27 PM EDT [facility] BUN 13 7 - 18 mg/dL 07/17/2023 5:27 PM EDT [facility] Creatinine 1.07(H) 0.55 - 1.02 mg/dL 07/17/2023 5:27 PM EDT [facility] Albumin 4.0 3.4 - 5.0 g/dL 07/17/2023 5:27 PM EDT [facility] Alkaline Phosphatase 110 50 - 136 U/L 07/17/2023 5:27 PM EDT [facility] ALT 23 12 - 78 U/L 07/17/2023 5:27 PM EDT [facility] AST 20 15 - 37 U/L 07/17/2023 5:27 PM EDT [facility] Total Bilirubin 0.4 0.2 - 1.0 mg/dL 07/17/2023 5:27 PM EDT [facility] Protein, Total 7.6 6.4 - 8.2 gm/dL 07/17/2023 5:27 PM EDT [facility] Anion Gap 15 07/17/2023 5:27 PM EDT [facility] Globulin 3.6 0.4 - 4.9 g/dL 07/17/2023 5:27 PM EDT [facility] Osmolality Calc 280.8 5:27 PM EDT [facility] eGFR (mL/min/1.73m2) 55(L) >=60 mL/min/1.7 3m2 07/17/2023 5:27 PM EDT [facility] Comment:ESTIMATED GFR IS NOT ACCURATE CREATININE CLEARANCE IN PREDICTING GLOMERULAR FILTRATION RATE. ESTIMATED GFR IS NOT APPLICABLE FOR DIALYSIS PATIENTS. Blood Venipuncture / Unknown 07/17/2023 3:58 PM EDT 07/17/2023 3:58 PM EDT us Sam Hernandez MD LAB BLOOD ORDERABLES Final Resul t Performing Organization Address City/State/[facility] Co de Phone Number [facility] [address] [place] [address] * (ABNORMAL) CBC with automated diff (07/17/2023 3:58 PM EDT) WBC 10.4(H) 4.0 - 10.0 K/ L 07/17/2023 5:02 PM EDT [facility] RBC 5.17 3.93 - 5.22 M/ L 07/17/2023 5:02 PM EDT [facility] Hemoglobin 15.3 11.2 - 15.7 GM/DL 07/17/2023 5:02 PM EDT [facility] Hematocrit 47.3(H) 34.1 - 44.9 % 07/17/2023 5:02 PM EDT [facility] MCV 92 79 - 95 fL 07/17/2023 5:02 PM EDT [facility] MCH 29.6 25.6 - 32.2 pg 07/17/2023 5:02 PM EDT [facility] MCHC 32.3 32.3 - 36.5 GM/DL 07/17/2023 5:02 PM EDT [facility] RDW 13.8 11.5 - 14.5 % 07/17/2023 5:02 PM EDT [facility] Platelets 348 182 - 369 K/CU MM 07/17/2023 5:02 PM EDT [facility] MPV 10.2 9.4 - 12.4 fL 07/17/2023 5:02 PM EDT [facility] Nucleated Red Blood Cell 0.0 0 - 0.2 % 07/17/2023 5:02 PM EDT [facility] % Neutros 55 42 - 75 % 07/17/2023 5:02 PM EDT [facility] % Lymphs 37 19 - 52 % 07/17/2023 5:02 PM EDT [facility] % Monos 6 5 - 13 % 07/17/2023 5:02 PM EDT [facility] % Eos 0(L) 1 - 7 % 07/17/2023 5:02 PM EDT [facility] % Baso 1 0 - 2 % 07/17/2023 5:02 PM EDT [facility] NRBC Absolute 0.00 0 - 0.12 K/ul 07/17/2023 5:02 PM EDT [facility] # Neutros 5.77 1.56 - 6.13 K/ L 07/17/2023 5:02 PM EDT [facility] # Lymphs 3.82 1.48 - 4.50 K/ L 07/17/2023 5:02 PM EDT [facility] # Monos 0.67 0.24 - 0.82 K/ L 07/17/2023 5:02 PM EDT [facility] # Eos 0.00 0.00 - 6.00 K/ L 07/17/2023 5:02 PM EDT [facility] # Baso 0.13(H) 0.01 - 0.08 K/ L 07/17/2023 5:02 PM EDT [facility] Immature Granulocytes-Re lative 0.50(H) 0.00 - 0.00 % 07/17/2023 5:02 PM EDT [facility] # IG 0.05 0.00 - 0.50 K/uL 07/17/2023 5:02 PM EDT [facility] Blood Venipuncture / Unknown 07/17/2023 3:58 PM EDT 07/17/2023 3:58 PM EDT Narrative [facility] - 07/17/2023 5:02 PM EDT When CBC w/ Auto Diff is ordered the lab will add a Manual Differential as a quality check at no additional charge if: Lymphocytes greater than seventy five percent with normal or increased WBC Monocytes greater than Fifteen percent Basophil greater than four percent Bands >10% or several immature myeloids are seen on scan Blast? Flag noted Atypical Lymph flag noted us Sam Hernandez MD LAB BLOOD ORDERABLES Final Resul t Performing Organization Address City/State/[facility] Co de Phone Number [facility] [address] [place] [address] documented in this encounter Visit Diagnoses Diagnosis Uric acid nephrolithiasis- Primary Uric acid nephrolithiasis Uric acid nephrolithiasis documented in this encounter Care Teams Slide Maker Relationship Specialty Start Date End Date Angel Torres MD [address] [place] [address] PCP - General Family Medicine 07/17/23 documented as of this encounter
--- OUTSIDE RECORDS SUMMARY | 2025-04-26 11:50 | XMS_ITS | Encounter Summary ---
Author Organization [facility] Address [address] [place] [address] Care Team Providers Care Light Fixture Servicer Name Role Phone Angel Torres MD Primary Care Provider [phone] Encounter Details Date Type Department Care Team (Late st Contact Info) Description 08/02/2023 Outside Orders [facility] Admitting [address] [place] [address] Sam Hernandez MD [address] [facility] [place], [place] [id number] Kidney stones (Primary Dx); Uric acid nephrolithiasis Social History Tobacco Use Types Packs/Day Years [...] suspected to have Coronavirus/COVID-19? No / Unsure 08/02/2023 7:40 AM EDT documented as of this encounter Plan of Treatment Not on file documented as of this encounter Results * (ABNORMAL) Comprehensive metabolic panel (08/02/2023 7:26 AM EDT) Sodium 139 136 - 145 meq/L 08/02/2023 7:50 AM [facility] Potassium 4.4 3.5 - 5.1 meq/L 08/02/2023 7:50 AM [facility] Chloride 104 98 - 107 meq/L 08/02/2023 7:50 AM [facility] CO2 27 21 - 32 meq/L 08/02/2023 7:50 AM [facility] Calcium 9.0 8.5 - 10.1 mg/dL 08/02/2023 7:50 AM [facility] Glucose 92 74 - 99 mg/dL 08/02/2023 7:50 AM [facility] BUN 26(H) 7 - 18 mg/dL 08/02/2023 7:50 AM [facility] Creatinine 1.21(H) 0.55 - 1.02 mg/dL 08/02/2023 7:50 AM [facility] Albumin 3.8 3.4 - 5.0 g/dL 08/02/2023 7:50 AM [facility] Alkaline Phosphatase 99 50 - 136 U/L 08/02/2023 7:50 AM [facility] ALT 11(L) 12 - 78 U/L 08/02/2023 7:50 AM [facility] AST 11(L) 15 - 37 U/L 08/02/2023 7:50 AM [facility] Total Bilirubin 0.6 0.2 - 1.0 mg/dL 08/02/2023 7:50 AM [facility] Protein, Total 7.6 6.4 - 8.2 gm/dL 08/02/2023 7:50 AM [facility] Anion Gap 12 08/02/2023 7:50 AM [facility] Globulin 3.8 0.4 - 4.9 g/dL 08/02/2023 7:50 AM [facility] Osmolality Calc 281.9 7:50 AM [facility] eGFR (mL/min/1.73m2) 47(L) >=60 mL/min/1.7 3m2 08/02/2023 7:50 AM EDT [facility] Comment:ESTIMATED GFR IS NOT ACCURATE CREATININE CLEARANCE IN PREDICTING GLOMERULAR FILTRATION RATE. ESTIMATED GFR IS NOT APPLICABLE FOR DIALYSIS PATIENTS. Blood Venipuncture / Unknown 08/02/2023 7:26 AM EDT 08/02/2023 7:26 AM EDT us Sam Hernandez MD LAB BLOOD ORDERABLES Final Resul t [facility] [address] [phone] documented in this encounter Visit Diagnoses Diagnosis Kidney stones- Primary Calculus of kidney Uric acid nephrolithiasis documented in this encounter Care Teams Light Fixture Servicer Relationship Specialty Start Date End Date Angel Torres MD [address] [place] [address] PCP - General Family Medicine 07/17/23 documented as of this encounter
--- OUTSIDE RECORDS SUMMARY | 2025-04-26 11:50 | XMS_ITS | Clinical Summary ---
Author Organization [facility] Address [address] [place] [address] Care Team Providers Care Group Counselor Name Role Phone Angel Torres MD Primary Care Provider [phone] [phone] Allergies Active Allergy Reactions Criticality Noted Date [...] Date Singh rded Speak language other than Dominican at home Not on file 11/22/2023 Want [...] 08/23/2023 11:31 AM EDT Plan of Treatment Health Maintenance Due Date Last Done Comments CT Colonography 1949 Colonoscopy 1949 Colorectal Cancer Screening 1949 DXA SCAN 1949 FOBT/FIT 1949 Fit-DNA (Cologuard) 1949 Sigmoidoscopy 1949 Depression Screening (12+) 1961 Hepatitis C Screening 1967 DTAP/TDAP/TD VACCINES (1 - Tdap) 1968 Pneumococcal 50+ years (1 of 2 - PCV) 1968 Shingles Vaccine (Zoster) (1 of 2) 1999 Medicare Initial AWV G0438 05/05/2015 Respiratory Syncytial Virus (RSV) Adult or (1 - 1-dose 75+ series) 2024 COVID-19 VACCINE ( - season) 07/05/202406/2021, 07/21/2021 Tobacco Cessation Counseling and Screening (12+) 08/23/2024 08/23/2023 Falls Risk Screening 11/04/2024 Influenza Vaccine (Season Ended) 2025 Medical Devices Implanted Type Area Mechanical Designer Device Identifier Shelf Expiration Date Model / Serial / Lot Stent Uret Percflx + 4.8frx22 [id number] - [id number] Implanted:Qty : 1 on 07/23/2023 by Sam Hernandez MD at [facility] IMPLANTS Right: Ureter [employer]OLOG[employer]/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 [employer] [id number] 09/20/2025 [id number] / / [id number] Stent Uret Percflx + 4.8frx24 [id number] - [id number] Implanted:Qty : 1 on 08/02/2023 by Sam Hernandez MD at [facility] IMPLANTS Right: 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
[2025-04-26 12:06] LABS: Basophils # 0.1 K/mm3 (0-0.2); Basophils % 0.9 % (0.1-2.0); Eosinophils % 0.2 % (0.1-12.0); Hematocrit 45.8 % (37.0-47.0); Hemoglobin 14.7 g/dL (12.2-16.2); Immature Granulocytes # 0.06 10^3uL; Immature Granulocytes % 0.5 %; Lymphocytes # 3.1 K/mm3 (0.7-4.5); Lymphocytes % 28.5 % (10-50); Mean Corpuscular HGB Conc 32.1 g/dL (31.8-35.4); Mean Corpuscular Hemoglobin 29.3 pg (27.0-31.2); Mean Corpuscular Volume 91.2 fl (81-99); Mean Platelet Volume 9.9 fl (7.4-10.4); Monocytes # 0.6 K/mm3 (0.1-1.0); Monocytes % 5.7 % (1.7-9.3); Neutrophils % 64.2 % (37.0-80.0); Nucleated Red Blood Cells # 0 10^3/uL; Nucleated Red Blood Cells % 0 %; Platelet Count 320 K/mm3 (142-424); Red Blood Count 5.02 M/mm3 (4.20-5.40); Red Cell Distribution Width 13.2 % (11.5-17.5); Red Cell Distribution Width-SD 44.7 fL; White Blood Count 10.9 K/mm3 (4.8-10.8)
[2025-04-26 12:46] LABS: Alanine Aminotransferase 16 U/L (12-78); Albumin Level 4.6 g/dl (3.5-5.0); Alkaline Phosphatase 76 U/L (38-126); Anion Gap 6.9 mEq/L (5-15); Aspartate Amino Transferase 28 U/L (14-36); Bilirubin,Direct 0.3 mg/dl (0.0-0.4); Bilirubin,Indirect 0.7 mg/dL (0.0-0.9); Bilirubin,Unconjugated 0.7 mg/dL (0.0-1.1); Blood Urea Nitrogen 19 mg/dl (7-17); Calcium 10.1 mg/dl (8.4-10.2); Carbon Dioxide 27 mmol/L (22.0-30.0); Chloride 106 mmol/L (98-107); Chol/HDL Ratio 3.5 (1-3.5); Cholesterol 211 mg/dl (140-200); Estimated Glomerular Filt Rate 48 ml/min (>60); GFR (African American) 59 ML/MIN (>60); Glucose 98 mg/dl (74-100); HDL Cholesterol 61 mg/dl (40-60); Potassium 4.9 mmoL/L (3.5-5.1); Sodium 135 mmol/L (136-145); Total Protein,Serum 7.3 g/dl (6.3-8.2); Triglycerides 159 mg/dl (30-150); VLDL Cholesterol 32 mg/dL (0-40)
[2025-04-26 13:17] LABS: Thyroid Stimulating Hormone 4.06 uIU/mL (0.465-4.68)
== END 2025-04-26 23:59 | disposition home or self-care (01) ==
LOC: LAB 11:47
PROVIDERS: PCP Family Medicine; Visit Provider Nurse Practitioner
DX: I10 Essential (primary) hypertension (principal)
CPT/HCPCS: 36415; 80048; 80061; 80076; 84443; 85025

== ENCOUNTER 2025-06-03 13:31 | Emergency (ER) | payer MEDICARE, SELFPAY ==
[2025-06-03 14:05] VITALS: BP 157/59; PULSE 56; RESP 16; TEMP 36.8; O2SAT 98; BMI 24.5
--- OUTSIDE RECORDS SUMMARY | 2025-06-03 14:17 | XMS_ITS | Encounter Summary ---
Author Organization [employer] ([place], [place], [place], [place]) Address [address] [place] [address] Care Team Providers Care Epic Cupid Analyst Name Role Phone Angel Torres MD Primary Care Provider [phone] Reason for Referral * Diagnostic X-Ray (Routine) - Closed Specialty Diagnoses / Procedures Referred By Ingrid t Referred To Contact Diagnoses Uric acid nephrolithiasis Procedures X-ray abdomen KUB [place] [address] [place] [address]. [address] [place] [address] Phone: tel: fax: Referral ID Status Reason Start Date Expiration Date Visits Re quested Visits Authorized [id number] Closed 07/17/2023 01/13/2024 1 1 * Diagnostic X-Ray (Routine) - Closed Specialty Diagnoses / Procedures Referred By Ingrid mayberry Referred To Contact Diagnoses Uric acid nephrolithiasis Procedures X-ray [place] [address] [place] [address]. [address] [place] [address] Phone: tel: fax: Referral ID Status Reason Start Date Expiration Date Visits Re quested Visits Authorized [id number] Closed 07/17/2023 01/13/2024 1 1 Encounter Details Date Type Department Care Team (Late st Contact Info) Description 07/17/2023 Outside Orders [facility] Admitting [address] [place] [address] Sam Hernandez MD [address] [place] [address] Uric acid nephrolithiasis (Primary Dx) Social History Tobacco Use Types Packs/Day Years Used Date Smoking Tobacco: Never Assessed Food Insecurity Answer Date Recorded Food run [...] Date Singh rded Speak language other than Samoan at home Not on file 11/22/2023 Want help with school or training Not on file 11/22/2023 Substance Use Answer Date Recorded Used prescription meds for non-medical reasons N ot on file 11/22/2023 Used illegal drugs past 12 months Not on file 11/22/2023 Comments Unknown Sex and Gender Information Value [...] ATRIAL RATE (MCT) 54 BPM GE MUSE CA Interval 152 ms GE MUSE QRS-INTERVAL (MSEC) 72 ms GE MUSE QT Interval 438 ms GE MUSE QTC Interval 415 ms GE MUSE P [place] 64 degrees GE MUSE R AXIS (MCT) 19 degrees GE MUSE T Wave [place] 51 degrees GE MUSE [place] Diagnosis Sinus bradycardia Otherwise normal ECG No previous ECGs available Confirmed by Sesar Weston George ([id number]) on 07/22/2023 1:36:02 PM GE MUSE 07/17/2023 4:06 PM EDT 07/22/2023 1:36 PM EDT us Sam Hernandez MD ECG ORDERABLES Final Result GE MUSE * (ABNORMAL) Comprehensive metabolic panel (07/17/2023 3:58 PM EDT) Pathologist [facility] Sodium 141 136 - 145 meq/L 07/17/2023 5:27 PM EDT [facility] Potassium 3.8 3.5 - 5.1 meq/L 07/17/2023 5:27 PM EDT [facility] Chloride 103 98 - 107 meq/L 07/17/2023 5:27 PM EDT [facility] CO2 27 21 - 32 meq/L 07/17/2023 5:27 PM EDT [facility] Calcium 8.9 8.5 - 10.1 mg/dL 07/17/2023 5:27 PM EDT [facility] Glucose 89 74 - 99 mg/dL 07/17/2023 5:27 PM EDT [facility] BUN 13 7 - 18 mg/dL 07/17/2023 5:27 PM EDT [facility] Creatinine 1.07(H) 0.55 - 1.02 mg/dL 07/17/2023 5:27 PM EDT [facility] Albumin 4.0 3.4 - 5.0 g/dL 07/17/2023 5:27 PM EDT [facility] Alkaline Phosphatase 110 50 - 136 U/L 07/17/2023 5:27 PM EDT [facility] ALT 23 12 - 78 U/L 07/17/2023 5:27 PM EDT [facility] AST 20 15 - 37 U/L 07/17/2023 5:27 PM EDT [facility] Total Bilirubin 0.4 0.2 - 1.0 mg/dL 07/17/2023 5:27 PM EDT [facility] Protein, Total 7.6 6.4 - 8.2 gm/dL 07/17/2023 5:27 PM EDT [facility] Anion Gap 15 07/17/2023 5:27 PM EDT [facility] Globulin 3.6 0.4 - 4.9 g/dL 07/17/2023 5:27 PM EDT [facility] Osmolality Calc 280.8 5:27 PM EDT [facility] eGFR (mL/min/1.73m2) 55(L) >=60 mL/min/1.7 3m2 07/17/2023 5:27 PM EDT [facility] Comment:ESTIMATED GFR IS NOT ACCURATE CREATININE CLEARANCE IN PREDICTING GLOMERULAR FILTRATION RATE. ESTIMATED GFR IS NOT APPLICABLE FOR DIALYSIS PATIENTS. Blood Venipuncture / Unknown 07/17/2023 3:58 PM EDT 07/17/2023 3:58 PM EDT us Sam Hernandez MD LAB BLOOD ORDERABLES Final Resul t [facility] [address] [place] [address], [facility] [phone] * (ABNORMAL) CBC with automated diff (07/17/2023 3:58 PM EDT) WBC 10.4(H) 4.0 - 10.0 K/ L 07/17/2023 5:02 PM EDT [facility] RBC 5.17 3.93 - 5.22 M/ L 07/17/2023 5:02 PM EDT [facility] Hemoglobin 15.3 11.2 - 15.7 GM/DL 07/17/2023 5:02 PM EDT [facility] Hematocrit 47.3(H) 34.1 - 44.9 % 07/17/2023 5:02 PM EDT [facility] MCV 92 79 - 95 fL 07/17/2023 5:02 PM EDT [facility] MCH 29.6 25.6 - 32.2 pg 07/17/2023 5:02 PM EDT [facility] MCHC 32.3 32.3 - 36.5 GM/DL 07/17/2023 5:02 PM EDT [facility] RDW 13.8 11.5 - 14.5 % 07/17/2023 5:02 PM EDT [facility] Platelets 348 182 - 369 K/CU MM 07/17/2023 5:02 PM EDT [facility] MPV 10.2 9.4 - 12.4 fL 07/17/2023 5:02 PM EDT [facility] Nucleated Red Blood Cell 0.0 0 - 0.2 % 07/17/2023 5:02 PM EDT [facility] % Neutros 55 42 - 75 % 07/17/2023 5:02 PM EDT [facility] % Lymphs 37 19 - 52 % 07/17/2023 5:02 PM EDT [facility] % Monos 6 5 - 13 % 07/17/2023 5:02 PM EDT [facility] % Eos 0(L) 1 - 7 % 07/17/2023 5:02 PM EDT [facility] % Baso 1 0 - 2 % 07/17/2023 5:02 PM EDT [facility] NRBC Absolute 0.00 0 - 0.12 K/ul 07/17/2023 5:02 PM EDT [facility] # Neutros 5.77 1.56 - 6.13 K/ L 07/17/2023 5:02 PM EDT [facility] # Lymphs 3.82 1.48 - 4.50 K/ L 07/17/2023 5:02 PM EDT [facility] # Monos 0.67 0.24 - 0.82 K/ L 07/17/2023 5:02 PM EDT [facility] # Eos 0.00 0.00 - 6.00 K/ L 07/17/2023 5:02 PM EDT [facility] # Baso 0.13(H) 0.01 - 0.08 K/ L 07/17/2023 5:02 PM EDT [facility] Immature Granulocytes-Re lative 0.50(H) 0.00 - 0.00 % 07/17/2023 5:02 PM EDT [facility] # IG 0.05 0.00 - 0.50 K/uL 07/17/2023 5:02 PM EDT [facility] Blood Venipuncture / Unknown 07/17/2023 3:58 PM EDT 07/17/2023 3:58 PM EDT Narrative [facility] - 07/17/2023 5:02 PM EDT [...] MD LAB BLOOD ORDERABLES Final Resul t [facility] [address] [place] [address], [facility] [phone] documented in this encounter Visit Diagnoses Diagnosis Uric acid nephrolithiasis- Primary Uric acid nephrolithiasis Uric acid nephrolithiasis documented in this encounter Care Teams Epic Cupid Analyst Relationship Specialty Start Date End Date Angel Torres MD [address] [place] [id number] PCP - General Family Medicine 07/17/23 documented as of this encounter
--- OUTSIDE RECORDS SUMMARY | 2025-06-03 14:17 | XMS_ITS | Encounter Summary ---
Author Organization [employer] ([place], [place], [place], [place]) Address [address] [place] [address] Care Team Providers Care Behavioral Health Therapist Name Role Phone Angel Torres MD Primary Care Provider [phone] Reason for Referral * Diagnostic X-Ray (Routine) - Closed Specialty Diagnoses / Procedures Referred By Contac t Referred To Contact Diagnoses Uric acid nephrolithiasis Procedures X-ray abdomen KUB 1 view Sam Hernandez MD [address] [place] [address] Phone: tel: fax: Referral ID Status Reason Start Date Expiration Date Visits Re quested Visits Authorized [id number] Closed 08/23/2023 02/19/2024 1 1 Encounter Details Date Type Department Care Team (Late st Contact Info) Description 08/23/2023 Outside Orders [facility] Admitting [address] [place] [phone] Sam Hernandez MD [address] [facility] [place] [address] Uric acid nephrolithiasis (Primary Dx) Social History Tobacco Use Types Packs/Day Years Used Date Smoking Tobacco: Every Day Cigarettes 1 50 Smokeless Tobacco: Never Alcohol Use Standard Drinks/Week Comments Never 0 (1 standard drink = 0.6 oz pur e alcohol) Food Insecurity Answer Date Recorded Food run [...] Date Singh rded Speak language other than Swedish at home Not on file 11/22/2023 Want [...] nephrolithiasis documented in this encounter Care Teams Behavioral Health Therapist Relationship Specialty Start Date End Date Angel Torres MD [address] [place] [address] PCP - General Family Medicine 07/17/23 documented as of this encounter
--- OUTSIDE RECORDS SUMMARY | 2025-06-03 14:17 | XMS_ITS | Clinical Summary ---
Author Organization [facility] Address [address] [place] [address] Care Team Providers Care Stope Miner Name Role Phone Angel Torres MD Primary Care Provider [phone] [phone] Allergies Active Allergy Reactions Criticality Noted Date Comments Sulfa Antibiotics Hives 12/26/2017 Medications HYDROcodone-indigo taminophen (NORCO) 5-325 MG per tablet Take 1 tablet by mouth Every 6 (Six) Hours As Needed for Moderate Pain . 6 tablet 12/26/2017 Active Eliquis 5 MG tablet tablet Take 1 tablet by mouth 2 (Two) Times a Day. 04/30/2024 Active Active Problems Problem Noted Date Diagnosed Date Renal calculi 12/26/2017 Graves disease 12/26/2017 Tobacco use 12/26/2017 Social History Tobacco Use Types Packs/Day Years Used Date Smoking Tobacco: Every Day Cigarettes Smokeless Tobacco: Never Tobacco Cessation:Ready to Q uit: No; Counseling Given: Yes Alcohol Use Standard Drinks/Week Comments No 0 (1 standard drink = 0.6 oz pur e alcohol) Abuse Screen Answer Date Recorded Unsafe at Home or Work/School Not on file Feels Threatened by Someone? Not on file 07/2023 Does Anyone Keep You from Co ntacting Others or Doint Things Outside the Home? Not on file 08/12/2023 Physical Sign of Abuse Present Not on file 1 Housing Stability Answer Date Recorded Current Living Arrangements Not on file 07/2023 Potentially Unsafe Housing Conditions Not on manuel e 08/12/2023 Family and Community Support Answer John e Recorded Help with Day-to-Day Activities Not on file 08/12/2023 Lonely or Isolated Not on file 08/12/2023 Employment Answer Date Recorded Do you want help finding or keeping work or a mica b? Not on file 08/12/2023 Disabilities Answer Date Recorded Concentrating, Remembering, or Making Decisions Difficulty Not on file 08/12/2023 Doing Errands Independently Difficulty Not on fi le 08/12/2023 Education Answer Date Recorded Help with school or training? Not on file Preferred Language Not on file 08/12/2023 Comments Unknown Sex and Gender Information Value Date Recorded Sex Assigned at Not on file Legal Sex Female 10:14 AM EDT Gender Identity Not on file Sexual Orientation Not on file Last Filed Vital Signs Vital Sign Reading Time Taken Comments Blood Pressure 130/64 06/17/2024 9:53 AM EDT Pulse 54 06/17/2024 9:53 AM EDT Temperature 36.6 C (97.8 F) 06/17/2024 9:53 AM EDT Respiratory Rate 16 12/26/2017 5:47 PM EST Oxygen Saturation 96% 06/17/2024 9:53 AM EDT Inhaled Oxygen Concentration - - Weight 56.2 kg (124 lb) 06/17/2024 9:53 AM EDT Height 154.9 cm (5' 0.98 ) 06/17/2024 9:53 AM ED T Body Mass Index 23.44 06/17/2024 9:53 AM EDT Plan of Treatment Health Maintenance Due Date Last Done Comments DXA SCAN 1950 Pneumococcal Vaccine 50+ (1 of 2 - PCV) 1968 TDAP/TD VACCINES (1 - Tdap) 1968 COLOGUARD 1994 COLON CANCER SCREENING 5 YEA R SIGMOIDOSCOPY 1994 COLONOSCOPY [address] CANCER SCREENING 1994 CT COLONOGRAPHY 1994 FECAL OCCULT BLOOD TEST 1994 FIT Testing (1 year) 1994 ZOSTER VACCINE (1 of 2) 1999 RSV Vaccine - Adults (1 - 1- dose 75+ series) 2024 ANNUAL WELLNESS VISIT 06/17/2024 HEPATITIS C SCREENING 06/17/2024 COVID-19 Vaccine (3 - season) 07/05/202406/2021, 07/21/2021 INFLUENZA VACCINE 08/04/2025 Medical Devices Implanted Type Area Cycle Consultant Device Identifier Shelf Expiration Date Model / Serial / Lot Stent Uretrl Polaris Ultr No Gw 5f24cm - [id number] Implanted:Qty : 1 on 12/26/2017 by Aneudy Willard MD at [facility] Implant Right: Ureter [employer] 09/16/2020 [id number] 0 / / [id number] Insurance MEDICARE A & B Advance Directives * Full Code (Latest Code Status on File) Date Activated Date Inactivated Comments 12/26/2017 6:09 AM 12/26/2017 8:42 PM Care Teams Stope Miner Relationship Specialty Start Date End Date Angel Torres MD [address] [facility] [address] [place] [address] PCP - General Family Medicine 02/25/24
--- OUTSIDE RECORDS SUMMARY | 2025-06-03 14:18 | XMS_ITS | Encounter Summary ---
Author Organization [facility] ([place], [place], [place], [place]) Address [address] [place] [address] Care Team Providers Care Sponge Buffer Name Role Phone Angel Torres MD Primary Care Provider [phone] [phone] Encounter Details Date Type Department Care Team (Late st Contact Info) Description 08/02/2023 Outside Orders [facility] Admitting [address] [place] [phone] Sam Hernandez MD [address] [facility] [place], [place] [id number] Kidney stones (Primary Dx); Uric acid nephrolithiasis [...] Date Singh rded Speak language other than Niuean at home Not on file 11/22/2023 Want [...] 136 - 145 meq/L 08/02/2023 7:50 AM EDT [facility] Potassium 4.4 3.5 - 5.1 meq/L 08/02/2023 7:50 AM EDT [facility] Chloride 104 98 - 107 meq/L 08/02/2023 7:50 AM EDT [facility] CO2 27 21 - 32 meq/L 08/02/2023 7:50 AM EDT [facility] Calcium 9.0 8.5 - 10.1 mg/dL 08/02/2023 7:50 AM EDT [facility] Glucose 92 74 - 99 mg/dL 08/02/2023 7:50 AM EDT [facility] BUN 26(H) 7 - 18 mg/dL 08/02/2023 7:50 AM EDT [facility] Creatinine 1.21(H) 0.55 - 1.02 mg/dL 08/02/2023 7:50 AM EDT [facility] Albumin 3.8 3.4 - 5.0 g/dL 08/02/2023 7:50 AM EDT [facility] Alkaline Phosphatase 99 50 - 136 U/L 08/02/2023 7:50 AM EDT [facility] ALT 11(L) 12 - 78 U/L 08/02/2023 7:50 AM EDT [facility] AST 11(L) 15 - 37 U/L 08/02/2023 7:50 AM EDT [facility] Total Bilirubin 0.6 0.2 - 1.0 mg/dL 08/02/2023 7:50 AM EDT [facility] Protein, Total 7.6 6.4 - 8.2 gm/dL 08/02/2023 7:50 AM EDT [facility] Anion Gap 12 08/02/2023 7:50 AM EDT [facility] Globulin 3.8 0.4 - 4.9 g/dL 08/02/2023 7:50 AM EDT [facility] Osmolality Calc 281.9 7:50 AM EDT [facility] eGFR (mL/min/1.73m2) 47(L) >=60 mL/min/1.7 3m2 08/02/2023 7:50 AM EDT [facility] Comment:ESTIMATED GFR IS NOT ACCURATE CREATININE CLEARANCE IN PREDICTING GLOMERULAR FILTRATION RATE. ESTIMATED GFR IS NOT APPLICABLE FOR DIALYSIS PATIENTS. Blood Venipuncture / Unknown 08/02/2023 7:26 AM EDT 08/02/2023 7:26 AM EDT us Sam Hernandez MD LAB BLOOD ORDERABLES Final Resul t [facility] [address] [place] [address], [facility] [phone] documented in this encounter Visit Diagnoses Diagnosis Kidney stones- Primary Calculus of kidney Uric acid nephrolithiasis documented in this encounter Care Teams Sponge Buffer Relationship Specialty Start Date End Date Angel Torres MD [address] [place] [address] PCP - General Family Medicine 07/17/23 documented as of this encounter
--- OUTSIDE RECORDS SUMMARY | 2025-06-03 14:18 | XMS_ITS | Referral Summary ---
Author Organization [facility] ([place], [place], [place], [place]) Address [address] [place] [address] Care Team Providers Care Associate Marketing Manager Name Role Phone Angel Torres MD Primary Care Provider [phone] [phone] Allergies Active Allergy Reactions Criticality Noted Date Comments Sulfa (Sulfonamide Antibiotics) Hives High 12/06 Medications nitrofurantoin, macrocrystal-monoh ydrate, (MACROBID) 100 MG capsule Take 1 capsule (100 mg total) by mouth 2 (two) times daily. 07/19/20 23 Active ondansetron (ZOFRAN-ODT) 8 MG disintegrating tablet Take 1 tablet (8 mg total) by mouth 3 (three) times daily. 07/17/20 Active sulfamethoxazole-t rimethoprim (BACTRIM DS) 800-160 mg per tablet Take 1 tablet (160 mg of trimethoprim total) by mouth 2 (two) times daily. Active HYDROCODONE-ACETAM INOPHEN ORAL Q6H 01/30/20 Active scopolamine (TRANSDERM-SCOP) 1 mg over 3 [...] Date Singh rded Speak language other than Burmese at home Not on file 11/22/2023 Want [...] on file Medical Devices Implanted Type Area Manager Small Business Device Identifier Shelf Expiration Date Model / Serial / Lot Stent Uret Percflx + 4.8frx22 [id number] - [id number] Implanted:Qty : 1 on 07/23/2023 by Sam Hernandez MD at [facility] IMPLANTS Right: Ureter [employer] [id number] 09/20/2025 [id number] 10 / / [id number] Stent Uret Percflx + 4.8frx24 [id number] - [id number] Implanted:Qty : 1 on 08/02/2023 by Sam Hernandez MD at [facility] IMPLANTS Right: Ureter [employer] [id number] 01/30/2026 [id number] 20 / / [id number] Stent Uret Percflx + 4.8frx24 [id number] - [id number] Implanted:Qty : 1 on 08/23/2023 by Sam Hernandez MD at [facility] IMPLANTS Right: Ureter [employer] [id number] 01/13/2026 [id number] 20 / / [id number] Insurance [place] [id number] MEDICARE PART A B Care Teams Associate Marketing Manager Relationship Specialty Start Date End Date Angel Torres MD [address] [place] [address] PCP - General Family Medicine 07/17/23
--- OUTSIDE RECORDS SUMMARY | 2025-06-03 14:18 | XMS_ITS | Clinical Summary ---
Author Organization [employer] ([place], [place], [place], [place]) Address [address] [place] [address] Care Team Providers Care Getter Filler Name Role Phone Angel Torres MD Primary Care Provider [phone] [phone] Allergies Active Allergy Reactions Criticality Noted Date Comments Sulfa (Sulfonamide Antibiotics) Hives High 12/06 Medications nitrofurantoin, macrocrystal-monoh ydrate, (MACROBID) 100 MG capsule Take 1 capsule (100 mg total) by mouth 2 (two) times daily. 07/19/20 Active ondansetron (ZOFRAN-ODT) 8 MG disintegrating tablet [...] Date Singh rded Speak language other than Maltese at home Not on file 11/22/2023 Want [...] Date Last Done Comments DXA SCAN 1949 Depression Screening (12+) 1961 Hepatitis C Screening 1967 DTAP/TDAP/TD VACCINES (1 - Tdap) 1968 Pneumococcal 50+ years (1 of 2 - PCV) 1968 Shingles Vaccine (Zoster) (1 of 2) 1999 Medicare Initial AWV G0438 05/05/2015 Respiratory Syncytial Virus (RSV) Adult or (1 - 1-dose 75+ series) 2024 COVID-19 VACCINE (3 - 2023- season) 07/05/202406/2021, 07/21/2021 Tobacco Cessation Counseling and Screening (12+) 08/23/2024 08/23/2023 Falls Risk Screening 11/04/2024 Influenza Vaccine (#1) 2025 Medical Devices Implanted Type Area Casting Molder Device Identifier Shelf Expiration Date Model / Serial / Lot Stent Uret Percflx + 4.8frx22 [id number] - [id number] Implanted:Qty : 1 on 07/23/2023 by Sam Hernandez MD at [facility] IMPLANTS Right: Ureter [employer]STA[employer] [id number] 09/20/2025 [id number] 10 / / [id number] Stent Uret Percflx + 4.8frx24 [id number] - [id number] Implanted:Qty : 1 on 08/02/2023 by Sam Hernandez MD at [facility] IMPLANTS Right: Ureter [employer]STA[employer] [id number] 01/30/2026 [id number] 20 / / [id number] Stent Uret Percflx + 4.8frx24 [id number] - [id number] Implanted:Qty : 1 on 08/23/2023 by Sam Hernandez MD at [facility] IMPLANTS Right: Ureter [employer] [id number] 01/13/2026 [id number] 20 / / [id number] Insurance MEDICARE PART A B Care Teams Getter Filler Relationship Specialty Start Date End Date Angel Torres MD [address] [place] [address] PCP - General Family Medicine 07/17/23
--- NOTE | 2025-06-03 14:46 | ED_ITS ---
Discharge Plan Disposition Patient Disposition: Home, Self-Care Condition: Good Prescriptions Prescriptions: New methocarbamol 750 mg tablet 750 mg PO HS Qty: 30 0RF acyclovir 800 mg tablet 800 mg PO 5XDAY 7 Days Qty: 35 0RF No Action Eliquis 5 mg tablet 5 mg PO BID 90 Days Qty: 180 3RF albuterol sulfate 90 mcg/actuation HFA aerosol inhaler 1 inh inhalation Q4H PRN (Reason: shortness of breath or wheezing) Qty: 8.5 0RF Referrals Follow up/Referrals: Brooklynn Torres MD [Primary Care Provider, Medical] - See instructions Activity Restrictions/Add. Instructions Additional Instructions/Restrictions: Please return to the emergency department with any worsening signs or symptoms. Please follow-up with your PCP in the upcoming days, please take all medication as prescribed. If any progression of the rash to your face or ears please return to the emergency department. Clinical Impressions Clinical Impression: Shingles rash, Degenerative disc disease, cervical Instructions Patient Instructions: Degenerative Disc Disease, DI for Shingles Print Language Print Language: Japanese Discharge ED Provider: Keith Dozier General Adult HPI <LUCY Love - Last Filed: 06/03/25 16:54> General Chief complaint: Headache Stated complaint: neck pain,rt arm pain Time Seen by Provider: 06/03/25 14:16 Mode of Arrival: Ambulatory Source of Information: Patient Description of Symptoms (Recalled from ER Triage Doc. by RN): r arm pain,radiates up her neck with a headache x3 days History of Present Illness HPI narrative: 75-year-old female presents to the emergency department with right-sided neck pain, and right-sided head pain, for the last 2 to 3 days, patient has also had some right upper extremity pain for the last 1 month describes it as a dull ache , denies any fever chills chest pain shortness of breath recent illness, no photophobia no phonophobia, denies any visual disturbance, admits to some nausea, at times, denies any vomiting, denies any abdominal pain, denies any constipation diarrhea urinary cosmetology, patient states she has some pain around her ear , as well as the right shoulder, does have history of left shoulder surgery, denies any numbness or tingling, denies any overt radicular type symptomatology, denies urinary bladder or bowel dysfunction, denies any lower lumbar spine pain, no lower extremity pain. Patient is a current smoker, denies any alcohol or drug use, other past medical history is consistent with Graves' disease, hypertension, COPD, implantable loop recorder, mitral regurgitation, patient is on anticoagulation therapy with Eliquis. Initial triage vitals are unremarkable, patient is taken ibuprofen and Tylenol with little to no relief of her symptom otology. Onset (ago): day(s) Related Data Previous Rx's ?Medication ?Instructions ?Recorded albuterol sulfate 90 mcg/actuation 1 inh inhalation Q4 H PRN shortness 01/18/25 aerosol inhaler of breath or wheezing #8.5 g anju apixaban 5 mg tablet (Eliquis) 5 mg PO BID 90 days #18 0 tabs 03/18/25 acyclovir 800 mg tablet 800 mg PO 5XDAY 7 days #35 t abs 06/03/25 methocarbamol 750 mg tablet 750 mg PO HS #30 tabs 05/06 11/28 Allergies Allergy/AdvReac Type Severity Reaction Status Date / Time Sulfa (Sulfonamide Allergy Unknown Unknown Verified 04/26/25 11:09 Antibiotics) allergy reaction [facility] <LUCY Love - Last Filed: 06/03/25 16:54> [facility] Disclaimer: The information contained in this section may have been updated after the patient was seen, as this information can be updated by other users. Medical History Mitral regurgitation Abnormal electrocardiography Family History Other No significant family history Social History Smoking Status: Current every day smoker tobacco type: cigarettes packs per day: 1 second hand exposure: Yes alcohol intake: never counseling provided: none substance use type: denies use current occupational status: retired Travel in the last 8 weeks?: Inside the [place] household members: spouse housing: house current occupational exposures/hazards: No caffeine: No Have you lived/traveled outside [place] in past 30 days?: No Contact w/someone who lives/traveled outside US past 30 days?: No Exposure to someone with infectious disease in past 14 days?: No Do you have a fever (greater than 100.4 F or 38 C)?: No Have you tested positive for COVID-19?: No Exposed to someone with COVID-19 in past 14 days?: No Do you have a sore throat?: No Do you have a cough?: No Do you have any weakness?: No Do you have any diarrhea?: No Are you experiencing any unusual bleeding?: No Do you have any muscle aches/pain?: No Do you have any abdominal pain?: Yes Are you experiencing loss of taste or smell?: No Other Medical History Have you received the Flu Vaccine for this season: No Have you received the Pneumonia Vaccine: No <LUCY Love - Last Filed: 06/03/25 16:54> ROS Obtained: Yes All systems reviewed & no additional complaints except as documented Physical Exam <LUCY Love - Last Filed: 06/03/25 16:54> General General appearance: alert and in no apparent distress Head Head exam: atraumatic and normocephalic Eye Eye exam: Present PERRL and EOMI ENT ENT exam: Present mucous membranes moist Neck Neck exam: Present normal inspection and tenderness; Absent full ROM, meningismus or lymphadenopathy Chest Chest inspection: Present normal inspection and symmetric chest wall rise Respiratory Respiratory exam: Present normal lung sounds bilaterally; Absent respiratory distress Cardiovascular Cardiovascular exam: Present regular rate and normal rhythm Abdominal Exam Abdominal exam: Present soft; Absent tenderness Extremities Exam Extremities exam: Present normal inspection Back Exam Back exam: Present tenderness and paraspinal tenderness; Absent normal inspection or vertebral tenderness Neurological Exam Neurological exam: Present alert, oriented X3 and other (Some pain limiting range of motion of the left upper extremity, 5 out of 5 strength in the right upper extremity, good ditch repairer strength bilaterally, negative Bob sign bilaterally, 5 out of 5 strength to bilateral lower extremities, no gross sensation deficit,) Psychiatric Psychiatric exam: Present normal affect Skin Skin exam: Present warm, dry, rash, erythema and other (Vesicular rash on the right side of the trapezius region, extending around the paraspinal musculature and lateral across the shoulder region) Medical Decision Making <LUCY Love - Last Filed: 06/03/25 16:54> Medical Records Medical records reviewed: Yes I reviewed the patient's medical records. Screening: Per USPSTF and CDC recommendations, given the prevalence of disease in our region, it is our hospital?s policy to screen for HIV and viral Hepatitis for all patients aged 18 and over and those with ongoing risk factors. Justin Inquiry Pt receiving controlled substance: No Justin was queried for this patient: No Vital Signs: 06/03/25 14:05 06/03/25 17:08 Temperature 98.3 F 98 F Temperature Source Oral Oral Pulse Rate 52 L Pulse Rate [Right] 56 L Respiratory Rate 16 15 Blood Pressure 155/59 H Blood Pressure [Right Arm] 157/59 H Blood Pressure Mean [Right Arm] 91 Blood Pressure Source Automatic Cuff Blood Pressure Position Sitting 02 Sat by Pulse Oximetry 98 Oxygen Delivery Method Room Air Room Air Orders (Tests/Meds): ED MEDICATIONS Discontinued Medications Generic Name Dose Route Start Last Admin Trade Name Freq PRN Reason Stop Dose Admin Hydrocodone Bitart/Acetaminophen 1 tab 06/03/25 14:59 06/03/25 15:05 Hydrocodone/Apap 5/325 Mg Tablet PO 06/03/25 15:00 1 tab ONCE ONE Administration Lidocaine 1 each 06/03/25 14:55 06/03/25 15:05 Lidocaine 5% Transdermal Patch TD 06/03/25 14:56 1 each ONCE ONE Administration Methocarbamol 750 mg 06/03/25 14:55 06/03/25 15:05 Methocarbamol 500mg Tablet PO 06/03/25 14:56 750 mg ONCE ONE Administration ORDERS Category Date Time Status CT cervical spine wo con Stat Cat Scan 06/03/25 14:[address] head/brain wo con Stat Cat Scan 06/03/25 14:54 Completed XR shoulder RT min 2V Stat Exams 06/03/25 14:59 Completed HIV Combo Stat Lab 06/03/25 14:09 Ordered Hepatitis C Ab Qual. W/ RFX Stat Lab 06/03/25 14:09 Ordered Medical Decision Narrative: 75-year-old female presents to the emergency department with right-sided neck pain headache, right arm pain and shoulder pain for several days, differential diagnose include but not limited to occipital neuralgia, tension headache, cervicalgia, cervical radiculopathy, degenerative disc disease cervical spine, cervicogenic headache, migrainous headache, traumatic SAH, acute SDH, cervical spine fracture, herpes zoster among others. I discussed this patient's case with the attending physician Obtain CT head without contrast, CT cervical spine without contrast, right shoulder x-ray for further evaluation/characterization, will give Lidoderm patch, 750 mg p.o. methocarbamol, and 5 mg p.o. Worthing[place] for pain. Reviewed the patient's CT head without contrast along the corresponding radiologic report, no acute intracranial abnormality. I reviewed the patient's right shoulder x-ray along the corresponding radiologic report, no acute osseous abnormality the right shoulder. I reviewed the patient's CT cervical spine without contrast along the corresponding radiologic report, no acute osseous abnormality of the cervical spine, degenerative disc disease, consider MRI if pain persist. Upon further reexamination of the patient, patient did have some relief from her symptomatology, will prescribe muscle relaxer as needed for pain, will also give the patient Acyclovir 800 mg p.o. 5 times daily for 7 days for shingles rash noted on the posterior neck, there is no extension into the auditory canal, or around the external ear, no concern for Bren Carbajal syndrome at this time, no other vesicles or lesions noted on the face at this time. <Keith Dozier MD - Last Filed: 06/03/25 18:42> Vital Signs: 06/03/25 14:05 06/03/25 17:08 Temperature 98.3 F 98 F Temperature Source Oral Oral Pulse Rate 52 L Pulse Rate [Right] 56 L Respiratory Rate 16 15 Blood Pressure 155/59 H Blood Pressure [Right Arm] 157/59 H Blood Pressure Mean [Right Arm] 91 Blood Pressure Source Automatic Cuff Blood Pressure Position Sitting 02 Sat by Pulse Oximetry 98 Oxygen Delivery Method Room Air Room Air Orders (Tests/Meds): ED MEDICATIONS Discontinued Medications Generic Name Dose Route Start Last Admin Trade Name Freq PRN Reason Stop Dose Admin Hydrocodone Bitart/Acetaminophen 1 tab 06/03/25 14:59 06/03/25 15:05 Hydrocodone/Apap 5/325 Mg Tablet PO 06/03/25 15:00 1 tab ONCE ONE Administration Lidocaine 1 each 06/03/25 14:55 06/03/25 15:05 Lidocaine 5% Transdermal Patch TD 06/03/25 14:56 1 each ONCE ONE Administration Methocarbamol 750 mg 06/03/25 14:55 06/03/25 15:05 Methocarbamol 500mg Tablet PO 06/03/25 14:56 750 mg ONCE ONE Administration ORDERS Category Date Time Status CT cervical spine wo con Stat Cat Scan 06/03/25 14:[address] head/brain wo con Stat Cat Scan 06/03/25 14:54 Completed XR shoulder RT min 2V Stat Exams 06/03/25 14:59 Completed HIV Combo Stat Lab 06/03/25 14:09 Ordered Hepatitis C Ab Qual. W/ RFX Stat Lab 06/03/25 14:09 Ordered Medical Decision Narrative: 75-year-old female presents to the emergency department with right-sided neck pain headache, right arm pain and shoulder pain for several days, differential diagnose include but not limited to occipital neuralgia, tension headache, cervicalgia, cervical radiculopathy, degenerative disc disease cervical spine, cervicogenic headache, migrainous headache, traumatic SAH, acute SDH, cervical spine fracture, herpes zoster among others. I discussed this patient's case with the attending physician Obtain CT head without contrast, CT cervical spine without contrast, right shoulder x-ray for further evaluation/characterization, will give Lidoderm patch, 750 mg p.o. methocarbamol, and 5 mg p.o. [place]thing[place] for pain. Reviewed the patient's CT head without contrast along the corresponding radiologic report, no acute intracranial abnormality. I reviewed the patient's right shoulder x-ray along the corresponding radiologic report, no acute osseous abnormality the right shoulder. I reviewed the patient's CT cervical spine without contrast along the corresponding radiologic report, no acute osseous abnormality of the cervical spine, degenerative disc disease, consider MRI if pain persist. Upon further reexamination of the patient, patient did have some relief from her symptomatology, will prescribe muscle relaxer as needed for pain, will also give the patient Acyclovir 800 mg p.o. 5 times daily for 7 days for shingles rash noted on the posterior neck, there is no extension into the auditory canal, or around the external ear, no concern for Bren Carbajal syndrome at this time, no other vesicles or lesions noted on the face at this time. I was consulted by the BRAYDON, and we discussed the complexity of the problems being addressed. I approve the treatment and management plan for this patient's care in the emergency department, thus performing a substantive portion of the medical decision making. Keith Dozier MD Critical Care <LUCY Love - Last Filed: 06/03/25 16:54> Critical Care Time Critical Care Time: No
--- NOTE | 2025-06-03 14:54 | CT_ITS ---
FINAL REPORT TECHNIQUE: Thin section axial images were obtained from skull base to vertex without contrast. Coronal reconstruction images were obtained from the axial data. Exam was performed using dose reduction techniques such as automated exposure control, adjustment of the mA and kV according to patient size, and use of iterative reconstruction technique. CLINICAL HISTORY: Right-sided headache/neck pain COMPARISON: None FINDINGS: There is no mass effect or midline shift. There is no hydrocephalus. There is no intracranial hemorrhage. The posterior fossa is without acute abnormality. The basilar cisterns are preserved. The soft tissues are without acute abnormality. No acute osseous abnormality is identified. IMPRESSION: No acute intracranial abnormality. Reviewed, Interpreted and Dictated by Liberty Ivory MD Transcribed by Rosemary Mackenzie Authenticated and [facility]
--- NOTE | 2025-06-03 14:55 | CT_ITS ---
FINAL REPORT TECHNIQUE: Thin section axial images were obtained through the cervical spine without contrast. Multiplanar reconstruction images were obtained from the axial data. Exam was performed using dose reduction techniques. CLINICAL HISTORY: Right-sided headache/neck pain COMPARISON: None FINDINGS: There is no acute fracture or acute malalignment of the cervical spine. There is no evidence of unilateral or bilateral facet lock. The craniocervical junction is intact. There is multilevel degenerative disc disease which is most pronounced at C5-6 and C6-7. There are several soft tissue nodules in the right parotid which are nonspecific. Remainder of the soft tissues without acute abnormality. IMPRESSION: No acute osseous abnormality of the cervical spine. Degenerative disc disease. Consider MRI if pain persists. Reviewed, Interpreted and Dictated by Liberty Ivory MD Transcribed by Rosemary Mackenzie Authenticated and [facility]
--- NOTE | 2025-06-03 14:59 | XR_ITS ---
FINAL REPORT CLINICAL HISTORY: Right shoulder pain FINDINGS: Three views of the right shoulder were obtained. There is no prior exam for comparison. There is no fracture or dislocation. The joint space is preserved. Soft tissues are unremarkable. IMPRESSION: No acute osseous abnormality of the right shoulder. Reviewed, Interpreted and Dictated by Liberty Ivory MD Transcribed by Rosemary Mackenzie Authenticated and [facility]
[2025-06-03] MEDS: LIDOCAINE 5% TRANSDERMAL PATCH 1 EACH TD (15:05)
[2025-06-03] MEDS: METHOCARBAMOL 500MG TABLET 750 MG PO (15:05)
[2025-06-03] MEDS: HYDROCODONE/APAP 5/325 MG TABLET 1 TAB PO (15:05)
[2025-06-03 17:08] VITALS: BP 155/59; PULSE 52; RESP 15; TEMP 36.6; O2SAT 97
== END 2025-06-03 17:09 | disposition home or self-care (01) ==
PROVIDERS: Emergency Provider Student in an Organized Health Care Education/Training Program; PCP Family Medicine
DX: B02.9 Zoster without complications (principal); M50.30 Other cervical disc degeneration, unspecified cervical region
CPT/HCPCS: 70450; 72125; 73030; 99284

== ENCOUNTER 2025-06-16 21:45 | Emergency (ER) | payer MEDICARE, SELFPAY ==
--- OUTSIDE RECORDS SUMMARY | 2025-05-10 10:30 | XMS_ITS ---
Author Organization [facility] Address [address] [place] [id number] Care Team Providers Care Physician Obstetrician Name Role Phone Elham Torres Primary Care Provider Arvind Anton Unavailable [phone] Allergies Allergen (clinical drug ingredient) Drug/Non Drug Allergy documented on EMR Reaction Allergy Type Onset Date Status Substance with sulfonamide structure and antibacterial mechanism of action (substance) Sulfa Antibiotics Unknown Drug Allergy Active Results Component Value Reference Range Notes CBC Venipuncture (in house) Reviewed date:05/28/2025 12:26:35 PM Interpretation:Normal Performing Lab: Notes/Report: Normal wbc 10.7 3.5 - 10 lymph 24.4% 15 - 50 mid 6.1% 2 - 15 gran 69.5% 35 - 80 rbc 5.11 3.5 - 5.5 hgb 15.5 11.5 - 16.5 hct 46.7 35 - 55 mcv 91.3 75 - 100 mch 30.4 25 - 35 mchc 33.3 31 - 38 platlet 351 100 - 400 P-Comprehensive Metabolic Pa britney (CMP) Reviewed date:05/28/2025 12:26:35 PM Interpretation:Cr 1.05, gfr 55 Performing Lab: Notes/Report: Test performed by [facility], [facility] , [address], [place] [address] Rodney Zapata MD, Grinder Setup Operator CLIA: [id number] Sodium 140 135-145 mmol/L Potassium 4.9 3.5-5.3 mmol/L Chloride 106 97-108 mmol/L CO2 24 20-32 mmol/L Glucose 89 65-99 mg/dL BUN 23 8-23 mg/dL Creatinine 1.05 0.50-1.00 mg/dL Calcium 9.9 8.6-10.4 mg/dL eGFR by Creatinine 55 >59 mL/min/1.73m2 Protein 6.7 6.0-8.3 g/dL Albumin 4.4 3.5-5.3 g/dL Alkaline Phosphatase 93 35-121 IU/L ALT (SGPT) 16 <5-47 IU/L AST (SGOT) 19 <5-40 IU/L Bilirubin, Total 0.3 <0.2-1.2 mg/dL A/G Ratio 1.9 1.1-2.5 P-TSH Reviewed date:05/28/2025 12:26:35 PM Interpretation:Normal Performing Lab: Notes/Report: Test performed by [facility], [address] , [address], [place] [address] Rodney Zapata MD, Grinder Setup Operator CLIA: [id number] TSH 1.73 0.43-5.25 mU/L REASON FOR VISIT check up, Needs labs, mammogram, bone density screening, low dose chest CT, colon cancer screening,& Prevnar vaccine Medications Medication SIG (Take, Route, Frequency, Duration) Notes Start Date End Date Status Eliquis 5 MG 1 tablet Orally Twic e a day; Duration: 30 day(s) Active Maxzide-25 37.5-25 MG 1 tablet in the mo rning Orally Once a day; Duration: 30 day(s) 10/17/2023 Not-Taking Apixaban 2.5 MG as directed Orally twice a day; Duration: 30 days 05/10/2025 Active CoQ10 200 MG as directed orally o nce a day; Duration: 30 day(s) 12/04/2021 Not-Taking Clopidogrel Bisulfate 75 MG 1 tab(s) orally once a day; Duration: 30 day(s) Not-Taking Temazepam 15 MG 1 capsule at bedtime as needed Orally Once a day 05/10/2025 Active Tamsulosin HCl 0.4 MG 1 capsule Orally O nce a day; Duration: 30 day(s) Not-Taking Rosuvastatin Calcium 20 MG 1 tab(s) orally once a day; Duration: 30 day(s) 12/04/2021 Not-Taking Problems Problem Type SNOMED Code ICD Code Onset Dates Problem Status W/U Status Risk Notes Problem Chronic fatigue syndrome (31257383) Chronic fatigue (R53.82) Active confirmed Problem Primary insomnia (2433033) Primary insomnia (F51.01) Active confirmed Problem COPD - Chronic obstructive pulmonary disease (11777478) Chronic obstructive pulmonary disease, unspecified COPD type (J44.9) Active confirmed Vital Signs Weight 130.6 lbs 05/10/2025 Blood pressure systolic 122 mm Hg 05/10/20 25 Blood pressure diastolic 70 mm Hg 025 Heart Rate 64 /min 05/10/2025 Height 61 in 05/10/2025 BMI 24.67 kg/m2 05/10/2025 Encounters Encounter Location Date Provider Diagnosis [facility] [address] [place] [id number] 05/10/2025 Elham Torres Essential hypertensi on I10 ; Splenic infarct D73.5 ; Mixed hyperlipidemia E78.2 ; Chronic fatigue R53.82 ; Primary insomnia F51.01 ; Chronic obstructive pulmonary disease, unspecified COPD type J44.9 and BMI 24.0-24.9, adult Z68.24 Assessments Encounter Date Diagnosis (ICD Code) Assessment Notes Treatment Notes Treatment Clinical Notes Section Notes 05/10/2025 Essential hypertension (ICD-10 - I10) 05/10/2025 Splenic infarct (ICD-10 - D73.5) 05/10/2025 Mixed hyperlipidemia (ICD-10 - E78.2) 05/10/2025 Chronic fatigue (ICD-10 - R53.82) 05/10/2025 Primary insomnia (ICD-10 - F51.01) 05/10/2025 Chronic obstructive pulmonary disease, unspecified COPD type (ICD-10 - J44.9) 05/10/2025 BMI 24.0-24.9, adult (ICD-10 - Z68.24) Plan Of Treatment Medication Medication Name Sig Start Date Stop Date Notes Apixaban 2.5 MG as directed Orally t wice a day; Duration: 30 days 05/10/2025 Temazepam 15 MG 1 capsule at bedtime as needed Orally Once a day 05/10/2025 Next Appt Details Follow Up: 4 Months, Reason: Provider Name:Elham Sue er, 09/13/2025 03:00:00 PM, [address], [address], [place], [place], [id number], Progress Notes * RAGHAVENDRA PATRICIOOB:[birth year] (75 yo F)Acc No.[id number]:05/10/2025 Progress Notes Patient: RAGHAVENDRA PUENTE Provider: Elham Torres M.D. :1950 A ge:74 Y S ex:Female Date:05/10/2025 Address:[address] [place], [place] [id number] Subjective: * Chief Complaints: * 1 . Check up. 2. Needs labs, mammogram, bone density screening, low dose chest CT, colon cancer screening, & Prevnar vaccine. * HPI: C ardiology: The patient is here for a check up on Hypertension and Hyperlipidemia. Pt states she is doing good except for some insomnia. Pt states she has trouble with falling asleep. Pt states she is not fasting. Says she only takes Eliquis 5mg daily. Denies : Chest Pain. D enies : Short of Breath. D enies : Dizziness. D enies : Palpitations. * ROS: D ERMATOLOGY: no R juan pablo. n o H az. G ASTROENTEROLOGY: no N ausea. n o V omiting. n o D iarrhea.? U ROLOGY: no D ifficulty urinating. n o B lood in urine. * Medical History: H ypercholestrolemia, Kidney Stones, Splenic Infarct, Tobacco abuse, 50 pack year history as of 2021. * Surgical History: T ubal , LT Shoulder Replacement , Kidney Stone 1982, Kind[place] Stone 04/13/2006, RT Ear Tube , Thyroid 04/2016, Kidney Stone Removal , Cardiac loop recorder 2021. * Hospitalization/Major Diagno stic Procedure: S ee Above . * Family History: F ather: . M other: alive. 2 brother(s) , 2 sister(s) . 1 son(s) , 2 daughter(s) . . * Social History: C URRENT TOBACCO USE S moking Status: Patient does smoke, packs per day: 1, number of cigarettes per day: 20, Since age of: 19, Smoking preference: cigarettes. C affeine: yes, frequency:. Exercise: no. Home smoke detector use: yes. Marital Status: . 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 Past smoking status: yes, PPD: 1 pkqd, years: 20,determination:. Recreational drug use: no. Alcohol: no. Sexually active: yes. Travel ouside [place]: no. * Medications: T aking Eliquis 5 MG Tablet 1 tablet Orally Twice a day , Not-Taking Maxzide-25 37.5-25 MG Tablet 1 tablet in the morning Orally Once a day , Not-Taking Tamsulosin HCl 0.4 MG Capsule 1 capsule Orally Once a day , Not-Taking Rosuvastatin Calcium 20 MG Tablet 1 tab(s) orally once a day , Not-Taking CoQ10 200 MG Capsule as directed orally once a day , Not-Taking Clopidogrel Bisulfate 75 MG Tablet 1 tab(s) orally once a day , Medication List reviewed and reconciled with the patient * Allergies: S ulfa Antibiotics. Objective: * Vitals: W t: 130.6, Temp: 98.2, BP: 122/70, HR: 64, Nurse: BEVERLY, Ht: 61, BMI:24.67. * Examination: G eneral Examination: General Appearance: N AD. H EENT: u nremarkable.?Oral cavity: n o lesions, mucosa moist and WNL, no erythema. N tal: s upple, no lymphadenopathy. C hest: n ormal shape and expansion. H eart: R SR, 136/64. L ungs: clear to auscultation. A bdomen: s oft and nontender. N eurologic Exam: I ntact, gait normal. S kin: n ormal, no rash. P eripheral pulses: n ormal. B ack: m ild dorsal kyphosis. E xtremities: n o leg edema. N tal, Thyroid : n o thyromegaly. Assessment: * Assessment: 1. E ssential hypertension - I10 (Primary) 2 . S plenic infarct - D73.5? 3. M ixed hyperlipidemia - E78.2 4 . C hronic fatigue - R53.82? 5. P rimary insomnia - F51.01 6 . C hronic obstructive pulmonary disease, unspecified COPD type - J44.9 7 . B GA 24.0-24.9, adult - Z68.24? Plan: * Treatment: Value Reference Range A /G Ratio 1.9 1.1-2.5 - * A lbumin 4.4 3.5-5.3 - g/dL * A lkaline Phosphatase 93 35-121 - IU/L * A LT (SGPT) 16 <5-47 - IU/L * A ST (SGOT) 19 <5-40 - IU/L * B ilirubin, Total 0.3 <0.2-1.2 - mg/dL * B UN 23 8-23 - mg/dL * C alcium 9.9 8.6-10.4 - mg/dL * C hloride 106 97-108 - mmol/L * C O2 24 20-32 - mmol/L * C reatinine 1.05 H 0.50-1.00 - mg/dL * G lucose 89 65-99 - mg/dL * P otassium 4.9 3.5-5.3 - mmol/L * S odium 140 135-145 - mmol/L * P rotein 6.7 6.0-8.3 - g/dL * e GFR by Creatinine 55 L >59 - mL/min/1.73m2 * Neyda Lewis 05/28/20 12:26:28 PM EDT > See phone encounter 2.?Splenic infarct? Start Apixaban Tablet, 2.5 MG, as directed, Orally, twice a day, 30 days, 60, Refills 5.??3.?Chronic fatigue?LAB: P-TSH (Collection Date & Time - 05/10/2025 02:49 PM)?Normal* Value Reference Range T SH 1.73 0.43-5.25 - mU/L * Neyda Lewis 05/28/20 12:26:28 PM EDT > See phone encounter ?LAB: CBC Venipuncture (in house) (Collection Date & Time - 05/10/2025)? Normal* Value Reference Range w bc 10.7 3.5 - 10 * l ymph 24.4% 15 - 50 * m id 6.1% 2 - 15 * g ran 69.5% 35 - 80 * r bc 5.11 3.5 - 5.5 * h gb 15.5 11.5 - 16.5 * h ct 46.7 35 - 55 * m cv 91.3 75 - 100 * m ch 30.4 25 - 35 * m chc 33.3 31 - 38 * p latlet 351 100 - 400 * Olivia Walker 05/10/2025 04: 05:31 PM EDT > Neyda Lewis 05/28/2025 12:26:28 PM EDT > See phone encounter 4.?Primary insomnia? Start Temazepam Capsule, 15 MG, 1 capsule at bedtime as needed, Orally, Once a day, 30, Refills 2. ? * Procedure Codes: G 2211 Complex e/[place] [address] CBC WITH AUTO DIFF, 42341 VENIPUNCT, ROUTINE*, G8420 BMI<30 AND >=22 CALC & DOCU, G8950 PREHTN/HTN BP DOC INDCD F/U DOC, G8752 MOST RECENT SYSTOLIC BP < 140MM HG, G8754 MOST RECENT DIASTOLIC BP < 90MM HG * Follow Up: 4 Months * Images: Billing Information: * Visit Code: 91505 Office Visit, Est Pt., Level 4. * Procedure Codes: G2211 Complex e/[place]. [address] CBC WITH AUTO DIFF. 76158 VENIPUNCT, ROUTINE*. G8420 BMI<30 AND >=22 CALC & DOCU. G8950 PREHTN/HTN BP DOC INDCD F/U DOC. G8752 MOST RECENT SYSTOLIC BP < 140MM HG. G8754 MOST RECENT DIASTOLIC BP < 90MM HG. * Electronic signature of Elham Torres MD on 06/16/2025 at 10:23 PM EDT Sign off status: Pending * Provider: Elham Torres M.D. Date: 0 05/10/2025 Generated for Leyla yancey/Tony/Shiraitting on: 0 06/16/2025 10:23 PM EDT History and Physical Notes * HPI (History of Present Illness) Category Sub-Category Detail Notes Category Not es Cardiology Short of Breath Chest Pain Palpitations Dizziness Examination Category Sub-Category Detail Notes Category Not es General Examination HEENT: unremarkable Neck, Thyroid : no thyromegaly Heart: RSR, 136/64 Lungs: clear to auscultatio n Abdomen: soft and nontender Extremities: no leg edema General Appearance: NAD Skin: normal, no rash Neurologic Exam: Intact, gait normal Neck: supple, no lymphaden opathy Oral cavity: no lesions, mucosa m oist and WNL, no erythema Peripheral pulses: normal Back: mild dorsal kyphosis Chest: normal shape and exp ansion
--- OUTSIDE RECORDS SUMMARY | 2025-05-18 07:13 | XMS_ITS ---
Author [facility] Address [address] [place] [id number] Care Team Providers Care Two Needle Machine Operator Name Role Phone Elham Torres Primary Care Provider Arvind Anton Unavailable [phone] REASON FOR VISIT due dexa, col Encounters Encounter Location Date Provider Diagnosis Syl [address] [facility] [address] [facility] [address] [place] [id number] 05/18/2025 Elham Torres Screening for osteoporosis Z13.820 Assessments Encounter Date Diagnosis (ICD Code) Assessment Notes Treatment Notes Treatment Clinical Notes Section Notes 05/18/2025 Screening for osteoporosis (ICD-10 - Z13.820) Plan Of Treatment Pending Test Test Name Order Date Bone density 05/18/2025 Next Appt Details Provider Name:Elham Sue er, 09/13/2025 03:00:00 PM, [address] [facility] [address] [facility], [address], [place], [id number], Progress Notes * RAGHAVENDRA PATRICIOOB:[birth year] (75 yo F)Acc No.[id number]:05/18/2025 Patient: RAGHAVENDRA PUENTE :1950 A ge:74 Y S ex:Female Address:[address] [place] [address] [facility] [place] [id number] Subjective: * Chief Complaints: * D ue dexa, col * Medical History: * Surgical History: * Hospitalization/Major Diagno stic Procedure: * Medications: Objective: * Vitals: * Physical Examination: Assessment: * Assessment: 1. S creening for osteoporosis - Z13.820 (Primary) Plan: * Treatment: * Procedure Codes: * true * Date: Generated for Leyla yancey/Tony/Tram on: 0 06/16/2025 10:23 PM EDT
--- OUTSIDE RECORDS SUMMARY | 2025-06-05 11:13 | XMS_ITS ---
[facility] Address [address] [place] [address] [place] [phone] Care Team Providers Care Chief Sales Officer Name Role Phone Elham Torres Primary Care Provider Arvind Anton [phone] Medications Medication SIG (Take, Route, Frequency, Duration) Notes Start Date End Date Status oxyCODONE-Acetaminophen 5-325 MG 1 tablet as needed Orally every 6 hrs as needed; Duration: 7 days 06/05/2025 Active Encounters Encounter Location Date Provider Diagnosis [place] [address] [place] [phone] 06/05/2025 Elham Torres Varicella zoster B02.9 Assessments Encounter Date Diagnosis (ICD Code) Assessment Notes Treatment Notes Treatment Clinical Notes Section Notes 06/05/2025 Varicella zoster (ICD-10 - B02.9) Plan Of Treatment Medication Medication Name Sig Start Date Stop Date Notes oxyCODONE-Acetaminophen 5-32 5 MG 1 tablet as needed Orally every 6 hrs as needed; Duration: 7 days 06/05/2025 Next Appt Details Provider Name:Elham Sue er, 09/13/2025 03:00:00 PM, [address], [address], [place], [phone], Progress Notes * RAGHAVENDRA PATRICIOOB:[birth year] (75 yo F)Acc No.[id number]:06/05/2025 Patient: NINI PUENTEANA MARIA JOE :1950 A ge:75 Y S ex:Female Address:[address] [place] [address] [place] [id number] * Refills Start oxyCODONE-Acetaminophen Tablet, 5-325 MG, Orally, 30, 1 tablet as needed, every 6 hrs as needed, 7 days, Refills=0 Subjective: * Chief Complaints: * * Medical History: * Surgical History: * Hospitalization/Major Diagno stic Procedure: * Medications: Objective: * Vitals: * Physical Examination: Assessment: * Assessment: 1. V aricella zoster - B02.9 (Primary) Plan: * Treatment: * Procedure Codes: * true * Date: Generated for Leyla yancey/Tony/Landonsmitting on: 0 06/16/2025 10:23 PM EDT
--- OUTSIDE RECORDS SUMMARY | 2025-06-16 22:23 | XMS_ITS | Encounter Summary ---
Author Organization [employer] ([place], [place], [place], [place]) Address [address] [place] [address] Care Team Providers Care Dental Director Name Role Phone Angel Torres MD Primary Care Provider +1 [phone] Reason for Referral * Diagnostic X-Ray (Routine) - Closed Specialty Diagnoses / Procedures Referred By Ingrid t Referred To Contact Diagnoses Uric acid nephrolithiasis Procedures X-ray abdomen KUB 1 [place] [address] [place] [address]. [address] [place] [address] Phone: tel: fax: Referral ID Status Reason Start Date Expiration Date Visits Re quested Visits Authorized [id number] Closed 07/17/2023 01/13/2024 1 1 * Diagnostic X-Ray (Routine) - Closed Specialty Diagnoses / Procedures Referred By Ingrid mayberry Referred To Contact Diagnoses Uric acid nephrolithiasis Procedures X-ray chest [place] [address] [place] [address]. [address] [place] [address] Phone: tel: fax: Referral ID Status Reason Start Date Expiration Date Visits Re quested Visits Authorized [id number] Closed 07/17/2023 01/13/2024 1 1 Encounter Details Date Type Department Care Team (Late st Contact Info) Description 07/17/2023 Outside Orders [facility] Admitting [address] [place] [address] Sam Hernandez MD [address] [place] [address] Uric acid nephrolithiasis (Primary Dx) [...] Date Singh rded Speak language other than Citizen Of [place] at home Not on file 11/22/2023 Want [...] ATRIAL RATE (MCT) 54 BPM GE MUSE [place] Interval 152 ms GE MUSE QRS-INTERVAL (MSEC) 72 ms GE MUSE QT Interval 438 ms GE MUSE QTC Interval 415 ms GE MUSE P Freeman 64 degrees GE MUSE R AXIS (MCT) 19 degrees GE MUSE T Wave Freeman 51 degrees GE MUSE [place] Diagnosis Sinus bradycardia Otherwise normal ECG No previous ECGs available Confirmed by Sesar Weston George ([id number]) on 07/22/2023 1:36:02 PM GE MUSE 07/17/2023 4:06 PM EDT 07/22/2023 1:36 PM EDT us Sam Hernandez MD ECG ORDERABLES Final Result GE MUSE * (ABNORMAL) Comprehensive metabolic panel (07/17/2023 3:58 PM EDT) Pathologist [facility] Sodium 141 136 - 145 meq/L 07/17/2023 5:27 PM EDT [facility] Potassium 3.8 3.5 - 5.1 meq/L 07/17/2023 5:27 PM EDT [facility] Chloride 103 98 - 107 meq/L 07/17/2023 5:27 PM EDT [facility] CO2 27 21 - 32 meq/L 07/17/2023 5:27 PM EDT [facility] Calcium 8.9 8.5 - 10.1 mg/dL 07/17/2023 5:27 PM EDT [facility] Glucose 89 74 - 99 mg/dL 07/17/2023 5:27 PM EDT [facility] BUN 13 7 - 18 mg/dL 07/17/2023 5:27 PM EDT [facility] Creatinine 1.07(H) 0.55 - 1.02 mg/dL 07/17/2023 5:27 PM EDT [facility] Albumin 4.0 3.4 - 5.0 g/dL 07/17/2023 5:27 PM EDT [facility] Alkaline Phosphatase 110 50 - 136 U/L 07/17/2023 5:27 PM EDT [facility] ALT 23 12 - 78 U/L 07/17/2023 5:27 PM EDT [facility] AST 20 15 - 37 U/L 07/17/2023 5:27 PM EDT [facility] Total Bilirubin 0.4 0.2 - 1.0 mg/dL 07/17/2023 5:27 PM EDT [facility] Protein, Total 7.6 6.4 - 8.2 gm/dL 07/17/2023 5:27 PM EDT [facility] Anion Gap 15 07/17/2023 5:27 PM EDT [facility] Globulin 3.6 0.4 - 4.9 g/dL 07/17/2023 5:27 PM EDT [facility] Osmolality Calc 280.8 5:27 PM EDT [facility] eGFR (mL/min/1.73m2) 55(L) >=60 mL/min/1.7 3m2 07/17/2023 5:27 PM EDT [facility] Comment:ESTIMATED GFR IS NOT ACCURATE CREATININE CLEARANCE IN PREDICTING GLOMERULAR FILTRATION RATE. ESTIMATED GFR IS NOT APPLICABLE FOR DIALYSIS PATIENTS. Blood Venipuncture / Unknown 07/17/2023 3:58 PM EDT 07/17/2023 3:58 PM EDT us Sam Hernandez MD LAB BLOOD ORDERABLES Final Resul t [facility] [address] [place] [address], [facility] [phone] * (ABNORMAL) CBC with automated diff (07/17/2023 3:58 PM EDT) WBC 10.4(H) 4.0 - 10.0 K/ L 07/17/2023 5:02 PM EDT [facility] RBC 5.17 3.93 - 5.22 M/ L 07/17/2023 5:02 PM EDT [facility] Hemoglobin 15.3 11.2 - 15.7 GM/DL 07/17/2023 5:02 PM EDT [facility] Hematocrit 47.3(H) 34.1 - 44.9 % 07/17/2023 5:02 PM EDT [facility] MCV 92 79 - 95 fL 07/17/2023 5:02 PM EDT [facility] MCH 29.6 25.6 - 32.2 pg 07/17/2023 5:02 PM EDT [facility] MCHC 32.3 32.3 - 36.5 GM/DL 07/17/2023 5:02 PM EDT [facility] RDW 13.8 11.5 - 14.5 % 07/17/2023 5:02 PM EDT [facility] Platelets 348 182 - 369 K/CU MM 07/17/2023 5:02 PM EDT [facility] MPV 10.2 9.4 - 12.4 fL 07/17/2023 5:02 PM EDT [facility] Nucleated Red Blood Cell 0.0 0 - 0.2 % 07/17/2023 5:02 PM EDT [facility] % Neutros 55 42 - 75 % 07/17/2023 5:02 PM EDT [facility] % Lymphs 37 19 - 52 % 07/17/2023 5:02 PM EDT [facility] % Monos 6 5 - 13 % 07/17/2023 5:02 PM EDT [facility] % Eos 0(L) 1 - 7 % 07/17/2023 5:02 PM EDT [facility] % Baso 1 0 - 2 % 07/17/2023 5:02 PM EDT [facility] NRBC Absolute 0.00 0 - 0.12 K/ul 07/17/2023 5:02 PM EDT [facility] # Neutros 5.77 1.56 - 6.13 K/ L 07/17/2023 5:02 PM EDT [facility] # Lymphs 3.82 1.48 - 4.50 K/ L 07/17/2023 5:02 PM EDT [facility] # Monos 0.67 0.24 - 0.82 K/ L 07/17/2023 5:02 PM EDT [facility] # Eos 0.00 0.00 - 6.00 K/ L 07/17/2023 5:02 PM EDT [facility] # Baso 0.13(H) 0.01 - 0.08 K/ L 07/17/2023 5:02 PM EDT [facility] Immature Granulocytes-Re lative 0.50(H) 0.00 - 0.00 % 07/17/2023 5:02 PM EDT [facility] # IG 0.05 0.00 - 0.50 K/uL 07/17/2023 5:02 PM EDT [facility] Blood Venipuncture / Unknown 07/17/2023 3:58 PM EDT 07/17/2023 3:58 PM EDT Narrative [facility] - 07/17/2023 5:02 PM [...] MD LAB BLOOD ORDERABLES Final Resul t [facility] [address] [place] [address], [facility] [phone] documented in this encounter Visit Diagnoses Diagnosis Uric acid nephrolithiasis- Primary Uric acid nephrolithiasis Uric acid nephrolithiasis documented in this encounter Care Teams Dental Director Relationship Specialty Start Date End Date Angel Torres MD [address] [place] [id number] PCP - General Family Medicine 07/17/23 documented as of this encounter
--- OUTSIDE RECORDS SUMMARY | 2025-06-16 22:23 | XMS_ITS | Encounter Summary ---
Author Organization [employer] ([place], [place], [place], [place]) Address [address] [place] [address] Care Team Providers Care Chair Pad Maker Name Role Phone Angel Torres MD Primary Care Provider [phone] [phone] Encounter Details Date Type Department Care Team (Late st Contact Info) Description 08/02/2023 Outside Orders [facility] Admitting [address] [place] [address] Sam Hernandez MD [address] [facility]. [address] [place], [place] [id number] Kidney stones (Primary Dx); Uric acid nephrolithiasis [...] Date Singh rded Speak language other than Qatari at home Not on file 11/22/2023 Want [...] - 145 meq/L 08/02/2023 7:50 AM EDT [facility] Potassium 4.4 3.5 - 5.1 meq/L 08/02/2023 7:50 AM EDT [facility] Chloride 104 98 - 107 meq/L 08/02/2023 7:50 AM EDT [facility] CO2 27 21 - 32 meq/L 08/02/2023 7:50 AM EDT [facility] Calcium 9.0 8.5 - 10.1 mg/dL 08/02/2023 7:50 AM EDT [facility] Glucose 92 74 - 99 mg/dL 08/02/2023 7:50 AM EDT [facility] BUN 26(H) 7 - 18 mg/dL 08/02/2023 7:50 AM EDT [facility] Creatinine 1.21(H) 0.55 - 1.02 mg/dL 08/02/2023 7:50 AM EDT [facility] Albumin 3.8 3.4 - 5.0 g/dL 08/02/2023 7:50 AM EDT [facility] Alkaline Phosphatase 99 50 - 136 U/L 08/02/2023 7:50 AM EDT [facility] ALT 11(L) 12 - 78 U/L 08/02/2023 7:50 AM EDT [facility] AST 11(L) 15 - 37 U/L 08/02/2023 7:50 AM EDT [facility] Total Bilirubin 0.6 0.2 - 1.0 mg/dL 08/02/2023 7:50 AM EDT [facility] Protein, Total 7.6 6.4 - 8.2 gm/dL 08/02/2023 7:50 AM EDT [facility] Anion Gap 12 08/02/2023 7:50 AM EDT [facility] Globulin 3.8 0.4 - 4.9 g/dL 08/02/2023 7:50 AM EDT [facility] Osmolality Calc 281.9 7:50 AM EDT [facility] eGFR (mL/min/1.73m2) 47(L) >=60 mL/min/1.7 3m2 08/02/2023 7:50 AM EDT [facility] Comment:ESTIMATED GFR IS NOT ACCURATE CREATININE CLEARANCE IN PREDICTING GLOMERULAR FILTRATION RATE. ESTIMATED GFR IS NOT APPLICABLE FOR DIALYSIS PATIENTS. Blood Venipuncture / Unknown 08/02/2023 7:26 AM EDT 08/02/2023 7:26 AM EDT us Sam Hernandez MD LAB BLOOD ORDERABLES Final Resul t [facility] [address] [place] [address], [facility] [phone] documented in this encounter Visit Diagnoses Diagnosis Kidney stones- Primary Calculus of kidney Uric acid nephrolithiasis documented in this encounter Care Teams Chair Pad Maker Relationship Specialty Start Date End Date Angel Torres MD [address] [place] [address] PCP - General Family Medicine 07/17/23 documented as of this encounter
--- OUTSIDE RECORDS SUMMARY | 2025-06-16 22:23 | XMS_ITS | Referral Summary ---
Author Organization [employer] ([place], [place], [place], [place]) Address [address] [place] [address] Care Team Providers Care Gang Bore Operator Name Role Phone Angel Torres MD Primary Care Provider [phone] [phone] Allergies Active Allergy Reactions Criticality Noted Date [...] Date Singh rded Speak language other than Tristanian at home Not on file 11/22/2023 Want [...] on file Medical Devices Implanted Type Area Fishing Accessories Maker Device Identifier Shelf Expiration Date Model / Serial / Lot Stent Uret Percflx + 4.8frx22 [id number] - [id number] Implanted:Qty : 1 on 07/23/2023 by Sam Hernandez MD at [facility] IMPLANTS Right: Ureter [employer]STEAMB[employer]ER [employer] [id number] 09/20/2025 [id number] 10 / / [id number] Stent Uret Percflx + 4.8frx24 [id number] - [id number] Implanted:Qty : 1 on 08/02/2023 by Sam Hernandez MD at [facility] IMPLANTS Right: Ureter [employer]STEAMB[employer]ER [employer] [id number] 01/30/2026 [id number] 20 / / [id number] Stent Uret Percflx + 4.8frx24 [id number] - [id number] Implanted:Qty : 1 on 08/23/2023 by Sam Hernandez MD at [facility] IMPLANTS Right: Ureter [employer]STEAM[employer] [id number] 01/13/2026 [id number] 20 / / [id number] Insurance [place] [id number] MEDICARE PART A B Care Teams Gang Bore Operator Relationship Specialty Start Date End Date Angel Torres MD [address] [place] [address] PCP - General Family Medicine 07/17/23
--- OUTSIDE RECORDS SUMMARY | 2025-06-16 22:23 | XMS_ITS | Encounter Summary ---
Author Organization [employer] ([place], [place], [place], [place]) Address [address] [place] [address] Care Team Providers Care Planogrammer Name Role Phone Angel Torres MD Primary Care Provider [phone] [phone] Reason for Referral * Diagnostic X-Ray (Routine) - Closed Specialty Diagnoses / Procedures Referred By Contac t Referred To Contact Diagnoses Uric acid nephrolithiasis Procedures X-ray abdomen KUB 1 view Sam Hernandez MD [address] [place] [address] Phone: tel: fax: Referral ID Status Reason Start Date Expiration Date Visits Re quested Visits Authorized [id number] Closed 08/23/2023 02/19/2024 1 1 Encounter Details Date Type Department Care Team (Late st Contact Info) Description 08/23/2023 Outside Orders [facility] Admitting [address] [place] [phone] Sam Hernandez MD [address] [facility] [place] [address] Uric acid nephrolithiasis (Primary Dx) [...] Date Singh rded Speak language other than Namibian at home Not on file 11/22/2023 Want [...] nephrolithiasis documented in this encounter Care Teams Planogrammer Relationship Specialty Start Date End Date Angel Torres MD [address] [place] [address] PCP - General Family Medicine 07/17/23 documented as of this encounter
--- OUTSIDE RECORDS SUMMARY | 2025-06-16 22:23 | XMS_ITS | Clinical Summary ---
Author Organization [facility] Address [address] [place] [address] Care Team Providers Care Account Services Specialist Name Role Phone Angel Torres MD Primary Care Provider +1 -[phone] Allergies Active Allergy Reactions Criticality Noted Date [...] VACCINE 08/04/2025 Medical Devices Implanted Type Area Drill Grinder Device Identifier Shelf Expiration Date Model / Serial / Lot Stent Uretrl Polaris Ultr No Gw 5f24cm - [id number] Implanted:Qty : 1 on 12/26/2017 by Aneudy Willard MD at [facility] Implant Right: Ureter [employer] 09/16/2020 [id number] 0 / / [id number] Insurance MEDICARE A & B Advance Directives * Full Code (Latest Code Status on File) Date Activated Date Inactivated Comments 12/26/2017 6:09 AM 12/26/2017 8:42 PM Care Teams Account Services Specialist Relationship Specialty Start Date End Date Angel Torres MD [address] [facility] [address] [place] [address] PCP - General Family Medicine 02/25/24
--- OUTSIDE RECORDS SUMMARY | 2025-06-16 22:23 | XMS_ITS | Patient Health Record ---
Author Organization [facility] Address [address] [facility] [address] [place] [id number] Care Team Providers Care Corporate Librarian Name Role Phone Elham Torres Primary Care Provider Arvind Anton Unavailable [phone] Allergies Allergen (clinical drug ingredient) Drug/Non Drug [...] 55 Performing Lab: Notes/Report: Test performed by [facility], [employer] [facility] , [address], [place] [address] Rodney Zapata MD, Screed Person CLIA: [id number] Sodium 140 135-145 mmol/L Potassium 4.9 3.5-5.3 [...] Interpretation:Normal Performing Lab: Notes/Report: Test performed by [facility], [address] , [place] [address] Rodney Zapata MD, Screed Person CLIA: [id number] TSH 1.73 0.43-5.25 mU/L Medications Medication SIG (Take, Route, Frequency, Duration) Notes Start Date End Date Status Eliquis 5 MG 1 tablet Orally Twic e a day; Duration: 30 day(s) Active Maxzide-25 37.5-25 MG 1 tablet in the mo rning Orally Once a day; Duration: 30 day(s) 10/17/2023 Not-Taking oxyCODONE-Acetaminophen 5-325 MG 1 tablet as needed Orally every 6 hrs as needed; Duration: 7 days 06/05/2025 Active Apixaban 2.5 MG as directed Orally twice a day; Duration: 30 days 05/10/2025 Active Temazepam 15 MG 1 capsule at bedtime as needed Orally Once a day 05/10/2025 Active Tamsulosin HCl 0.4 MG 1 capsule Orally O nce a day; Duration: 30 day(s) Not-Taking Rosuvastatin Calcium 20 MG 1 tab(s) orally once a day; Duration: 30 day(s) 12/04/2021 Not-Taking CoQ10 200 MG as directed orally o nce a day; Duration: 30 day(s) 12/04/2021 Not-Taking Clopidogrel Bisulfate 75 MG 1 tab(s) orally once a day; Duration: 30 day(s) Not-Taking Immunizations Vaccine Route Administration Date Status Comme nts COVID 19 Pfizer Unknown 07/21/2021 Administered COVID 19 Pfizer Unknown 08/11/2021 Administered Problems Problem Type SNOMED Code ICD Code Onset Dates Problem Status W/U Status Risk Notes Problem Hyperlipidemia (85650367) Hyperlipidemia (272.4) Active confirmed Problem Tremor (68399729) Tremor (781.0) Active confirm ed Problem Tobacco abuse (4538530350) Tobacco abuse (Z72.0) Active confirmed Problem Essential hypertension (62729399) Essential hypertension (I10) Active confirmed Problem Mixed hyperlipidemia (534361380) Mixed hyperlipidemia (E78.2) Active confirmed Problem Hyperlipidemia (10533963) Other hyperlipidemia (E78.4) Active confirmed Problem Primary insomnia (7611117) Primary insomnia (F51.01) Active confirmed Problem Xanthoma of right eyelid (disorder) (791148490927079) Xanthelasma of right eye, unspecified eyelid (H02.63) Active confirmed Problem Xanthelasma of left eye, unspecified eyelid (H02.66) Active confirmed Problem Hyperlipidemia (22836547) Hyperlipidemia, unspecified (E78.5) Active confirmed Problem Thyroid nodule (615048778) Thyroid nodule (E04.1) Active confirmed Problem Chronic fatigue syndrome (10839443) Chronic fatigue (R53.82) Active confirmed Problem COPD - Chronic obstructive pulmonary disease (80520826) Chronic obstructive pulmonary disease, unspecified COPD type (J44.9) Active confirmed Problem Bruit of left carotid artery (R09.89) Active confirmed Problem Kidney stone (50308522) Renal lithiasis (N20.0) Active confirmed Problem Infarction of spleen (50434039) 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) Active confirmed Vital Signs Heart Rate 64 /min 05/10/2025 Blood pressure diastolic 70 mm Hg 05/10/2025 Height 61 in 05/10/2025 Blood pressure systolic 122 mm Hg 05/10/2025 Weight 130.6 lbs 05/10/2025 BMI 24.67 kg/m2 05/10/2025 Encounters Encounter Location Date Provider Diagnosis [facility] [address] [facility] [address] [place], [place] [address] [id number] 05/10/2025 Elham Torres Essential hypertensi on I10 ; Splenic infarct D73.5 ; Mixed hyperlipidemia E78.2 ; Chronic fatigue R53.82 ; Primary insomnia F51.01 ; Chronic obstructive pulmonary disease, unspecified COPD type J44.9 and BMI 24.0-24.9, adult Z68.24 [facility] [address] [facility] [address] [facility] [address] [place] [id number] 04/16/2025 Elham Torres [facility] [address] [facility] [address] [facility] [address] [place] [id number] 05/18/2025 Elham Torres Screening for osteoporosis Z13.820 [facility] [address] [facility] [address] [facility] [address] [place] [id number] 05/28/2025 Elham Torres [facility] [address] [facility] [address] [facility] [address] [place] [id number] 06/05/2025 Elham Torres Varicella zoster B02 .9 Assessments Encounter Date Diagnosis (ICD Code) Assessment Notes Treatment Notes Treatment Clinical Notes Section Notes 05/10/2025 Essential hypertension (ICD-10 - I10) 05/10/2025 Splenic infarct (ICD-10 - D73.5) 05/18/2025 Screening for osteoporosis (ICD-10 - Z13.820) 06/05/2025 Varicella zoster (ICD-10 - B02.9) 05/10/2025 Mixed hyperlipidemia (ICD-10 - E78.2) 05/10/2025 Chronic fatigue (ICD-10 - R53.82) 05/10/2025 Primary insomnia (ICD-10 - F51.01) 05/10/2025 Chronic obstructive pulmonary disease, unspecified COPD type (ICD-10 - J44.9) 05/10/2025 BMI 24.0-24.9, adult (ICD-10 - Z68.24) Plan Of Treatment Pending Test Test Name Order Date Bone density 05/18/2025 Next Appt Details Provider Name:Elham Erniejuanjo Sue er, 09/13/2025 03:00:00 PM, [address] [facility] [address], [facility] [place], [id number], Insurance Providers Payer Name Payer Address Payer Phone Subscriber Number Group Number Insured Name Patient Relationship to Insured Coverage Start Date Coverage End Date [employer] (MEDICARE) [address] [address] [place] [address] [phone] [id number] RAGHAVENDRA PATRICIO Self - patient is the insured MEDICARE PART B [address] [address] [place] [id number] [phone] [id number] RAGHAVENDRA PATRICIO Self - patient is the insured Medical (General) History Medical History History ICD Code Hypercholestrolemia Kidney Stones Splenic Infarct tobacco abuse, 50 pack year history as o f 2021 Surgical History Surgery Date(Month/Year) Tubal LT Shoulder Replacement Kidney Stone 1982 Kind[facility] Stone 04/13/2006 RT Ear Tube Thyroid 04/2016 Kidney Stone Removal Cardiac loop recorder 2021 Hospitalization History Reason Date(Month/Year) See Above
--- OUTSIDE RECORDS SUMMARY | 2025-06-16 22:23 | XMS_ITS | Clinical Summary ---
Author Organization [employer] ([place], [place], [place], [place]) Address [address] [place] [address] Care Team Providers Care Medical Surgery Nurse Name Role Phone Angel Torres MD Primary Care Provider [phone] [phone] Allergies Active Allergy Reactions Criticality Noted Date [...] Date Singh rded Speak language other than [place] at home Not on file 11/22/2023 Want [...] (#1) 2025 Medical Devices Implanted Type Area Tree Feller Operator Device Identifier Shelf Expiration Date Model / Serial / Lot Stent Uret Percflx + 4.8frx22 [id number] - [id number] Implanted:Qty : 1 on 07/23/2023 by Sam Hernandez MD at [facility] IMPLANTS Right: Ureter [employer]SHIP CONSTRUCTION TEACHER [employer] [id number] 09/20/2025 [id number] 10 / / [id number] Stent Uret Percflx + 4.8frx24 [id number] - [id number] Implanted:Qty : 1 on 08/02/2023 by Sam Hernandez MD at [facility] IMPLANTS Right: Ureter [employer]SHIP CONSTRUCTION TEACHER [employer] [id number] 01/30/2026 [id number] 20 / / [id number] Stent Uret Percflx + 4.8frx24 [id number] - [id number] Implanted:Qty : 1 on 08/23/2023 by Sam Hernandez MD at [facility] IMPLANTS Right: Ureter [employer]SH[employer] CONSTRUCTION TEACHER ECOLOG[employer] [id number] 01/13/2026 [id number] 20 / / [id number] Insurance MEDICARE PART A B Care Teams Medical Surgery Nurse Relationship Specialty Start Date End Date Angel Torres MD [address] [place] [address] PCP - General Family Medicine 07/17/23
[2025-06-16 22:25] VITALS: BP 158/69; PULSE 81; RESP 22; TEMP 36.9; O2SAT 99; BMI 24.5
--- NOTE | 2025-06-16 22:58 | CT_ITS ---
PROCEDURE INFORMATION: Exam: CTA Neck With Contrast Exam date and time: 06/16/2025 11:29 PM Age: 75 years old Clinical indication: Other: Rue weakness TECHNIQUE: Imaging protocol: Computed tomographic angiography of the neck with contrast. Exam focused on the cervical segments of the vasculature. 3D rendering (Not supervised by radiologist): MIP and/or 3D reconstructed images were created by the technologist. Radiation optimization: All CT scans at this facility use at least one of these dose optimization techniques: automated exposure control; mA and/or kV adjustment per patient size (includes targeted exams where dose is matched to clinical indication); or iterative reconstruction. Contrast material: ISO; Contrast volume: 80 ml; Contrast route: INTRAVENOUS (IV); COMPARISON: CT CERVICAL SPINE WO CON 06/03/2025 3:22 PM FINDINGS: Right common carotid artery: No stenosis. No dissection or occlusion. Right internal carotid artery: No stenosis of the extracranial segment. No dissection or occlusion. Right external carotid artery: No occlusion or stenosis of the origin. Left common carotid artery: No stenosis. No dissection or occlusion. Left internal carotid artery: No stenosis of the extracranial segment. No dissection or occlusion. Left external carotid artery: No occlusion or stenosis of the origin. Right vertebral artery: No stenosis. No dissection or occlusion. Left vertebral artery: No stenosis. No dissection or occlusion. Aorta: Minimal atherosclerosis of the aortic arch. Salivary glands: Multiple small enhancing nodules in the right parotid gland largest measuring up to 6.5 mm. Thyroid: Right lobe of the thyroid is absent. Soft tissues: Normal. No significant soft tissue swelling. Bones/joints: DJD. IMPRESSION: 1. No acute findings. 2. Right parotid nodules which may be secondary to Warthin's tumor, pleomorphic adenomas or malignancy. Recommend clinical correlation and follow-up. REFERENCES: NASCET CRITERIA. The degree of stenosis in the cervical segment of the internal carotid artery is based on NASCET criteria. Normal is no stenosis. Mild is less than 50% stenosis. Moderate is 50-69% stenosis. Severe is 70% to 99% stenosis. Total occlusion is no detectable patent lumen.
--- NOTE | 2025-06-16 22:58 | CT_ITS ---
PROCEDURE INFORMATION: Exam: CTA Head With Contrast, Venography Exam date and time: 06/16/2025 11:29 PM Age: 75 years old Clinical indication: Other: Rue weakness TECHNIQUE: Imaging protocol: Computed tomography angiography of the head with contrast. Exam focused on the veins. 3D rendering (Not supervised by radiologist): MIP and/or 3D reconstructed images were created by the technologist. Radiation optimization: All CT scans at this facility use at least one of these dose optimization techniques: automated exposure control; mA and/or kV adjustment per patient size (includes targeted exams where dose is matched to clinical indication); or iterative reconstruction. Contrast material: ISO; Contrast volume: 80 ml; Contrast route: INTRAVENOUS (IV); COMPARISON: CT HEAD/BRAIN WO CON 06/16/2025 11:27 PM FINDINGS: Superior sagittal sinus: Patent. Straight sinus: Patent. Transverse sinuses: The right transverse sinus is faintly opacified. Left transverse sinus is hypoplastic and faintly opacified. Sigmoid sinuses: Faint opacification of the right sigmoid sinus. Faint opacification of the left sigmoid sinus. Internal jugular veins: Minimal to no opacification of the right and left internal jugular veins. Brain: No definite mass, mass effect, or midline shift. Cerebral ventricles: No ventriculomegaly. Soft tissues: Unremarkable. Other findings: No large vessel occlusion. Mild atherosclerosis. IMPRESSION: The exam is limited due to bolus timing with poor opacification the venous sinuses. Subtle partial thrombosis can not be excluded.
--- NOTE | 2025-06-16 22:58 | CT_ITS ---
PROCEDURE INFORMATION: Exam: CT Head Without Contrast Exam date and time: 06/16/2025 11:27 PM Age: 75 years old Clinical indication: Other: Rue weakness TECHNIQUE: Imaging protocol: Computed tomography of the head without contrast. Radiation optimization: All CT scans at this facility use at least one of these dose optimization techniques: automated exposure control; mA and/or kV adjustment per patient size (includes targeted exams where dose is matched to clinical indication); or iterative reconstruction. COMPARISON: CT HEAD/BRAIN WO CON 06/03/2025 3:20 PM FINDINGS: Brain: Moderate brain volume loss. Mild chronic ischemic changes. No mass, hemorrhage or acute infarct. Cerebral ventricles: No ventriculomegaly. Paranasal sinuses: Visualized sinuses are unremarkable. No fluid levels. Mastoid air cells: Visualized mastoid air cells are well aerated. Bones: Unremarkable. No acute fracture. Soft tissues: Unremarkable. IMPRESSION: No acute intracranial findings.
[2025-06-16 23:04] LABS: Hematocrit 48.2 % (37.0-47.0); Hemoglobin 16.5 g/dL (12.2-16.2); Immature Granulocytes % 0.4 %; Mean Corpuscular HGB Conc 34.2 g/dL (31.8-35.4); Mean Corpuscular Hemoglobin 30.0 pg (27.0-31.2); Mean Corpuscular Volume 87.6 fl (81-99); Nucleated Red Blood Cells % 0 %; Platelet Count 431 K/mm3 (142-424); Red Blood Count 5.50 M/mm3 (4.20-5.40); Red Cell Distribution Width-SD 42.2 fL; White Blood Count 14.7 K/mm3 (4.8-10.8)
[2025-06-16 23:06] LABS: Albumin Level 4.8 g/dl (3.5-5.0); Chloride 102 mmol/L (98-107)
[2025-06-16 23:07] LABS: Potassium 3.2 mmoL/L (3.5-5.1); Sodium 139 mmol/L (136-145)
[2025-06-16 23:09] LABS: Alanine Aminotransferase 18 U/L (12-78); Anion Gap 16.2 mEq/L (5-15); Aspartate Amino Transferase 28 U/L (14-36); Bilirubin,Total 1.1 mg/dl (0.2-1.3); Blood Urea Nitrogen 23 mg/dl (7-17); Carbon Dioxide 24 mmol/L (22.0-30.0); Creatinine Clearance Estimated 45 mL/min (50-200); Creatinine,Serum 1.00 mg/dl (0.52-1.04); Estimated Glomerular Filt Rate 54 ml/min (>60); GFR (African American) 65 ML/MIN (>60)
[2025-06-16 23:10] LABS: Albumin/Globulin Ratio 1.5 (1.1-1.8); Alkaline Phosphatase 76 U/L (38-126); Calcium 10.0 mg/dl (8.4-10.2); Globulin 3.1 g/dL (1.3-3.2); Glucose 137 mg/dl (74-100); Total Protein,Serum 7.9 g/dl (6.3-8.2)
[2025-06-16 23:12] LABS: Activated Partial Thrombo Time 23.4 seconds (22.8-30.6); INR 1.02 (0.9-1.1); Prothrombin Time 11.3 seconds (10.1-12.5)
--- NOTE | 2025-06-16 23:22 | HMH.EDGENADL ---
Discharge Plan Disposition Patient Disposition: Home, Self-Care Prescriptions Prescriptions: New gabapentin 100 mg capsule 200 mg PO Q8H PRN (Reason: pain, severe) Qty: 18 0RF No Action Eliquis 5 mg tablet 5 mg PO BID 90 Days Qty: 180 3RF methocarbamol 750 mg tablet 750 mg PO HS Qty: 30 0RF acyclovir 800 mg tablet 800 mg PO 5XDAY 7 Days Qty: 35 0RF albuterol sulfate 90 mcg/actuation HFA aerosol inhaler 1 inh inhalation Q4H PRN (Reason: shortness of breath or wheezing) Qty: 8.5 0RF Referrals Follow up/Referrals: Brooklynn Torres MD [Primary Care Provider, Medical] - See instructions Activity Restrictions/Add. Instructions Additional Instructions/Restrictions: You are being prescribed a short course of gabapentin for your pain. Take this as prescribed. If you find that the gabapentin does not help, you can switch back to taking oxycodone, but do not take both together. I do encourage you to follow-up with your primary care physician regarding the weakness in your right arm, which is likely related to your shingles infection. If you develop any new or worsening symptoms, or if you become concerned for your health for any reason, return to the emergency department for evaluation. Clinical Impressions Clinical Impression: Weakness of right arm, Shingles rash Print Language Print Language: Hungarian Discharge ED Provider: Keith Dozier General Adult HPI <Keith Dozier MD - Last Filed: 06/16/25 23:32> General Chief complaint: PAIN Stated complaint: shingles times 2 weeks, neck pain , right arm numb Time Seen by Provider: 06/16/25 22:49 Mode of Arrival: Wheelchair Source of Information: Patient Description of Symptoms (Recalled from ER Triage Doc. by RN): PT REPORTS SHINGLES FOR THE PAST TWO WEEKS AND NOW SHE IS COMPLAING OF ACHING IN HER RIGHT ARM AND UNABLE TO MOVE IT DUE TO THE PAIN, PT ALSO REPORTS RIGHT THUMB NUMBNESS AND NECK PAIN. PT ALSO REPORTS GENERALIZED WEAKNESS AND LACK OF APPETITE History of Present Illness HPI narrative: Katrina Price is a 75F with a history of mitral regurgitation, UTI, hypertension, thyroid nodule who presents to the emergency department for complaints of right upper extremity weakness and pain. Patient states that she was diagnosed with a shingles infection on her right upper back almost 2 weeks ago and recently finished a course of acyclovir. She states that overall, the rash seems to be improving although she still has some pain in this area. She has intermittent numbness and tingling over the past week that runs down her right arm into her right thumb. She states that she cannot lift her right upper extremity high at all due to weakness and pain. She states that sometimes the pain runs up her right neck. She was recently prescribed oxycodone for pain and last took a dose last night because she was unable to sleep and states that this does help the pain but does not like to take it. She denies any chest pain or shortness of breath. Related Data Previous Rx's ?Medication ?Instructions ?Recorded albuterol sulfate 90 mcg/actuation 1 inh inhalation Q4H PRN shortness 01/18/25 aerosol inhaler of breath or wheezing #8.5 grams apixaban 5 mg tablet (Eliquis) 5 mg PO BID 90 days #180 tabs 03/18/25 acyclovir 800 mg tablet 800 mg PO 5XDAY 7 days #35 tabs 06/03/25 methocarbamol 750 mg tablet 750 mg PO HS #30 tabs 06/03/25 gabapentin 100 mg capsule 200 mg (2 x 100 mg) PO Q8H PRN 06/17/25 pain, severe #18 caps Allergies Allergy/AdvReac Type Severity Reaction Status Date / Time Sulfa (Sulfonamide Allergy Unknown Unknown Verified 04/26/25 11:09 Antibiotics) allergy reaction [facility] <Keith Dozier MD - Last Filed: 06/16/25 23:32> [facility] Disclaimer: The information contained in this section may have been updated after the patient was seen, as this information can be updated by other users. Medical History Mitral regurgitation Abnormal electrocardiography Family History Other No significant family history Social History Smoking Status: Current some day smoker tobacco type: cigarettes packs per day: 1 second hand exposure: Yes alcohol intake: never counseling provided: none substance use type: denies use current occupational status: retired Travel in the last 8 weeks?: Inside the [place] household members: spouse housing: house current occupational exposures/hazards: No caffeine: No Have you lived/traveled outside US in past 30 days?: No Contact w/someone who lives/traveled outside US past 30 days?: No Exposure to someone with infectious disease in past 14 days?: No Do you have a fever (greater than 100.4 F or 38 C)?: No Have you tested positive for COVID-19?: No Exposed to someone with COVID-19 in past 14 days?: No Do you have a sore throat?: No Do you have a cough?: No Do you have any weakness?: No Do you have any diarrhea?: No Are you experiencing any unusual bleeding?: No Do you have any muscle aches/pain?: No Do you have any abdominal pain?: No Are you experiencing loss of taste or smell?: No Other Medical History Have you received the Flu Vaccine for this season: No Have you received the Pneumonia Vaccine: No <Keith Dozier MD - Last Filed: 06/16/25 23:32> ROS Obtained: Yes Systems reviewed as appropriate & no additional complaints except as documented Physical Exam <Keith Dozier MD - Last Filed: 06/16/25 23:32> General General appearance: alert and in no apparent distress Head Head exam: atraumatic Eye Eye exam: Present normal appearance ENT ENT exam: Present normal external ear exam Neck Neck exam: Present full ROM Chest Chest inspection: Present symmetric chest wall rise Respiratory Respiratory exam: Present normal lung sounds bilaterally; Absent respiratory distress Cardiovascular Cardiovascular exam: Present regular rate and normal rhythm Abdominal Exam Abdominal exam: Present soft; Absent tenderness or guarding Extremities Exam Extremities exam: Present normal inspection Back Exam Back exam: Present normal inspection Neurological Exam Neurological exam: Present alert, oriented X3, CN II-XII intact and other (Weakness with abduction of the right upper extremity. Annealing Furnace Tender strength is intact. Sensation grossly intact.) Psychiatric Psychiatric exam: Present normal affect Skin Skin exam: Present warm, dry and rash (Healing rash to the right upper back/shoulder area) Medical Decision Making <Keith Dozier MD - Last Filed: 06/16/25 23:32> Medical Records Screening: Per USPSTF and CDC recommendations, given the prevalence of disease in our region, it is our hospital?s policy to screen for HIV and viral Hepatitis for all patients aged 18 and over and those with ongoing risk factors. Justin Inquiry Pt receiving controlled substance: No Vital Signs: 06/16/25 22:25 06/17/25 01:23 Temperature 98.4 F 98.2 F Temperature Source Oral Pulse Rate 52 L Pulse Rate [Right] 81 Respiratory Rate 22 18 Blood Pressure 133/64 Blood Pressure [Right Arm] 158/69 H Blood Pressure Mean [Right Arm] 98 02 Sat by Pulse Oximetry 99 Oxygen Delivery Method Room Air Room Air Lab Data Lab Results 06/16/25 22:25: WBC 14.7 H, RBC 5.50 H, Hgb 16.5 H, Hct 48.2 H, MCV 87.6, MCH 30.0, MCHC 34.2, RDW 13.2, Plt Count 431 H, MPV 10.1, Neut % (Auto) 66.7, Lymph % (Auto) 25.8, Storey % (Auto) 6.1, Eos % (Auto) 0.0 L, Baso % (Auto) 1.0, Neut # (Auto) 9.8 H, Lymph # (Auto) 3.8, Storey # (Auto) 0.9, Eos # (Auto) 0.0, Baso # (Auto) 0.1, PT 11.3, INR 1.02, APTT 23.4, Sodium 139, Potassium 3.2 L, Chloride 102, Carbon Dioxide 24, Anion Gap 16.2 H, BUN 23 H, Creatinine 1.00, Estimated Creat Clear 45, Estimated GFR 54 L, Est GFR ( Amer) 65, Glucose 137 H, Calcium 10.0, Total Bilirubin 1.1, AST 28, ALT 18, Alkaline Phosphatase 76, Total Protein 7.9, Albumin 4.8, Globulin 3.1, Albumin/Globulin Ratio 1.5 06/16/25 22:25 06/16/25 22:25 Orders (Tests/Meds): ED MEDICATIONS Discontinued Medications Generic Name Dose Route Start Last Admin Trade Name Freq PRN Reason Stop Dose Admin Gabapentin 200 mg 06/17/25 00:39 06/17/25 00:49 Gabapentin 100mg Capsule PO 06/17/25 00:40 200 mg ONCE ONE Administration Iopamidol 80 ml 06/16/25 23:25 06/16/25 23:27 Iopamidol-370 (76%);100ml Bottle IV 06/16/25 23:26 80 ml ONCE ONE Administration Potassium Chloride 60 meq 06/16/25 23:30 06/16/25 23:38 Potassium Chloride 20meq Tab PO 06/16/25 23:31 60 meq ONCE ONE Administration Sodium Chloride 10 ml 06/16/25 23:25 06/16/25 23:27 Sodium Chloride 0.9% 10ml Syr (Rad Only) IV 06/16/25 23:26 10 ml ONCE ONE Administration Sodium Chloride 50 ml 06/16/25 23:25 06/16/25 23:26 0.9 % Sodium Chloride 50 Ml Vial IV 06/16/25 23:26 50 ml ONCE ONE Administration ORDERS Category Date Time Status CT angio head Stat Cat Scan 06/16/25 22:[address] angio neck Stat Cat Scan 06/16/25 22:[address] head/brain wo con Stat Cat Scan 06/16/25 22:58 Completed CBC w/Auto Diff [Complete Blood Count Auto Diff] Stat Lab 06/16/25 22:25 Completed CMP [Comprehensive Metabolic Panel] Stat Lab 06/16/25 22:25 Completed PT INR [Prothrombin Time INR] Stat Lab 06/16/25 22:25 Completed PTT [Activated Partial Thrombo Time] Stat Lab 06/16/25 22:25 Completed Medical Decision Narrative: Katrina Price is a 75F with a history of mitral regurgitation, UTI, hypertension, thyroid nodule who presents to the emergency department for complaints of right upper extremity weakness and pain. Patient states that she was diagnosed with a shingles infection on her right upper back almost 2 weeks ago and recently finished a course of acyclovir. She states that overall, the rash seems to be improving although she still has some pain in this area. She has intermittent numbness and tingling over the past week that runs down her right arm into her right thumb. She states that she cannot lift her right upper extremity high at all due to weakness and pain. She states that sometimes the pain runs up her right neck. She was recently prescribed oxycodone for pain and last took a dose last night because she was unable to sleep and states that this does help the pain but does not like to take it. She denies any chest pain or shortness of breath. On arrival, patient is mildly hypertensive with blood pressure 158/69, heart rate 81 bpm, afebrile, oxygen saturation 99% SpO2 on room air. Physical exam, as stated above, revealed an overall well-appearing female in no distress. She has weakness with abduction of the right upper extremity but profile saw operator strength is preserved. Sensation is grossly intact. 2+ radial pulses bilaterally. Remainder of her neuroexam is unremarkable and nonfocal. She has a healing rash in the right upper back near the right posterior shoulder consistent with healing shingles rash. Differential diagnosis includes, but is not limited to: Stroke, neuropraxia, electrolyte derangement, metabolic derangement, among others. The most morbid conditions were considered and workup was based on these. Workup in the emergency department included: CTA of the head and neck, CT head without contrast, CBC, CMP, PT/INR, APTT At this time, patient's workup shows leukocytosis of 14.7 without left shift. She appears mildly hemoconcentrated with hemoglobin of 16.5, hematocrit of 48.2, platelets of 431. Coagulation studies unremarkable. Patient is mildly hypokalemic with potassium of 3.2, mildly elevated anion gap of 16.2, BUN chronically elevated 23, no ALEXANDRO, glucose normal at 137. Calcium normal at 10. Liver enzymes within normal limits. At this time, CT imaging is pending. Patient's care was transferred to the oncoming physician, Dr. Li, pending completion of her workup. <Matteo Li MD - Last Filed: 06/17/25 02:19> Vital Signs: 06/16/25 22:25 06/17/25 01:23 Temperature 98.4 F 98.2 F Temperature Source Oral Pulse Rate 52 L Pulse Rate [Right] 81 Respiratory Rate 22 18 Blood Pressure 133/64 Blood Pressure [Right Arm] 158/69 H Blood Pressure Mean [Right Arm] 98 02 Sat by Pulse Oximetry 99 Oxygen Delivery Method Room Air Room Air Lab Data Lab Results 06/16/25 22:25: WBC 14.7 H, RBC 5.50 H, Hgb 16.5 H, Hct 48.2 H, MCV 87.6, MCH 30.0, MCHC 34.2, RDW 13.2, Plt Count 431 H, MPV 10.1, Neut % (Auto) 66.7, Lymph % (Auto) 25.8, Storey % (Auto) 6.1, Eos % (Auto) 0.0 L, Baso % (Auto) 1.0, Neut # (Auto) 9.8 H, Lymph # (Auto) 3.8, Storey # (Auto) 0.9, Eos # (Auto) 0.0, Baso # (Auto) 0.1, PT 11.3, INR 1.02, APTT 23.4, Sodium 139, Potassium 3.2 L, Chloride 102, Carbon Dioxide 24, Anion Gap 16.2 H, BUN 23 H, Creatinine 1.00, Estimated Creat Clear 45, Estimated GFR 54 L, Est GFR ( Amer) 65, Glucose 137 H, Calcium 10.0, Total Bilirubin 1.1, AST 28, ALT 18, Alkaline Phosphatase 76, Total Protein 7.9, Albumin 4.8, Globulin 3.1, Albumin/Globulin Ratio 1.5 Orders (Tests/Meds): ED MEDICATIONS Discontinued Medications Generic Name Dose Route Start Last Admin Trade Name Freq PRN Reason Stop Dose Admin Gabapentin 200 mg 06/17/25 00:39 06/17/25 00:49 Gabapentin 100mg Capsule PO 06/17/25 00:40 200 mg ONCE ONE Administration Iopamidol 80 ml 06/16/25 23:25 06/16/25 23:27 Iopamidol-370 (76%);100ml Bottle IV 06/16/25 23:26 80 ml ONCE ONE Administration Potassium Chloride 60 meq 06/16/25 23:30 06/16/25 23:38 Potassium Chloride 20meq Tab PO 06/16/25 23:31 60 meq ONCE ONE Administration Sodium Chloride 10 ml 06/16/25 23:25 06/16/25 23:27 Sodium Chloride 0.9% 10ml Syr (Rad Only) IV 06/16/25 23:26 10 ml ONCE ONE Administration Sodium Chloride 50 ml 06/16/25 23:25 06/16/25 23:26 0.9 % Sodium Chloride 50 Ml Vial IV 06/16/25 23:26 50 ml ONCE ONE Administration ORDERS Category Date Time Status CT angio head Stat Cat Scan 06/16/25 22:[address] angio neck Stat Cat Scan 06/16/25 22:[address] head/brain wo con Stat Cat Scan 06/16/25 22:58 Completed CBC w/Auto Diff [Complete Blood Count Auto Diff] Stat Lab 06/16/25 22:25 Completed CMP [Comprehensive Metabolic Panel] Stat Lab 06/16/25 22:25 Completed PT INR [Prothrombin Time INR] Stat Lab 06/16/25 22:25 Completed PTT [Activated Partial Thrombo Time] Stat Lab 06/16/25 22:25 Completed Medical Decision Narrative: Katrina Price is a 75F with a history of mitral regurgitation, UTI, hypertension, thyroid nodule who presents to the emergency department for complaints of right upper extremity weakness and pain. Patient states that she was diagnosed with a shingles infection on her right upper back almost 2 weeks ago and recently finished a course of acyclovir. She states that overall, the rash seems to be improving although she still has some pain in this area. She has intermittent numbness and tingling over the past week that runs down her right arm into her right thumb. She states that she cannot lift her right upper extremity high at all due to weakness and pain. She states that sometimes the pain runs up her right neck. She was recently prescribed oxycodone for pain and last took a dose last night because she was unable to sleep and states that this does help the pain but does not like to take it. She denies any chest pain or shortness of breath. On arrival, patient is mildly hypertensive with blood pressure 158/69, heart rate 81 bpm, afebrile, oxygen saturation 99% SpO2 on room air. Physical exam, as stated above, revealed an overall well-appearing female in no distress. She has weakness with abduction of the right upper extremity but profile saw operator strength is preserved. Sensation is grossly intact. 2+ radial pulses bilaterally. Remainder of her neuroexam is unremarkable and nonfocal. She has a healing rash in the right upper back near the right posterior shoulder consistent with healing shingles rash. Differential diagnosis includes, but is not limited to: Stroke, neuropraxia, electrolyte derangement, metabolic derangement, among others. The most morbid conditions were considered and workup was based on these. Workup in the emergency department included: CTA of the head and neck, CT head without contrast, CBC, CMP, PT/INR, APTT At this time, patient's workup shows leukocytosis of 14.7 without left shift. She appears mildly hemoconcentrated with hemoglobin of 16.5, hematocrit of 48.2, platelets of 431. Coagulation studies unremarkable. Patient is mildly hypokalemic with potassium of 3.2, mildly elevated anion gap of 16.2, BUN chronically elevated 23, no ALEXANDRO, glucose normal at 137. Calcium normal at 10. Liver enzymes within normal limits. At this time, CT imaging is pending. Patient's care was transferred to the oncoming physician, Dr. Li, pending completion of her workup. Patient's CT scans returned, on my independent interpretation, without evidence of acute hemorrhagic or ischemic stroke or intracranial lesion. Patient was ultimately discharged by the previous provider without my intervention. Critical Care <Keith Dozier MD - Last Filed: 06/16/25 23:32> Critical Care Time Critical Care Time: No
[2025-06-16] MEDS: 0.9 % SODIUM CHLORIDE 50 ML VIAL IV (23:26)
[2025-06-16] MEDS: IOPAMIDOL-370 (76%);100ML BOTTLE 80 ML IV (23:27)
[2025-06-16] MEDS: SODIUM CHLORIDE 0.9% 10ML SYR (RAD ONLY) 10 ML IV (23:27)
[2025-06-16] MEDS: POTASSIUM CHLORIDE 20MEQ TAB 60 MEQ PO (23:38)
[2025-06-17] MEDS: GABAPENTIN 100MG CAPSULE 200 MG PO (00:49)
[2025-06-17 01:23] VITALS: BP 133/64; PULSE 52; RESP 18; TEMP 36.8; O2SAT 98
== END 2025-06-17 01:33 | disposition home or self-care (01) ==
PROVIDERS: Emergency Provider Student in an Organized Health Care Education/Training Program; PCP Family Medicine
DX: B02.8 Zoster with other complications (principal); M79.601 Pain in right arm; R53.1 Weakness; R20.2 Paresthesia of skin; E87.6 Hypokalemia
CPT/HCPCS: 70450; 70496; 70498; 80053; 85025; 85610; 85730; 99285; Q9967

== ENCOUNTER 2025-09-27 13:40 | Outpatient (CLI) | payer MEDICARE, SELFPAY ==
--- NOTE | 2025-09-27 13:45 | XR_ITS ---
FINAL REPORT TECHNIQUE: Bone densitometry calculations of the lumbar spine and bilateral hips were obtained. CLINICAL HISTORY: SCREENING COMPARISON: None FINDINGS: Using L1-4, the bone mineral density of the spine is 0.645 g/cm2, corresponding to T-score of -3.7 and a Z score of -1.2. This is within the range of osteoporosis. Using the left hip, the bone mineral density of the femoral neck is 0.546 g/cm2, corresponding to a T-score of -3.2 and a Z-score of -1.4. This is within the range of osteoporosis. Using the right hip, the bone mineral density of the femoral neck is 0.501 g/cm?, corresponding to a T-score of -3.1 and a Z-score of -1.0. This is within the range of osteoporosis NOTE: T-score: Standard deviation compared with peak bone mass of young adult mean. *Following the recommendations of the International Society of Bone densitometry, classification of hip BMD is based on the lower of two T-scores; total hip or femoral neck. IMPRESSION: 1. Bone mineral density of the lumbar spine within the range of osteoporosis. 2. Bone mineral density of the bilateral femoral necks within the range of osteoporosis. Reviewed, Interpreted and Dictated by Liberty Ivory MD Transcribed by Monique Douglas Authenticated and [facility]
--- OUTSIDE RECORDS SUMMARY | 2025-09-27 13:53 | XMS_ITS | Clinical Summary ---
Author Organization [facility] Address [address] [place] [address] Care Team Providers Care Development Rep Name Role Phone Angel Torres MD Primary Care Provider [phone] Allergies Active Allergy Reactions Criticality Noted Date [...] 1994 ZOSTER VACCINE (1 of 2) 1999 COVID-19 Vaccine (3 - Pfizer risk series) 09/08/2021 08/11/2021, 07/21/2021 RSV Vaccine - Adults (1 - 1- dose 75+ series) 2024 ANNUAL WELLNESS VISIT 06/17/2024 HEPATITIS C SCREENING 06/17/2024 INFLUENZA VACCINE 06/04/2025 Medical Devices Implanted Type Area Cyber Intel Planner Device Identifier Shelf Expiration Date Model / Serial / Lot Stent Uretrl Polaris Ultr No Gw 5f24cm - [id number] Implanted:Qty : 1 on 12/26/2017 by Aneudy Willard MD at [facility] Implant Right: Ureter [employer] KELIN 09/16/2020 [id number] / / [id number] Insurance 1945 [facility] [place] [place] [id number] MEDICARE A & B Advance Directives * Full Code (Latest Code Status on File) Date Activated Date Inactivated Comments 12/26/2017 6:09 AM 12/26/2017 8:42 PM Care Teams Development Rep Relationship Specialty Start Date End Date Angel Torres MD [address] [facility] [facility] [address] [place] [id number] PCP - General Family Medicine 02/25/24
--- OUTSIDE RECORDS SUMMARY | 2025-09-27 13:53 | XMS_ITS | Clinical Summary ---
Author Organization [facility] ([place], [place], [place], [place], [place]) Address [address] [place] [address] Care Team Providers Care Exhaust And Muffler Fitter Name Role Phone Angel Torres MD Primary Care Provider [phone] Allergies Active Allergy Reactions Criticality Noted Date [...] 0 11/22/2023 Family and Community Support Answer Jonh e Recorded Help with Day to Day Activities Not on file 11/22/2023 Feeling Lonely or Isolated Not on file 11/22 Educational Attainment Answer Date Singh rded Speak language other than Wallisian at home Not on file 11/22/2023 Want [...] or (1 - 1-dose 75+ series) 2024 Tobacco Cessation Counseling and Screening (12+) 08/23/2024 08/23/2023 Falls Risk Screening 11/04/2024 COVID-19 VACCINE (3 - season) 07/05/202506/2021, 07/21/2021 Influenza Vaccine (#1) 2025 Medical Devices Implanted Type Area [employer] Device Identifier Shelf Expiration Date Model / Serial / Lot Stent Uret Percflx + 4.8frx22 [id number] - [id number] Implanted:Qty : 1 on 07/23/2023 by Sam Hernandez MD at [facility] IMPLANTS Right: Ureter [employer]POCKET [employer]TER [employer] [id number] 09/20/2025 [id number] 10 / / [id number] Stent Uret Percflx + 4.8frx24 [id number] - [id number] Implanted:Qty : 1 on 08/02/2023 by Sam Hernandez MD at [facility] IMPLANTS Right: Ureter [employer]:UROLOGY/POCKET SETTER LOCKST[employer] [id number] 01/30/2026 [id number] 20 / / [id number] Stent Uret Percflx + 4.8frx24 [id number] - [id number] Implanted:Qty : 1 on 08/23/2023 by Sam Hernandez MD at [facility] IMPLANTS Right: Ureter [employer]:UR[employer]/POCKET SETTER LOCK[employer] [id number] 01/13/2026 [id number] 20 / / [id number] Insurance MEDICARE PART A B Care Teams Exhaust And Muffler Fitter Relationship Specialty Start Date End Date Angel Torres MD [address] [place] [address] PCP - General Family Medicine 07/17/23
--- OUTSIDE RECORDS SUMMARY | 2025-09-27 13:53 | XMS_ITS | Referral Summary ---
Author Organization [employer] ([place], [place], [place], [place], [place]) Address [address] [place] [address] Care Team Providers Care Physical Medicine Specialist Name Role Phone Angel Torres MD Primary Care Provider [phone] Allergies Active Allergy Reactions Criticality Noted Date [...] Date Singh rded Speak language other than Green[place]ic at home Not on file 11/22/2023 Want [...] on file Medical Devices Implanted Type Area Mailroom Assistant Device Identifier Shelf Expiration Date Model / Serial / Lot Stent Uret Percflx + 4.8frx22 [id number] - [id number] Implanted:Qty : 1 on 07/23/2023 by Sam Hernandez MD at [facility] IMPLANTS Right: Ure[employer] [id number] 09/20/2025 [id number] 10 / / [id number] Stent Uret Percflx + 4.8frx24 [id number] - [id number] Implanted:Qty : 1 on 08/02/2023 by Sam Hernandez MD at [facility] IMPLANTS Right: Ureter [employer] [id number] 01/30/2026 [id number] 20 / / [id number] Stent Uret Percflx + 4.8frx24 [id number] - [id number] Implanted:Qty : 1 on 08/23/2023 by Sam Hernandez MD at [facility] IMPLANTS Right: Ure[employer] [id number] 01/13/2026 [id number] 20 / / [id number] Insurance [place] [id number] MEDICARE PART A B Care Teams Physical Medicine Specialist Relationship Specialty Start Date End Date Angel Torres MD [address] [place]ADE[place] JARVIS [id number] PCP - General Family Medicine 07/17/23
== END 2025-09-27 23:59 ==
LOC: RAD 13:41
PROVIDERS: PCP Family Medicine; Visit Provider Family Medicine
DX: Z13.820 Encounter for screening for osteoporosis (principal); M81.0 Age-related osteoporosis without current pathological fracture
CPT/HCPCS: 77080